=== PATIENT | female | born 1965 | race Two or more races ===

== ENCOUNTER → 2017-02-11 | Outpatient (CLI) | payer MEDICAID, MEDICARE ==
[2017-02-11 12:39] LABS: ABSOLUTE EOSINOPHILS # (AUTO) 0.2 10^3/uL (0.0-0.6); ABSOLUTE LYMPHOCYTES (AUTO) 1.5 10^3/uL (0.5-4.7); ABSOLUTE MONOCYTES (AUTO) 0.6 10^3/uL (0.1-1.4); ABSOLUTE NEUT (AUTO) 2.8 10^3/uL (1.7-8.2); BASOPHILS % (AUTO) 0.4 % (0-2); EOSINOPHILS % (AUTO) 3.7 % (0-6); HEMATOCRIT 47.1 % (36.0-47.0); HEMOGLOBIN 16.4 g/dL (12.0-15.5); HGB HCT DIFFERENCE 2.1; LYMPHOCYTES % (AUTO) 30.2 % (13-45); MEAN CORPUSCULAR HEMOGLOBIN 32.3 pg (27.0-33.4); MEAN CORPUSCULAR HGB CONC 34.8 g/dL (32.0-36.0); MEAN CORPUSCULAR VOLUME 93 fl (80-97); RED BLOOD COUNT 5.06 10^6/uL (3.72-5.28); RED CELL DISTRIBUTION WIDTH 12.5 % (11.5-14.0); SEGMENTED NEUTROPHILS % (AUTO) 54.7 % (42-78); WHITE BLOOD COUNT 5.1 10^3/uL (4.0-10.5)
[2017-02-11 13:07] LABS: ALANINE AMINOTRANSFERASE 50 U/L (9-52); ALBUMIN 4.5 g/dL (3.5-5.0); ALKALINE PHOSPHATASE 85 U/L (38-126); ANION GAP 16 (5-19); ASPARTATE AMINO TRANSFERASE 24 U/L (14-36); BILIRUBIN,DIRECT 0.5 mg/dL (0.0-0.4); BILIRUBIN,TOTAL 0.6 mg/dL (0.2-1.3); BLOOD UREA NITROGEN 10 mg/dL (7-20); CALCIUM 9.3 mg/dL (8.4-10.2); CARBON DIOXIDE 24 mmol/L (22-30); CHLORIDE 103 mmol/L (98-107); CREATININE RESULT 0.66 mg/dL (0.52-1.25); GLUCOSE 154 mg/dL (75-110); POTASSIUM 4.4 mmol/L (3.6-5.0); SODIUM 142.9 mmol/L (137-145); TOTAL PROTEIN 7.3 g/dL (6.3-8.2)
== END ==
LOC: OD 11:26
PROVIDERS: ATTEND Nurse Practitioner Family
DX: R22.1 Localized swelling, mass and lump, neck (principal)
CPT/HCPCS: 36415; 80053; 85025

== ENCOUNTER 2017-06-17 13:38 | Emergency (ER) | payer MEDICARE, MEDICAID ==
--- NOTE | 2017-06-17 14:34 | ER Document Report ---
ED Medical Screen (RME) - General Chief Complaint: Abdominal Pain Stated Complaint: STOMACH PAIN Time Seen by Provider: 06/17/17 14:27 Notes: RME DISCLOSURE I have seen this patient as part of a Rapid Medical Evaluation and, if applicable, placed any initially appropriate orders. The patient will be seen and fully evaluated, including a full history and physical exam, by a provider ( in Main ED or Fast Track) when a room becomes available. 52-year-old female sent here by her doctor's office for evaluation of her abdominal pain. The abdominal pain has been ongoing for 1 month but progressively worsening especially so in the past 1 week. She has not had any nausea vomiting diarrhea fevers chills. No prior history of colitis diverticulitis. The PCP faxed over some medical information regarding this patient. EXAM Tachycardic NOTE Patient declines pain medicine at this time TRAVEL OUTSIDE OF THE [place] IN LAST 30 DAYS: No - Related Data Allergies/Adverse Reactions: No Known Allergies Allergy (Verified 06/17/17 13:42) Past Medical History - Past Medical History Cardiac Medical History: Reports: Hx Hypercholesterolemia, Hx Hypertension Neurological Medical History: Reports: Hx Migraine Endocrine Medical History: Reports: Hx Diabetes Mellitus Type 2 Musculoskeltal Medical History: Reports Hx Arthritis Past Surgical History: Reports: Hx Cholecystectomy, Hx Orthopedic Surgery - Back Surgery, Hx Tubal Ligation - Immunizations Hx Diphtheria, Pertussis, Tetanus Vaccination: Yes Physical Exam - Vital signs Vitals: Temp Pulse Resp BP Pulse Ox 97.4 F 114 H 24 H 140/106 H 97 06/17/17 13:45 06/17/17 13:45 06/17/17 13:45 06/17/17 13:45 06/17/17 13:45 Course - Vital Signs Vital signs: Temp Pulse Resp BP Pulse Ox 97.4 F 114 H 24 H 140/106 H 97 06/17/17 13:45 06/17/17 13:45 06/17/17 13:45 06/17/17 13:45 06/17/17 13:45
[2017-06-17 15:48] LABS: ABSOLUTE BASOPHILS # (AUTO) 0.1 10^3/uL (0.0-0.2); ABSOLUTE EOSINOPHILS # (AUTO) 0.2 10^3/uL (0.0-0.6); ABSOLUTE MONOCYTES (AUTO) 0.8 10^3/uL (0.1-1.4); ABSOLUTE NEUT (AUTO) 7.8 10^3/uL (1.7-8.2); BASOPHILS % (AUTO) 0.7 % (0-2); EOSINOPHILS % (AUTO) 1.5 % (0-6); HEMOGLOBIN 18.2 g/dL (12.0-15.5); LYMPHOCYTES % (AUTO) 18.8 % (13-45); MEAN CORPUSCULAR HEMOGLOBIN 31.4 pg (27.0-33.4); MEAN CORPUSCULAR HGB CONC 34.4 g/dL (32.0-36.0); MEAN CORPUSCULAR VOLUME 91 fl (80-97); MONOCYTES % (AUTO) 6.9 % (3-13); PLATELET COUNT 396 10^3/uL (150-450); RED CELL DISTRIBUTION WIDTH 12.9 % (11.5-14.0); SEGMENTED NEUTROPHILS % (AUTO) 72.1 % (42-78); TOTAL CELLS COUNTED % (AUTO) 100 %; WHITE BLOOD COUNT 10.8 10^3/uL (4.0-10.5)
[2017-06-17 15:59] LABS: APPEARANCE,URINE SLIGHTLY-CLOUDY; BILIRUBIN,URINE NEGATIVE (NEGATIVE); COLOR,URINE YELLOW; GLUCOSE, URINE NEGATIVE (NEGATIVE); KETONES,URINE NEGATIVE (NEGATIVE); LEUKOCYTE ESTERASE,URINE NEGATIVE (NEGATIVE); NITRITE,URINE NEGATIVE (NEGATIVE); PROTEIN,URINE 100 mg/dL (NEGATIVE); UROBILINOGEN,URINE NEGATIVE mg/dL (<2.0)
[2017-06-17 16:06] LABS: ALANINE AMINOTRANSFERASE 40 U/L (9-52); ALBUMIN 5.1 g/dL (3.5-5.0); ALKALINE PHOSPHATASE 110 U/L (38-126); ANION GAP 10 (5-19); ASPARTATE AMINO TRANSFERASE 24 U/L (14-36); BILIRUBIN,DIRECT 0.2 mg/dL (0.0-0.4); BILIRUBIN,TOTAL 0.7 mg/dL (0.2-1.3); BLOOD UREA NITROGEN 13 mg/dL (7-20); CALCIUM 10.5 mg/dL (8.4-10.2); CARBON DIOXIDE 24 mmol/L (22-30); CHLORIDE 105 mmol/L (98-107); GLUCOSE 139 mg/dL (75-110); LIPASE 40.4 U/L (23-300); POTASSIUM 4.4 mmol/L (3.6-5.0); SODIUM 139.4 mmol/L (137-145)
[2017-06-17] MEDS ORDERED: HYDROMORPHONE HCL INJ/PF 2 MG/ML AMPULE IV ONE (16:16)
[2017-06-17] MEDS ORDERED: RINGERS SOLUTION,LACTATED 1,000 ML IV ONE (16:16)
[2017-06-17] MEDS ORDERED: MORPHINE SULFATE 10 MG/ML INJ IV ONE (16:21)
--- NOTE | 2017-06-17 16:23 | ER Document Report ---
ED General - General Mode of Arrival: Ambulatory Information source: Patient TRAVEL OUTSIDE OF THE [place] IN LAST 30 DAYS: No <SHARI FLYNN - Last Filed: 06/18/17 00:21> <DUARTE MCCALL - Last Filed: 06/18/17 00:25> - General Chief Complaint: Abdominal Pain Stated Complaint: STOMACH PAIN Time Seen by Provider: 06/17/17 14:27 Notes: Patient is a 52 year old female with a history of diabetes, Bipolar Disorder, menopause and cholecystectomy presents to the emergency department sent from PCP with a concern of acute abdomen complaining of multiple symptoms including right sided and lower abdominal pain, vaginal pain and bleeding onset 1 month ago worsening 1 week ago. Patient describes her abdominal pain as achy and stabbing and states it is now constant. Patient describes her vaginal bleeding as intermittent and states she notices it on toilet paper when she is wiping. Patient denies nausea, vomiting, hematuria, bloody stool, or hallucinations. Patient states she started menopause approximately 5-6 years ago. Patient states she has stopped all of her medications 1 week ago stating "I just don't want to take them anymore". Some of her medications that she discontinued include Oxycodone, Lyrica, Gabapentin and once daily Valium (done without consent of her PCP). (SHARI FLYNN) - Related Data Allergies/Adverse Reactions: No Known Allergies Allergy (Verified 06/17/17 13:42) Past Medical History - General Information source: Patient - Social History Smoking Status: Current Every Day Smoker Chew tobacco use (# tins/day): No Frequency of alcohol use: None Drug Abuse: None Family History: Reviewed & Not Pertinent, CAD Patient has suicidal ideation: No Patient has homicidal ideation: No - Past Medical History Cardiac Medical History: Reports: Hx Hypercholesterolemia, Hx Hypertension Neurological Medical History: Reports: Hx Migraine Endocrine Medical History: Reports: Hx Diabetes Mellitus Type 2 Musculoskeltal Medical History: Reports Hx Arthritis Past Surgical History: Reports: Hx Cholecystectomy, Hx Orthopedic Surgery - Back Surgery, Hx Tubal Ligation - Immunizations Hx Diphtheria, Pertussis, Tetanus Vaccination: Yes <SHARI FLYNN - Last Filed: 06/18/17 00:21> Review of Systems - Review of Systems Constitutional: No symptoms reported EENT: No symptoms reported Cardiovascular: No symptoms reported Respiratory: No symptoms reported Gastrointestinal: See HPI, Abdominal pain Genitourinary: No symptoms reported Female Genitourinary: See HPI, Post menopausal, Vaginal bleeding Musculoskeletal: No symptoms reported Skin: No symptoms reported Hematologic/Lymphatic: No symptoms reported Neurological/Psychological: No symptoms reported -: Yes All other systems reviewed and negative <GEESHARI - Last Filed: 06/18/17 00:21> Physical Exam <SHARI FLYNN - Last Filed: 06/18/17 00:21> <DUARTE MCCALL - Last Filed: 06/18/17 00:25> - Vital signs Vitals: Temp Pulse Resp BP Pulse Ox 97.4 F 114 H 24 H 140/106 H 97 06/17/17 13:45 06/17/17 13:45 06/17/17 13:45 06/17/17 13:45 06/17/17 13:45 - Notes Notes: GENERAL: Alert, interacts well. Tearful, appears uncomfortable. Hypertensive. HEAD: Normocephalic, atraumatic. EYES: Pupils equal, round, and reactive to light. Extraocular movements intact. ENT: Oral mucosa moist, tongue midline. NECK: Full range of motion. Supple. Trachea midline. LUNGS: Clear to auscultation bilaterally, no wheezes, rales, or rhonchi. No respiratory distress. HEART: Tachycardic. Regular rate and rhythm. No murmurs, gallops, or rubs. ABDOMEN: Soft, bilateral lower quadrant and LUQ tenderness to palpation. No guarding, rigidity or rebound. Non-distended. Bowel sounds slightly decreased. EXTREMITIES: Moves all 4 extremities spontaneously. NEUROLOGICAL: Alert and oriented x3. Normal speech. PSYCH: Tearful. Appears uncomfortable. SKIN: Warm, dry, normal turgor. No rashes or lesions noted. BACK: CVA tenderness to percussion. PELVIC: No rashes or obvious signs of infection on labia. Thick clumpy discharge in vaginal canal, no pus or blood, bilateral adnexal tenderness to palpation. Cervical motion tenderness to palpation. Adnexal tenderness bilaterally is greater than cervical motion tenderness. (SHARI FLYNN) Course - Laboratory Result Diagrams: 06/17/17 15:15 06/17/17 15:15 <SHARI FLYNN - Last Filed: 06/18/17 00:21> - Laboratory Result Diagrams: 06/17/17 15:15 06/17/17 15:15 <DUARTE MCCALL - Last Filed: 06/18/17 00:25> - Re-evaluation Re-evalutation: 06/17/17 20:23 CBC shows slight leukocytosis 10.8, hemoglobin slightly elevated at 18.2, chemistries unremarkable, LFTs normal, lipase normal, urinalysis shows 100 of protein and some dehydration with specific gravity of 1.030, no evidence of urinary tract infection, no significant blood only 5 RBCs dipstick negative, wet prep shows bacteria but no trichomonas, no yeast. Suspect bacterial vaginosis and will treat with Flagyl. Chlamydia and gonorrhea not detected. CT scan of the abdomen and pelvis was performed given her tenderness to palpation and her tachycardia. CT scan of the abdomen and pelvis does not show any acute process. Discussed with patient that on her pelvic exam I do not see any evidence of vaginal bleeding however as she is postmenopausal and states she has had vaginal bleeding is very important her to follow-up with a parish worker as an outpatient for uterine cancer workup. Discussed with patient that her clinical picture is not completely clear at this point as she does have persistent mild tachycardia and hypertension, this can definitely be confused by the fact that she suddenly stopped taking chronic benzodiazepines, narcotics and Lyrica 1 week ago, all of her symptoms could certainly be withdrawal symptoms at the very tail end. There is no evidence of serious bacterial infection at this time , no evidence of intra-abdominal catastrophe. No suspicion for ovarian torsion at this time. Patient will need to follow-up further with gynecology to investigate the vaginal bleeding. Patient is encouraged to follow-up with her primary care physician to discuss which of her chronic medication she needs to restart and which ones it is okay for her to have stopped on her own. Patient is aware that she will need to return for fevers, worsening vomiting or diarrhea of which she has had none while in the emergency department, worsening abdominal pain or any new or concerning symptoms. 06/17/17 20:25 I was concerned by the patient's statement that she just wants this to all be done and so we had an extensive conversation regarding her history of depression and whether or not she is suicidal, patient is adamant that she is not suicidal, states that she attempted suicide once when she was 11 years old and has not been suicidal ever again since then. She is currently 52. 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 Patient already has access to a psychiatrist and a primary care physician. Patient is not considered to be a suicide risk at this time. Discharged home. 06/18/17 00:24 Doubt PID given that her adnexal tenderness is greater than her cervical motion tenderness and there is no purulent discharge from the cervical office. (DUARTE MCCALL) - Vital Signs Vital signs: Temp Pulse Resp BP Pulse Ox 98.8 F 114 H 14 120/80 96 06/17/17 18:46 06/17/17 13:45 06/17/17 20:34 06/17/17 20:35 06/17/17 20:34 - Laboratory Laboratory results interpreted by me: 06/17/17 06/17/17 06/17/17 15:15 15:15 15:15 WBC 10.8 H RBC 5.80 H Hgb 18.2 H Hct 53.0 H Glucose 139 H Calcium 10.5 H Albumin 5.1 H Urine Protein 100 H Discharge <SHARI FLYNN - Last Filed: 06/18/17 00:21> <DUARTE MCCALL - Last Filed: 06/18/17 00:25> - Discharge Clinical Impression: Nausea vomiting and diarrhea, Postmenopausal vaginal bleeding, Bacterial vaginosis, Medication non-compliance due to excessive pill burden, Narcotic withdrawal Abdominal pain Qualifiers: Abdominal location: lower abdomen, unspecified Qualified Code(s): R10.30 - Lower abdominal pain, unspecified Hypertension Qualifiers: Hypertension type: essential hypertension Qualified Code(s): I10 - Essential ( primary) hypertension Condition: Stable Disposition: HOME, SELF-CARE Additional Instructions: I do not know exactly what is causing your abdominal pain. Today your CAT scan did not show any sign of infection or surgical pathology. There was no evidence of appendicitis or gallbladder problem. Urinalysis did not show any signs of urinary tract infection or kidney stone. Your blood work also did not show signs of severe dehydration, kidney failure or liver failure. It is very important that she discuss with your primary care physician all of the medications that you have stopped. Withdrawal from pain medications can cause many of the symptoms that she were having. You have several chronic illnesses including high blood pressure and depression that will need to be followed very closely by your primary care physician and her psychiatrist if you are going to stop taking all of your medications. Please return for fevers, worsening pain, uncontrollable vomiting or diarrhea or any new or concerning symptoms. Please take Imodium for diarrhea as directed [id number]. For the vaginal bleeding that you have been having it is very important that you follow-up with a parish worker. It is not normal to have vaginal bleeding after you have had menopause. This is a sign that is concerning for possible cancer. She will need to see a parish worker to rule out cancer. Vaginosis, Bacterial Your exam shows you have bacterial vaginosis. This condition is due to an overgrowth of bacteria in the vagina. Symptoms may include vaginal itching or pain, a smelly discharge, and sometimes burning with urination. Normally this is not transmitted by sexual contact. Vaginosis can be treated with oral or topical antibiotics. Metronidazole ( Flagyl) pills are usually effective. Topical vaginal creams include Cleocin and Metro-Gel. You should avoid sexual contact until your symptoms are all better. Call the doctor if you develop pelvic pain, fever, or problems with urination, or if you don't improve as expected. Referrals: NANETTE COFFMAN, [facility] [facility] [Primary Care Provider] - Follow up as needed PANFILO HASSAN MD [NO LOCAL MD] - Follow up in 3-5 days Scribe Attestation: 06/18/17 00:25 I personally performed the services described in the documentation, reviewed and edited the documentation which was dictated to the scribe in my presence, and it accurately records my words and actions. (DUARTE MCCALL) Scribe Documentation - Scribe Written by Tu:: Tu Mccoy, 06/17/2017 17:34 acting as scribe for :: Skip <SHARI FLYNN - Last Filed: 06/18/17 00:21>
[2017-06-17 17:19] LABS: BACTERIA (WET MOUNT) 3+ BACTERIA SEEN; EPITHELIALS (WET MOUNT) 3+ EPITHELIALS SEEN; RBCS (WET MOUNT) RARE RBCS SEEN; T.VAGINALIS (WET MOUNT) NO TRICHOMONAS SEEN; WBCS (WET MOUNT) FEW WBCS SEEN; YEAST (WET MOUNT) NO YEAST SEEN
--- NOTE | 2017-06-17 17:24 | RADIOLOGY REPORT (SQ) ---
EXAM DESCRIPTION: CT ABD/PELVIS WITH IV ONLY COMPLETED DATE/TIME: 06/17/2017 4:57 pm REASON FOR STUDY: diffuse abd pain; eval perf/ appy/ sbo/ colitis/ etc Attention left abdomen. COMPARISON: None. TECHNIQUE: CT scan of the abdomen and pelvis performed using helical scanning technique with dynamic intravenous contrast injection. No oral contrast. Images reviewed with lung, soft tissue, and bone windows. Reconstructed coronal and sagittal MPR images reviewed. Delayed images for evaluation of the urinary system also acquired. All images stored on PACS. All CT scanners at this facility use dose modulation, iterative reconstruction, and/or weight based d osing when appropriate to reduce radiation dose to as low as reasonably achievable (ALARA). [facility]: Dose Right [facility]: CareDose [facility]: Dose Right [facility]: Teradose 4D [facility]: Amlogic CONTRAST TYPE AND DOSE: contrast/concentration: Isovue 370.00 mg/ml; Total Contrast Delivered: 76.0 ml; Total Saline Delivered: 47.0 ml 76 cc Isovue 370 intravenously RENAL FUNCTION: Creatinine 0.56 RADIATION DOSE: CT Rad equipment meets quality standard of care and radiation dose reduction techniq ues were employed. CTDIvol: 7.1 - 10.1 mGy. DLP: 881 mGy-cm.. LIMITATIONS: None. FINDINGS: LOWER CHEST: No significant findings. No nodules or infiltrates. LIVER: Normal size. No masses. No dilated ducts. SPLEEN: Normal size. No focal lesions. PANCREAS: No masses. No significant calcifications. No adjacent inflammation or peripancreatic fluid collections. Pancreatic duct not dilated. GALLBLADDER: The gallbladder is surgically absent. ADRENAL GLANDS: No significant masses or asymmetry. RIGHT KIDNEY AND URETER: No solid masses. No significant calcifications. No hydronephrosis or hyd roureter. LEFT KIDNEY AND URETER: No solid masses. No significant calcifications. No hydronephrosis or hydr oureter. AORTA AND VESSELS: Aortic calcification seen without aneurysm. RETROPERITONEUM: No retroperitoneal adenopathy, hemorrhage or masses. BOWEL AND PERITONEAL CAVITY: No masses or inflammatory changes. No free fluid or peritoneal masses. APPENDIX: Normal. PELVIS: No mass. No free fluid. Normal bladder. ABDOMINAL WALL: No masses. No hernias. BONES: No compression fractures of the lumbar spine. Operative change noted L4-L5. OTHER: No other significant finding. IMPRESSION: Nothing acute. TECHNICAL DOCUMENTATION: JOB ID: [id number] Quality ID # [id number]: Final reports with documentation of one or more dose reduction techniques (e.g., Au tomated exposure control, adjustment of the mA and/or kV according to patient size, use of iterative reconstruction technique) 2010 [employer]- All Rights Reserved Reading location - IP/workstation name: [email or web address]
[2017-06-17 18:43] LABS: CHLAM PCR NOT DETECTED (NOT DETECT); GON PCR NOT DETECTED (NOT DETECT)
[2017-06-17] MEDS ORDERED: HYDROCODONE/ACETAMINOPHEN 5-325 MG TABLET PO ONE (20:01)
[2017-06-17] MEDS ORDERED: METRONIDAZOLE 500 MG TABLET PO ONE (20:01)
[2017-06-17 20:38] VITALS: BP 120/80
== END 2017-06-17 20:38 | disposition home or self-care (01) ==
LOC: ER 13:38
DX: N95.0 Postmenopausal bleeding (principal); N76.0 Acute vaginitis; B96.89 Other specified bacterial agents as the cause of diseases classified elsewhere; R10.31 Right lower quadrant pain; R10.814 Left lower quadrant abdominal tenderness; R10.812 Left upper quadrant abdominal tenderness; R11.2 Nausea with vomiting, unspecified; R19.7 Diarrhea, unspecified; R10.2 Pelvic and perineal pain; F11.23 Opioid dependence with withdrawal; T40.2X6A Underdosing of other opioids, initial encounter; T42.6X6A Underdosing of other antiepileptic and sedative-hypnotic drugs, initial encounter; T42.4X6A Underdosing of benzodiazepines, initial encounter; Z91.128 Patient's intentional underdosing of medication regimen for other reason; Z90.49 Acquired absence of other specified parts of digestive tract; I10 Essential (primary) hypertension; E11.9 Type 2 diabetes mellitus without complications; E86.0 Dehydration; R00.0 Tachycardia, unspecified
CPT/HCPCS: 99284; 96361; 96374; 36415; 87210; 83690; 85025; 80053; 81001; 87491; 87591; 74177; J2270; A9270 ×2; J7120

== ENCOUNTER 2018-01-16 11:24 | Inpatient (IN) | payer MEDICARE, MEDICAID ==
[2018-01-16] MEDS ORDERED: NORMAL SALINE 1000 ML 1,000 ML IV ONE ×2 (12:06→14:56)
--- NOTE | 2018-01-16 12:11 | ER Document Report ---
ED General - General Chief Complaint: High Blood Sugar Stated Complaint: DIFFICULTY BREATHING Time Seen by Provider: 01/16/18 11:46 Information source: Patient Notes: Patient is a 53-year-old female with a very long history of present illness. Patient states that for around 1 month she has been vomiting daily. She states she is lost 30 pounds. She states she is also recently had runny nose, congestion, cough, anterior chest discomfort that is nonradiating. Pain is worse with the coughing. She denies any calf pain or leg swelling. She denies any recent trips or travel. She denies any dysuria or diarrhea. Patient also states for this 1 month she has had some intermittent discomfort to the epigastric region when eating. She denies any lower abdominal discomfort. Patient states she saw her primary dentist yesterday about dental caps and she was told that she should have "my thyroid checked". The dentist stated he palpated an irregularity of the thyroid. Patient states that she does not want to take insulin secondary to her dislike of needles. She states she was on metformin previously but did not tolerate appropriately. She states she has been taking Januvia. TRAVEL OUTSIDE OF THE [place] IN LAST 30 DAYS: No - HPI Onset: Other - See above Onset/Duration: Gradual Quality of pain: Achy Severity: Mild Pain Level: Denies Associated symptoms: Other - See above Exacerbated by: Denies Relieved by: Denies Similar symptoms previously: Yes Recently seen / treated by doctor: No - Related Data Allergies/Adverse Reactions: No Known Allergies Allergy (Verified 06/17/17 13:42) Past Medical History - Social History Smoking Status: Current Every Day Smoker Family History: Reviewed & Not Pertinent, CAD Patient has suicidal ideation: No Patient has homicidal ideation: No - Past Medical History Cardiac Medical History: Reports: Hx Hypercholesterolemia, Hx Hypertension Neurological Medical History: Reports: Hx Migraine Endocrine Medical History: Reports: Hx Diabetes Mellitus Type 2 Renal/ Medical History: Denies: Hx Peritoneal Dialysis Musculoskeletal Medical History: Reports Hx Arthritis Past Surgical History: Reports: Hx Cholecystectomy, Hx Orthopedic Surgery - Back Surgery, Hx Tubal Ligation - Immunizations Hx Diphtheria, Pertussis, Tetanus Vaccination: Yes Review of Systems - Review of Systems Constitutional: denies: Fever EENT: Nose congestion. denies: Eye discharge Cardiovascular: denies: Chest pain, Palpitations Respiratory: denies: Short of breath Gastrointestinal: denies: Vomiting Genitourinary: denies: Dysuria Musculoskeletal: denies: Leg swelling Skin: Other - no hives. denies: Rash Neurological/Psychological: Other - no slurred speech -: Yes All other systems reviewed and negative Physical Exam - Vital signs Vitals: Pulse Ox 99 01/16/18 11:34 Notes: Reviewed vital signs and nursing note as charted by RN. CONSTITUTIONAL: Alert and oriented and responds appropriately to questions. Well -appearing; well-nourished HEAD: Normocephalic; atraumatic EYES: PERRL; full extraocular range of motion ENT: Normal nose; no rhinorrhea; very dry mucous membranes; pharynx without lesions noted NECK: Supple without meningismus; non-tender; no cervical lymphadenopathy, no palpable thyroid masses CARD: Tachycardic and regular; no murmurs; symmetric distal pulses RESP: Normal chest excursion without splinting or tachypnea; breath sounds clear and equal bilaterally; scattered rhonchi without wheezing or rales ABD/GI: Normal bowel sounds; non-distended; soft, non-tender currently to deep palpation of all 4 quadrants of the abdomen BACK: The back appears normal and is non-tender to palpation EXT: Normal ROM in all joints; non-tender to palpation; no edema SKIN: No acute lesions noted NEURO: CN 2-12 intact; 5/5 bilateral upper and lower extremity strength with sensation intact to light touch PSYCH: The patient's mood and manner are appropriate. Grooming and personal hygiene are appropriate. Course - Re-evaluation Re-evalutation: 01/16/18 12:10 Given the above history and physical examination with the patient's Accu-Chek read as "high", we will obtain basic labs, venous blood gas, provide fluids, obtain an EKG, a d-dimer, place the patient on the monitor, and reassess. EKG shows a heart rate of 101, sinus tachycardia, normal axis, no obvious ST elevation or depression. I currently do have a low pretest probability for pulmonary embolism. A d- dimer has been added. I believe dissection to be extremely unlikely. 01/16/18 14:58 D-dimer is recorded. Abdomen is soft and nontender. Second liter fluid has been given with an IV bolus of 5 units of regular insulin. CT scan of the abdomen and pelvis has been ordered. X-ray of the chest shows no obvious infiltrate or pneumothoraces. 01/16/18 16:37 I have added another liter of fluid as well as 5 units of IV insulin. CT scan of the abdomen and pelvis shows no acute abnormalities. I will admit the patient for the persistent vomiting, hypoglycemia, with gentle fluid rehydration and possibly better diabetes management. - Vital Signs Vital signs: Temp Pulse Resp BP Pulse Ox 99.4 F 100 15 166/88 H 96 01/16/18 11:55 01/16/18 11:55 01/16/18 12:00 01/16/18 11:55 01/16/18 13:00 - Laboratory Result Diagrams: 01/16/18 11:50 01/16/18 11:50 Laboratory results interpreted by me: 01/16/18 01/16/18 01/16/18 11:45 11:50 11:50 RBC 5.33 H Hgb 17.4 H Hct 49.6 H Sodium 134.2 L Chloride 97 L BUN 4 L Creatinine 0.46 L Glucose 497 H* POC Glucose 531 H* Alkaline Phosphatase 139 H Discharge - Discharge Clinical Impression: Hyperglycemia Vomiting Qualifiers: Vomiting type: unspecified Vomiting Intractability: intractable Nausea presence : with nausea Qualified Code(s): R11.2 - Nausea with vomiting, unspecified Condition: Fair Disposition: ADMITTED INPATIENT Admitting Provider: Hospitalist Unit Admitted: Medical Floor Referrals: NANETTE COFFMAN [facility] [COMMUNITY BASED STAFF] - Follow up as needed
--- NOTE | 2018-01-16 12:36 | RADIOLOGY REPORT (SQ) ---
EXAM DESCRIPTION: CHEST SINGLE VIEW COMPLETED DATE/TIME: 01/16/2018 12:19 pm REASON FOR STUDY: 12; SOB/Pain COMPARISON: November 2012 EXAM PARAMETERS: NUMBER OF VIEWS: One view. TECHNIQUE: Single frontal radiographic view of the chest acquired. RADIATION DOSE: NA LIMITATIONS: None. FINDINGS: LUNGS AND PLEURA: No opacities, masses or pneumothorax. No pleural effusion. MEDIASTINUM AND HILAR STRUCTURES: No masses. Contour normal. HEART AND VASCULAR STRUCTURES: Heart normal in size. Normal vasculature. BONES: No acute findings. HARDWARE: None in the chest. OTHER: No other significant finding. IMPRESSION: NO ACUTE RADIOGRAPHIC FINDING IN THE CHEST. TECHNICAL DOCUMENTATION: JOB ID: [id number] [employer]- All Rights Reserved Reading location - IP/workstation name: [email or web address]
[2018-01-16 13:29] LABS: ABSOLUTE EOSINOPHILS # (AUTO) 0.2 10^3/uL (0.0-0.6); ABSOLUTE LYMPHOCYTES (AUTO) 1.5 10^3/uL (0.5-4.7); ABSOLUTE MONOCYTES (AUTO) 0.4 10^3/uL (0.1-1.4); ABSOLUTE NEUT (AUTO) 6.4 10^3/uL (1.7-8.2); BASOPHILS % (AUTO) 0.3 % (0-2); EOSINOPHILS % (AUTO) 2.4 % (0-6); HEMATOCRIT 49.6 % (36.0-47.0); HEMOGLOBIN 17.4 g/dL (12.0-15.5); MEAN CORPUSCULAR HEMOGLOBIN 32.6 pg (27.0-33.4); MEAN CORPUSCULAR VOLUME 93 fl (80-97); MONOCYTES % (AUTO) 4.9 % (3-13); PLATELET COUNT 273 10^3/uL (150-450); RED BLOOD COUNT 5.33 10^6/uL (3.72-5.28); RED CELL DISTRIBUTION WIDTH 13.2 % (11.5-14.0); SEGMENTED NEUTROPHILS % (AUTO) 74.4 % (42-78); TOTAL CELLS COUNTED % (AUTO) 100 %; WHITE BLOOD COUNT 8.6 10^3/uL (4.0-10.5)
[2018-01-16 13:46] LABS: ALANINE AMINOTRANSFERASE 29 U/L (9-52); ALBUMIN 3.9 g/dL (3.5-5.0); ALKALINE PHOSPHATASE 139 U/L (38-126); ANION GAP 13 (5-19); ASPARTATE AMINO TRANSFERASE 20 U/L (14-36); BILIRUBIN,DIRECT 0.3 mg/dL (0.0-0.4); BILIRUBIN,TOTAL 0.7 mg/dL (0.2-1.3); BLOOD UREA NITROGEN 4 mg/dL (7-20); CALCIUM 8.8 mg/dL (8.4-10.2); CARBON DIOXIDE 24 mmol/L (22-30); CHLORIDE 97 mmol/L (98-107); LIPASE 125.2 U/L (23-300); SODIUM 134.2 mmol/L (137-145); TOTAL PROTEIN 6.5 g/dL (6.3-8.2)
[2018-01-16 13:59] LABS: NT PRO BNP 16 pg/mL (5-900); TROPONIN I < 0.012 ng/mL
[2018-01-16 14:01] LABS: GLUCOSE 497 mg/dL (75-110)
[2018-01-16] MEDS ORDERED: INSULIN REG, HUMAN 100 UNIT/ML 3 ML VIAL (PYX) IV ONE (14:56)
--- NOTE | 2018-01-16 16:26 | RADIOLOGY REPORT (SQ) ---
EXAM DESCRIPTION: CT ABD/PELVIS WITH IV ONLY COMPLETED DATE/TIME: 01/16/2018 4:06 pm REASON FOR STUDY: 12; abdominal pain COMPARISON: 06/17/2017. TECHNIQUE: CT scan of the abdomen and pelvis performed using helical scanning technique with dynamic intravenous contrast injection. No oral contrast. Images reviewed with lung, soft tissue, and bone windows. Reconstructed coronal and sagittal MPR images reviewed. Delayed images for evaluation of the urinary system also acquired. All images stored on PACS. All CT scanners at this facility use dose modulation, iterative reconstruction, and/or weight based d osing when appropriate to reduce radiation dose to as low as reasonably achievable (ALARA). [facility]: Dose Right [facility]: CareDose [facility]: Dose Right [facility]: Teradose 4D [facility]: [employer] CONTRAST TYPE AND DOSE: contrast/concentration: Isovue 350.00 mg/ml; Total Contrast Delivered: 69.0 ml; Total Saline Delivered: 20.0 ml RENAL FUNCTION: BUN 4 creatinine 0.46. RADIATION DOSE: CT Rad equipment meets quality standard of care and radiation dose reduction techniq ues were employed. CTDIvol: 5.8 - 7.8 mGy. DLP: 730 mGy-cm.. LIMITATIONS: None. FINDINGS: LOWER CHEST: No significant findings. No nodules or infiltrates. LIVER: Normal size. Diffuse fatty infiltration. No masses. No dilated ducts. SPLEEN: Normal size. No focal lesions. PANCREAS: No masses. No significant calcifications. No adjacent inflammation or peripancreatic fluid collections. Pancreatic duct not dilated. GALLBLADDER: Surgically absent. ADRENAL GLANDS: No significant masses or asymmetry. RIGHT KIDNEY AND URETER: No solid masses. No significant calcifications. No hydronephrosis or hyd roureter. LEFT KIDNEY AND URETER: No solid masses. No significant calcifications. No hydronephrosis or hydr oureter. AORTA AND VESSELS: No aneurysm. No dissection. Renal arteries, SMA, celiac without stenosis. RETROPERITONEUM: No retroperitoneal adenopathy, hemorrhage or masses. BOWEL AND PERITONEAL CAVITY: No masses or inflammatory changes. No free fluid or peritoneal masses. APPENDIX: Normal. PELVIS: No mass. No free fluid. Normal bladder. ABDOMINAL WALL: No masses. No hernias. BONES: No significant or acute findings. Surgical changes in the lower lumbar spine with hardware. OTHER: No other significant finding. IMPRESSION: NO SIGNIFICANT OR ACUTE FINDING IN THE ABDOMEN OR PELVIS ON CT SCAN WITH IV CONTRAST. TECHNICAL DOCUMENTATION: JOB ID: [id number] Quality ID # [id number]: Final reports with documentation of one or more dose reduction techniques (e.g., Au tomated exposure control, adjustment of the mA and/or kV according to patient size, use of iterative reconstruction technique) 2010 [employer]- All Rights Reserved Reading location - IP/workstation name: [email or web address] [id number]
[2018-01-16] MEDS ORDERED: ACETAMINOPHEN 325 MG TABLET PO ONE (16:27)
[2018-01-16 17:55] LABS: VENOUS BLOOD BASE EXCESS -2.6 mmol/L; VENOUS BLOOD HCO3 22.1 mmol/L (20-32); VENOUS BLOOD PCO2 38.3 mmHg (35-63); VENOUS BLOOD PH 7.38 (7.30-7.42)
[2018-01-16] MEDS ORDERED: MAG HYDROX/AL HYDROX/SIMETH SUSP 30 ML UDCUP PO PRN (19:14)
[2018-01-16] MEDS ORDERED: IPRATROPIUM/ALBUTEROL 0.5-2.5 MG/3 ML AMPUL NEB PRN (19:14)
[2018-01-16] MEDS ORDERED: ACETAMINOPHEN 325 MG TABLET PO PRN (19:14)
[2018-01-16] MEDS ORDERED: DEXTROSE 50%-WATER 25 GM/50 ML DISP.SYRIN IV PRN ×2 (19:33)
[2018-01-16] MEDS ORDERED: DEXTROSE 40% GEL 15 GM TUBE PO PRN ×2 (19:33)
[2018-01-16] MEDS ORDERED: GLUCAGON,HUMAN RECOMB 1 MG INJ IM PRN (19:33)
[2018-01-16] MEDS: OXYCODONE HCL IR 5 MG TABLET PO PRN (19:53)
[2018-01-16] MEDS ORDERED: NICOTINE 14 MG/24 HR PATCH.TD24 TD PRN (20:32)
--- NOTE | 2018-01-16 20:36 | PDOC H&P ---
History of Present Illness Admission Date/PCP: 01/16/18 16:41 History of Present Illness: LLOYD DOMINGO is a 53 year old female with a history of asthma and diabetes. Unfortunately she continues to smoke and does not follow a diabetic diet. Approximately 1 month ago she began noticing increasing shortness of breath. This has worsened over the last 4 weeks. In addition she has been having significant frequency and weight loss. She also reports discomfort on to the sternum with deep breathing. She denies any fever, chills or productive cough. She does have a dry cough. She has had multiple neck and back surgeries and is a chronic pain patient. The cough and difficulty breathing worsen her back pain. She has also undergone multiple surgeries for endometriosis and has fairly consistent abdominal pain. Over the last 7-10 days her appetite has decreased and nausea has increased with fairly regular vomiting after meals. She presents feeling markedly unwell, with difficulty breathing, exacerbation of her spine and abdominal pain Past Medical History Cardiac Medical History: Reports: Hyperlipidema, Hypertension Pulmonary Medical History: Reports: Asthma EENT Medical History: Reports: None Neurological Medical History: Reports: Migraine Denies: Hemorrhagic CVA, Ischemic CVA Endocrine Medical History: Reports: Diabetes Mellitus Type 2, Other - Gestational diabetes Renal/ Medical History: Reports: Other - Endometriosis Denies: Chronic Kidney Disease, End Stage Renal Disease, Nephrolithiasis Malignancy Medical History: Reports: None GI Medical History: Reports: Other - Steatohepatosis Denies: Cirrhosis Musculoskeltal Medical History: Reports: Arthritis, Other - Chronic pain Skin Medical History: Denies: Eczema, Psoriasis Psychiatric Medical History: Reports: Depression, Tobacco Dependency Traumatic Medical History: Reports: None Hematology: Denies: Anemia, Hemophilia, Bleeding Tendencies, Neutropenia Infectious Medical History: Reports: None Past Surgical History Past Surgical History: Reports: Cholecystectomy, Orthopedic Surgery - The patient has had multiple cervical and thoracolumbar fusions., Tubal Ligation, Other - The patient has had several exploratory surgeries for endometriosis. Social History Information Source: Patient Lives with: Family Smoking Status: Current Every Day Smoker Cigarettes Packs Per Day: 2 Number of Years Smokin Frequency of Alcohol Use: None Hx Recreational Drug Use: No Drugs: None Hx Prescription Drug Abuse: No - Patient is on chronic narcotic analgesia. She denies any history of addict - Advance Directive Resuscitation Status: Full Code Family History Family History: CAD, CVA, DM, Hyperlipidemia, Hypertension Parental Family History Reviewed: Yes - Parents are still living. Both have hypertension and diabetes. Children Family History Reviewed: Yes - Son with hydronephrosis. Sibling(s) Family History Reviewed.: Yes - Multiple siblings with coronary artery disease. Medication/Allergy Home Medications: Albuterol Sulfate [Proair HFA Inhalation Aerosol 8.5 gm MDI] 2 puff IH Q4H PRN # 1 mdi 07/02/14 Diazepam [Valium] 10 mg PO QHS 01/16/18 Lisinopril [Prinivil 5 mg Tablet] 5 mg PO DAILY 01/16/18 Oxycodone HCl [Oxycodone HCl 10 MG Tablet] 10 mg PO Q6H 01/16/18 Rosuvastatin Calcium [Crestor 10 mg Tablet] 10 mg PO DAILY 01/16/18 Sitagliptin Phosphate [Januvia] 100 mg PO DAILY 01/16/18 Allergies/Adverse Reactions: No Known Allergies Allergy (Verified 06/17/17 13:42) Review of Systems Constitutional: PRESENT: fatigue, weakness, other - Pain especially neck and back Eyes: PRESENT: visual disturbances - Reports blurry vision of late. Intermittent. Ears: ABSENT: hearing changes Nose, Mouth, and Throat: PRESENT: headache(s), sore throat - From coughing, other - Hoarse voice Breasts: ABSENT: as per HPI, other Cardiovascular: PRESENT: chest pain - Substernal discomfort with deep breathing and coughing.. ABSENT: edema, palpitations Respiratory: PRESENT: cough, dyspnea. ABSENT: hemoptysis, sputum Gastrointestinal: PRESENT: abdominal pain, nausea, vomiting. ABSENT: constipation, diarrhea Genitourinary: PRESENT: other - Polyuria. ABSENT: difficulty urinating, dysuria Integumentary: ABSENT: diaphoresis, lesions, rash Neurological: ABSENT: abnormal gait, dizziness, numbness, paresthesias Psychiatric: PRESENT: anxiety, depression Endocrine: PRESENT: polyuria Hematologic/Lymphatic: ABSENT: easy bleeding, easy bruising Allergic/Immunologic: ABSENT: seasonal rhinorrhea Physical Exam Vital Signs: Temp Pulse Resp BP Pulse Ox 98.3 F 91 17 119/82 100 01/16/18 18:39 01/16/18 18:39 01/16/18 18:39 01/16/18 18:39 01/16/18 18:39 Intake & Output 01/15/18 01/16/18 01/17/18 06:59 06:59 06:59 Intake Total 1999 Balance 2000 Weight 65.9 kg General appearance: PRESENT: cooperative, mild distress, well-developed, well- nourished, other Head exam: PRESENT: atraumatic, normocephalic Eye exam: PRESENT: conjunctiva pink, EOMI, nystagmus. ABSENT: scleral icterus Ear exam: PRESENT: normal external ear exam Mouth exam: PRESENT: dry mucosa Teeth exam: ABSENT: dental caries, dental tenderness Throat exam: ABSENT: tonsillar erythema, tonsillar exudate Neck exam: PRESENT: tenderness - Posterior cervical spine and limited range of motion from previous neck fusions. ABSENT: carotid bruit, full ROM Respiratory exam: PRESENT: clear to auscultation mar, symmetrical, tachypnea. ABSENT: chest wall tenderness, rhonchi, stridor, wheezes Cardiovascular exam: PRESENT: RRR, +S1, +S2, systolic murmur - 2/6 GI/Abdominal exam: PRESENT: normal bowel sounds, soft, tenderness - Mild diffuse. ABSENT: distended, guarding Rectal exam: PRESENT: deferred Gentrourinary exam: PRESENT: other - Deferred Extremities exam: PRESENT: other - Decreased range of motion secondary to back pain.. ABSENT: calf tenderness, clubbing, pedal edema Neurological exam: PRESENT: alert, awake, oriented to person, oriented to place , oriented to time, oriented to situation, CN II-XII grossly intact Psychiatric exam: PRESENT: other - Her affect reflects her clinical condition. Skin exam: PRESENT: dry, intact, warm. ABSENT: cyanosis, rash Results Laboratory Results: 01/16/18 17:29 VBG pH 7.38 VBG pCO2 38.3 VBG HCO3 22.1 VBG Base Excess -2.6 Impressions: Chest X-Ray 01/16/18 12:06 IMPRESSION: NO ACUTE RADIOGRAPHIC FINDING IN THE CHEST. Abdomen/Pelvis CT 01/16/18 14:56 IMPRESSION: NO SIGNIFICANT OR ACUTE FINDING IN THE ABDOMEN OR PELVIS ON CT SCAN WITH IV CONTRAST. Assessment & Plan - Diagnosis (1) Diabetes mellitus type 2 in nonobese Is this a current diagnosis for this admission?: Yes Plan: Patient was given 5 units of insulin in the emergency department. She admits poor compliance to her medication regimen and diet. The marked hyperglycemia was reflected with her polyuria. It is likely that it is contributing to all of her symptoms. I will give her another liter of IV fluid. I have placed her on a Humalog sliding scale. I am holding her Januvia at this time. In addition the patient will be on a diabetic diet. It is likely that she will also see improved glucose control with dietary compliance. (2) Asthma Qualifiers: Asthma severity: mild Asthma persistence: persistent Asthma complication type: with acute exacerbation Qualified Code(s): J45.31 - Mild persistent asthma with (acute) exacerbation Is this a current diagnosis for this admission?: Yes Plan: The patient is on Advair at home. I have ordered the Advair 250/50 Diskus as well as as needed albuterol nebulizers. Her symptoms are not markedly pronounced and so I have not initiated high-dose steroid therapy. Oxygen will be available and will try to maintain her saturation greater than 90%. Because of her heavy smoking history there is a possibility of chronic obstructive pulmonary disease. I do not believe she has had formal pulmonary function testing. (3) Vomiting Qualifiers: Vomiting type: unspecified Vomiting Intractability: intractable Nausea presence: with nausea Qualified Code(s): R11.2 - Nausea with vomiting, unspecified Is this a current diagnosis for this admission?: Yes Plan: The patient has history of uncontrolled diabetes. There is a strong possibility that this could be gastroparesis. She has also had multiple abdominal surgeries making adhesions or consideration. Other than a fatty liver there were no significant abnormalities on the CT scan of her abdomen. Her lipase and liver function studies were normal. We will hydrate and have as needed antiemetics available. (4) Chronic pain disorder Is this a current diagnosis for this admission?: Yes Plan: With the multiple spinal surgeries the patient utilizes oxycodone 10 mg every 6 hours as needed and she takes Valium 10 mg at night to help with spasm. We will continue her current regimen as is. (5) Tobacco abuse Is this a current diagnosis for this admission?: Yes Plan: Despite her asthma and diabetes the patient continues to smoke. Prior to the proceeding month she reports 2 packs/day since she was 11 years old. I told her she will not be allowed to smoke in the hospital. I have made a nicotine patch available. I pointed out that the combination of smoking and diabetes, especially considering her family is history of coronary artery disease and stroke, is severely hazardous to her health. - Time Time Spent: 50 to 70 Minutes Smoking Cessation Education: 3 to 10 minutes Medications reviewed and adjusted accordingly: Yes Anticipated discharge: Home Within: within 48 hours - Inpatient Certification Based on my medical assessment, after consideration of the patient's comorbidities, presenting symptoms, or acuity I expect that the services needed warrant INPATIENT care.: Yes I certify that my determination is in accordance with my understanding of Medicare's requirements for reasonable and necessary INPATIENT services [42 CFR 412.3e].: Yes Medical Necessity: Failure to Improve With Outpatient Therapy, Need Close Monitoring Due to Risk of Patient Decompensation, Need For IV Fluids, Need for Nebulizer Therapy and Monitoring of Response, Need for Pain Control, Risk of Complication if Not Cared For in Hospital
[2018-01-16] MEDS: ALBUTEROL SULFATE 0.083% NEB 2.5 MG/3 ML AMPUL NEB SCH (20:50)
[2018-01-16] MEDS: FLUTICASONE/SALMETEROL DISKUS 250-50 MCG/DOSE IH SCH (22:28)
[2018-01-16] MEDS: ATORVASTATIN CALCIUM 20 MG TABLET PO SCH (22:33)
[2018-01-16] MEDS: DIAZEPAM 5 MG TABLET PO SCH (22:33)
[2018-01-16] MEDS: ENOXAPARIN SODIUM INJ 40 MG/0.4 ML DISP.SYRIN SUBCUT SCH (22:33)
[2018-01-16] MEDS: FAMOTIDINE 20 MG TABLET PO SCH (22:33)
[2018-01-16] MEDS: NORMAL SALINE 1000 ML 1,000 ML IV PRN (22:33)
[2018-01-16] MEDS: ONDANSETRON HCL INJ/PF 4 MG/2 ML SDV IV PRN (22:34)
[2018-01-16] MEDS: INSULIN LISPRO 100 UNIT/ML 3 ML VIAL SUBCUT PRN (22:52)
[2018-01-16] MEDS ORDERED: INSULIN REG, HUMAN 100 UNIT/ML 3 ML VIAL (PYX) SUBCUT ONE (23:15)
[2018-01-16] MEDS: METOCLOPRAMIDE HCL INJ/PF 10 MG/2 ML SDV IV SCH (23:45)
[2018-01-16 23:55] LABS: CREATINE KINASE MB < 0.22 ng/mL (<4.55); TROPONIN I < 0.012 ng/mL
[2018-01-17] MEDS: ALBUTEROL SULFATE 0.083% NEB 2.5 MG/3 ML AMPUL NEB SCH ×4 (02:24→20:15)
[2018-01-17] MEDS: OXYCODONE HCL IR 5 MG TABLET PO PRN ×4 (02:33→20:59)
[2018-01-17] MEDS: ONDANSETRON HCL INJ/PF 4 MG/2 ML SDV IV PRN ×3 (02:33→19:31)
[2018-01-17 05:42] LABS: ABSOLUTE MONOCYTES (AUTO) 0.5 10^3/uL (0.1-1.4); MEAN CORPUSCULAR HEMOGLOBIN 32.5 pg (27.0-33.4); MEAN CORPUSCULAR VOLUME 93 fl (80-97); TOTAL CELLS COUNTED % (AUTO) 100 %
[2018-01-17 05:45] LABS: HEMATOCRIT 39.5 % (36.0-47.0); LYMPHOCYTES % (AUTO) 38.2 % (13-45); PLATELET COUNT 213 10^3/uL (150-450); RED BLOOD COUNT 4.26 10^6/uL (3.72-5.28); RED CELL DISTRIBUTION WIDTH 12.8 % (11.5-14.0); SEGMENTED NEUTROPHILS % (AUTO) 50.4 % (42-78); WHITE BLOOD COUNT 7.8 10^3/uL (4.0-10.5)
[2018-01-17 05:46] LABS: ABSOLUTE EOSINOPHILS # (AUTO) 0.4 10^3/uL (0.0-0.6); ABSOLUTE NEUT (AUTO) 3.9 10^3/uL (1.7-8.2); BASOPHILS % (AUTO) 0.4 % (0-2); EOSINOPHILS % (AUTO) 4.5 % (0-6); MONOCYTES % (AUTO) 6.5 % (3-13)
[2018-01-17 05:50] LABS: HEMOGLOBIN 13.8 g/dL (12.0-15.5)
[2018-01-17 06:04] LABS: ANION GAP 8 (5-19); BLOOD UREA NITROGEN 5 mg/dL (7-20); CALCIUM 8.1 mg/dL (8.4-10.2); CARBON DIOXIDE 22 mmol/L (22-30); CHLORIDE 106 mmol/L (98-107); GLUCOSE 265 mg/dL (75-110); POTASSIUM 3.4 mmol/L (3.6-5.0); SODIUM 136.3 mmol/L (137-145)
[2018-01-17 06:11] LABS: CREATINE KINASE < 20 U/L (30-135)
[2018-01-17 06:15] LABS: CREATINE KINASE MB < 0.22 ng/mL (<4.55); TROPONIN I < 0.012 ng/mL
[2018-01-17] MEDS: METOCLOPRAMIDE HCL INJ/PF 10 MG/2 ML SDV IV SCH ×3 (06:57→17:00)
[2018-01-17] MEDS: INSULIN LISPRO 100 UNIT/ML 3 ML VIAL SUBCUT PRN ×4 (08:22→21:06)
[2018-01-17] MEDS: NORMAL SALINE 1000 ML 1,000 ML IV PRN (08:47)
[2018-01-17] MEDS: ENOXAPARIN SODIUM INJ 40 MG/0.4 ML DISP.SYRIN SUBCUT SCH (09:38)
[2018-01-17] MEDS: LISINOPRIL 5 MG TABLET PO SCH (09:38)
[2018-01-17] MEDS: FAMOTIDINE 20 MG TABLET PO SCH ×2 (09:38→20:59)
[2018-01-17 12:47] LABS: CREATINE KINASE MB 0.25 ng/mL (<4.55)
[2018-01-17 12:51] LABS: TROPONIN I < 0.012 ng/mL
[2018-01-17] MEDS: FLUTICASONE/SALMETEROL DISKUS 250-50 MCG/DOSE IH SCH ×2 (13:08→21:07)
--- NOTE | 2018-01-17 14:30 | EKG REPORT ---
SEVERITY:- OTHERWISE NORMAL ECG - SINUS TACHYCARDIA : Confirmed by: Ioana Hale 17-Jan-2018 14:28:48
--- NOTE | 2018-01-17 18:58 | PDOC PROGRESS REPORT ---
Subjective Progress Note for:: 01/17/18 Subjective:: Doing better, breathing better. Complains of neck pain, which is chronic. No fever or chills. Still with cough but dry and improved. No chest pain no palpitations. Nausea improved, no more vomiting. Reason For Visit: ACUTE EXACERBATION ASTHMA Physical Exam Vital Signs: Temp Pulse Resp BP Pulse Ox 97.6 F 98 17 114/67 99 01/17/18 16:11 01/17/18 16:11 01/17/18 16:11 01/17/18 16:11 01/17/18 16:11 Intake & Output 01/16/18 01/17/18 01/18/18 06:59 06:59 06:59 Intake Total 2674 1577 Balance 2674 1577 Weight 66.6 kg GENERAL: Well-developed, no acute distress HEENT: Normocephalic/atraumatic NECK supple, no JVD CARDIOVASCULAR: RRR, normal S1-S2 LUNGS: Few bilateral expiratory wheezing but good air movement ABDOMEN: Soft, NT, NL bowel sounds EXTREMITIES: No edema, clubbing, cyanosis NEUROLOGICAL: Alert, oriented x 3, nonfocal Results Laboratory Results: 01/17/18 05:10 01/17/18 05:10 01/17/18 01/17/18 05:10 05:10 WBC 7.8 RBC 4.26 Hgb 13.8 D Hct 39.5 MCV 93 MCH 32.5 MCHC 35.0 RDW 12.8 Plt Count 213 Seg Neutrophils % 50.4 Lymphocytes % 38.2 Monocytes % 6.5 Eosinophils % 4.5 Basophils % 0.4 Absolute Neutrophils 3.9 Absolute Lymphocytes 3.0 Absolute Monocytes 0.5 Absolute Eosinophils 0.4 Absolute Basophils 0.0 Sodium 136.3 L Potassium 3.4 L Chloride 106 Carbon Dioxide 22 Anion Gap 8 BUN 5 L Creatinine 0.44 L Est GFR ( Amer) > 60 Est GFR (Non-Af Amer) > 60 Glucose 265 H Calcium 8.1 L Magnesium 1.8 01/16/18 01/16/18 01/17/18 23:10 23:10 05:10 Creatine Kinase 21 L < 20 L CK-MB (CK-2) < 0.22 Troponin I < 0.012 01/17/18 01/17/18 01/17/18 05:10 11:50 11:50 Creatine Kinase < 20 L CK-MB (CK-2) < 0.22 0.25 Troponin I < 0.012 < 0.012 Impressions: Chest X-Ray 01/16/18 12:06 IMPRESSION: NO ACUTE RADIOGRAPHIC FINDING IN THE CHEST. Abdomen/Pelvis CT 01/16/18 14:56 IMPRESSION: NO SIGNIFICANT OR ACUTE FINDING IN THE ABDOMEN OR PELVIS ON CT SCAN WITH IV CONTRAST. Assessment & Plan - Diagnosis (1) Asthma Qualifiers: Asthma severity: mild Asthma persistence: persistent Asthma complication type: with acute exacerbation Qualified Code(s): J45.31 - Mild persistent asthma with (acute) exacerbation Is this a current diagnosis for this admission?: Yes (2) Chronic pain disorder Is this a current diagnosis for this admission?: Yes (3) Diabetes mellitus type 2 in nonobese Is this a current diagnosis for this admission?: Yes (4) Tobacco abuse Is this a current diagnosis for this admission?: Yes (5) Vomiting Qualifiers: Vomiting type: unspecified Vomiting Intractability: intractable Nausea presence: with nausea Qualified Code(s): R11.2 - Nausea with vomiting, unspecified Is this a current diagnosis for this admission?: Yes - Plan Summary Plan Summary: We will treat with prednisone 20 mg p.o. twice daily continue nebulizers. Smoking cessation counseling. Continue pain management.
[2018-01-17] MEDS ORDERED: POTASSIUM CHLORIDE 10 MEQ CAPSULE.ER PO ONE (19:04)
[2018-01-17] MEDS: ATORVASTATIN CALCIUM 20 MG TABLET PO SCH (20:59)
[2018-01-17] MEDS: DIAZEPAM 5 MG TABLET PO SCH (20:59)
[2018-01-17] MEDS: NICOTINE 21 MG/24 HR PATCH.TD24 TD PRN (20:59)
[2018-01-18] MEDS: METOCLOPRAMIDE HCL INJ/PF 10 MG/2 ML SDV IV SCH ×5 (00:12→23:20)
[2018-01-18] MEDS: ALBUTEROL SULFATE 0.083% NEB 2.5 MG/3 ML AMPUL NEB SCH ×4 (02:34→20:27)
[2018-01-18] MEDS: OXYCODONE HCL IR 5 MG TABLET PO PRN ×4 (03:02→21:59)
[2018-01-18 04:59] LABS: ABSOLUTE EOSINOPHILS # (AUTO) 0.2 10^3/uL (0.0-0.6); ABSOLUTE LYMPHOCYTES (AUTO) 2.2 10^3/uL (0.5-4.7); ABSOLUTE MONOCYTES (AUTO) 0.4 10^3/uL (0.1-1.4); ABSOLUTE NEUT (AUTO) 3.3 10^3/uL (1.7-8.2); BASOPHILS % (AUTO) 0.5 % (0-2); EOSINOPHILS % (AUTO) 3.5 % (0-6); HEMATOCRIT 37.8 % (36.0-47.0); HEMOGLOBIN 13.3 g/dL (12.0-15.5); MEAN CORPUSCULAR HEMOGLOBIN 32.6 pg (27.0-33.4); MEAN CORPUSCULAR HGB CONC 35.3 g/dL (32.0-36.0); MEAN CORPUSCULAR VOLUME 93 fl (80-97); MONOCYTES % (AUTO) 7.2 % (3-13); PLATELET COUNT 191 10^3/uL (150-450); RED BLOOD COUNT 4.08 10^6/uL (3.72-5.28); RED CELL DISTRIBUTION WIDTH 12.9 % (11.5-14.0); SEGMENTED NEUTROPHILS % (AUTO) 52.8 % (42-78); TOTAL CELLS COUNTED % (AUTO) 100 %; WHITE BLOOD COUNT 6.2 10^3/uL (4.0-10.5)
[2018-01-18 05:48] LABS: ANION GAP 10 (5-19); BLOOD UREA NITROGEN 5 mg/dL (7-20); CALCIUM 8.6 mg/dL (8.4-10.2); CARBON DIOXIDE 22 mmol/L (22-30); CHLORIDE 106 mmol/L (98-107); GLUCOSE 277 mg/dL (75-110); POTASSIUM 4.1 mmol/L (3.6-5.0); SODIUM 137.8 mmol/L (137-145)
[2018-01-18] MEDS: INSULIN LISPRO 100 UNIT/ML 3 ML VIAL SUBCUT PRN ×4 (07:50→21:59)
[2018-01-18] MEDS: PREDNISONE 20 MG TABLET PO SCH (09:47)
[2018-01-18] MEDS: LISINOPRIL 5 MG TABLET PO SCH (09:47)
[2018-01-18] MEDS: FLUTICASONE/SALMETEROL DISKUS 250-50 MCG/DOSE IH SCH ×2 (09:47→21:59)
[2018-01-18] MEDS: ENOXAPARIN SODIUM INJ 40 MG/0.4 ML DISP.SYRIN SUBCUT SCH (09:47)
[2018-01-18] MEDS: FAMOTIDINE 20 MG TABLET PO SCH ×2 (09:47→22:01)
[2018-01-18] MEDS: ONDANSETRON HCL INJ/PF 4 MG/2 ML SDV IV PRN ×2 (11:47→17:28)
--- NOTE | 2018-01-18 13:49 | PDOC PROGRESS REPORT ---
Subjective Progress Note for:: 01/18/18 Subjective:: Doing better, breathing better but still not baseline. Still with neck pain, which is chronic, but current medication regimen has been. No fever or chills. Still with dry cough, mouth was. No chest pain no palpitations. Nausea improved, no more vomiting. Reason For Visit: ACUTE EXACERBATION ASTHMA Physical Exam Vital Signs: Temp Pulse Resp BP Pulse Ox 98.2 F 106 H 12 116/67 100 01/18/18 08:28 01/18/18 08:28 01/18/18 08:28 01/18/18 08:28 01/18/18 08:28 Intake & Output 01/17/18 01/18/18 01/19/18 06:59 06:59 06:59 Intake Total 2674 3209 Balance 2674 3209 Weight 66.6 kg 69.5 kg GENERAL: Well-developed, well-nourished, no acute distress HEENT: Normocephalic/atraumatic NECK supple, no JVD CARDIOVASCULAR: RRR, normal S1-S2 LUNGS: Few bilateral expiratory wheezing but good air movement ABDOMEN: Soft, NT, NL bowel sounds EXTREMITIES: No edema, clubbing, cyanosis NEUROLOGICAL: Alert, oriented x 3, nonfocal Results Laboratory Results: 01/18/18 04:27 01/18/18 04:27 01/18/18 01/18/18 04:27 04:27 WBC 6.2 RBC 4.08 Hgb 13.3 Hct 37.8 MCV 93 MCH 32.6 MCHC 35.3 RDW 12.9 Plt Count 191 Seg Neutrophils % 52.8 Lymphocytes % 36.0 Monocytes % 7.2 Eosinophils % 3.5 Basophils % 0.5 Absolute Neutrophils 3.3 Absolute Lymphocytes 2.2 Absolute Monocytes 0.4 Absolute Eosinophils 0.2 Absolute Basophils 0.0 Sodium 137.8 Potassium 4.1 Chloride 106 Carbon Dioxide 22 Anion Gap 10 BUN 5 L Creatinine 0.45 L Est GFR ( Amer) > 60 Est GFR (Non-Af Amer) > 60 Glucose 277 H Calcium 8.6 01/16/18 01/16/18 01/17/18 23:10 23:10 05:10 Creatine Kinase 21 L < 20 L CK-MB (CK-2) < 0.22 Troponin I < 0.012 01/17/18 01/17/18 01/17/18 05:10 11:50 11:50 Creatine Kinase < 20 L CK-MB (CK-2) < 0.22 0.25 Troponin I < 0.012 < 0.012 Impressions: Chest X-Ray 01/16/18 12:06 IMPRESSION: NO ACUTE RADIOGRAPHIC FINDING IN THE CHEST. Abdomen/Pelvis CT 01/16/18 14:56 IMPRESSION: NO SIGNIFICANT OR ACUTE FINDING IN THE ABDOMEN OR PELVIS ON CT SCAN WITH IV CONTRAST. Assessment & Plan - Diagnosis (1) Asthma Qualifiers: Asthma severity: mild Asthma persistence: persistent Asthma complication type: with acute exacerbation Qualified Code(s): J45.31 - Mild persistent asthma with (acute) exacerbation Is this a current diagnosis for this admission?: Yes (2) Chronic pain disorder Is this a current diagnosis for this admission?: Yes (3) Diabetes mellitus type 2 in nonobese Is this a current diagnosis for this admission?: Yes (4) Tobacco abuse Is this a current diagnosis for this admission?: Yes (5) Vomiting Qualifiers: Vomiting type: unspecified Vomiting Intractability: intractable Nausea presence: with nausea Qualified Code(s): R11.2 - Nausea with vomiting, unspecified Is this a current diagnosis for this admission?: Yes - Plan Summary Plan Summary: Prednisone 40 mg p.o. daily, continue nebulizers. Continued smoking cessation counseling. Continue pain management. Diabetic with poorly controlled, hemoglobin A1c is 13.9. Start metformin 500 mg twice daily, glipizide ER 5 mg daily, restart home Januvia, continue sliding scale insulin coverage. Dietary counseling.
[2018-01-18] MEDS: GLIPIZIDE XL 5 MG TAB.ER.24 PO SCH (15:20)
[2018-01-18] MEDS: SITAGLIPTIN PHOSPHATE 50 MG TABLET PO SCH (15:21)
[2018-01-18] MEDS: METFORMIN HCL 500 MG TABLET PO SCH (15:21)
[2018-01-18] MEDS: DIAZEPAM 5 MG TABLET PO SCH (22:00)
[2018-01-18] MEDS: ATORVASTATIN CALCIUM 20 MG TABLET PO SCH (22:01)
[2018-01-19] MEDS: ALBUTEROL SULFATE 0.083% NEB 2.5 MG/3 ML AMPUL NEB SCH ×3 (02:32→13:10)
[2018-01-19] MEDS: OXYCODONE HCL IR 5 MG TABLET PO PRN ×3 (04:26→16:22)
[2018-01-19] MEDS: METOCLOPRAMIDE HCL INJ/PF 10 MG/2 ML SDV IV SCH ×2 (05:23→16:24)
[2018-01-19] MEDS: LISINOPRIL 5 MG TABLET PO SCH (10:05)
[2018-01-19] MEDS: FAMOTIDINE 20 MG TABLET PO SCH (10:05)
[2018-01-19] MEDS: PREDNISONE 20 MG TABLET PO SCH (10:05)
[2018-01-19] MEDS: FLUTICASONE/SALMETEROL DISKUS 250-50 MCG/DOSE IH SCH (10:06)
[2018-01-19] MEDS: METFORMIN HCL 500 MG TABLET PO SCH (10:06)
[2018-01-19] MEDS: INSULIN LISPRO 100 UNIT/ML 3 ML VIAL SUBCUT PRN (10:07)
[2018-01-19] MEDS: SITAGLIPTIN PHOSPHATE 50 MG TABLET PO SCH (10:08)
[2018-01-19] MEDS: GLIPIZIDE XL 5 MG TAB.ER.24 PO SCH (10:08)
[2018-01-19] MEDS: ONDANSETRON HCL INJ/PF 4 MG/2 ML SDV IV PRN (10:11)
[2018-01-19] MEDS: ENOXAPARIN SODIUM INJ 40 MG/0.4 ML DISP.SYRIN SUBCUT SCH (10:21)
[2018-01-19] MEDS: NICOTINE 21 MG/24 HR PATCH.TD24 TD PRN (10:30)
[2018-01-19 13:48] VITALS: BP 98/58
--- NOTE | 2018-01-26 13:24 | PDOC DISCHARGE SUMMARY ---
General - Admit/Disc Date/PCP Admission Date/Primary Care Provider: 01/16/18 16:41 Discharge Date: 01/19/18 - Discharge Diagnosis (1) Asthma Is this a current diagnosis for this admission?: Yes (2) Chronic pain disorder Is this a current diagnosis for this admission?: Yes (3) Diabetes mellitus type 2 in nonobese Is this a current diagnosis for this admission?: Yes (4) Tobacco abuse Is this a current diagnosis for this admission?: Yes (5) Vomiting Is this a current diagnosis for this admission?: Yes - Additional Information Resuscitation Status: Full Code Discharge Diet: Diabetic Discharge Activity: Activity As Tolerated Prescriptions: Glipizide [Glucotrol Xl 5 mg Tab.er] 5 mg PO QAM 30 Days #30 tab.er.24 Metformin HCl [Glucophage 500 mg Tablet] 500 mg PO BIDACBS 30 Days #60 tablet Prednisone [Deltasone 20 mg Tablet] 40 mg PO DAILY 5 Days #5 tablet Home Medications: Albuterol Sulfate [Proair HFA Inhalation Aerosol 8.5 gm MDI] 2 puff IH Q4H PRN # 1 mdi 07/02/14 Diazepam [Valium] 10 mg PO QHS 01/16/18 Lisinopril [Prinivil 5 mg Tablet] 5 mg PO DAILY 01/16/18 Oxycodone HCl [Oxycodone HCl 10 MG Tablet] 10 mg PO Q6HP PRN 01/16/18 Rosuvastatin Calcium [Crestor 10 mg Tablet] 10 mg PO DAILY 01/16/18 Sitagliptin Phosphate [Januvia] 100 mg PO DAILY 01/16/18 Acetaminophen [Tylenol 325 mg Tablet] 650 mg PO Q4HP PRN tablet 01/19/18 Glipizide [Glucotrol Xl 5 mg Tab.er] 5 mg PO QAM 30 Days #30 tab.er.24 01/19/18 Metformin HCl [Glucophage 500 mg Tablet] 500 mg PO BIDACBS 30 Days #60 tablet Prednisone [Deltasone 20 mg Tablet] 40 mg PO DAILY 5 Days #5 tablet 01/19/18 History of Present Illness History of Present Illness: LLOYD DOMINGO is a 53 year old female Hospital Course Hospital Course: Patient presented to the ED and was admitted admitted to the hospitalist service as in HPI below: "LLOYD DOMINGO is a 53 year old female with a history of asthma and diabetes. Unfortunately she continues to smoke and does not follow a diabetic diet. Approximately 1 month ago she began noticing increasing shortness of breath. This has worsened over the last 4 weeks. In addition she has been having significant frequency and weight loss. She also reports discomfort on to the sternum with deep breathing. She denies any fever, chills or productive cough. She does have a dry cough. She has had multiple neck and back surgeries and is a chronic pain patient. The cough and difficulty breathing worsen her back pain. She has also undergone multiple surgeries for endometriosis and has fairly consistent abdominal pain. Over the last 7-10 days her appetite has decreased and nausea has increased with fairly regular vomiting after meals. She presents feeling markedly unwell, with difficulty breathing, exacerbation of her spine and abdominal pain." Patient was treated with nebulizers, prednisone, and her pain managed. Patient improved with this regimen. She was treated with nicotine patch, but patient kept going outside to smoke. She was counseled about smoking cessation. She stated she'll try to quit. She is doing better, and is being discharged home in improved condition. She is to follow with her primary care physician within 1 week. Physical Exam Vital Signs: Temp Pulse Resp BP Pulse Ox 97.6 F 96 20 98/58 L 97 01/19/18 13:44 01/19/18 13:44 01/19/18 13:44 01/19/18 13:44 01/19/18 13:44 Intake & Output 01/18/18 01/19/18 01/20/18 06:59 06:59 06:59 Intake Total 3209 1994 Balance 3209 1994 Weight 69.5 kg 67.3 kg GENERAL: Well-developed, well-nourished, no acute distress HEENT: Normocephalic/atraumatic NECK supple, no JVD CARDIOVASCULAR: RRR, normal S1-S2 LUNGS: Rare bilateral expiratory wheezing but good air movement ABDOMEN: Soft, NT, NL bowel sounds EXTREMITIES: No edema, clubbing, cyanosis NEUROLOGICAL: Alert, oriented x 3, nonfocal Results Laboratory Results: 01/18/18 04:27 01/18/18 04:27 01/16/18 01/16/18 01/17/18 23:10 23:10 05:10 Creatine Kinase 21 L < 20 L CK-MB (CK-2) < 0.22 Troponin I < 0.012 01/17/18 01/17/18 01/17/18 05:10 11:50 11:50 Creatine Kinase < 20 L CK-MB (CK-2) < 0.22 0.25 Troponin I < 0.012 < 0.012 Impressions: Chest X-Ray 01/16/18 12:06 IMPRESSION: NO ACUTE RADIOGRAPHIC FINDING IN THE CHEST. Abdomen/Pelvis CT 01/16/18 14:56 IMPRESSION: NO SIGNIFICANT OR ACUTE FINDING IN THE ABDOMEN OR PELVIS ON CT SCAN WITH IV CONTRAST. Qualifiers - * PATIENT BEING DISCHARGED WITH ANY OF THE FOLLOWING DIAGNOSIS: No Plan Time Spent: Greater than 30 Minutes
== END 2018-01-19 16:15 | disposition home or self-care (01) | DRG 203 ==
LOC: ER 11:24 → EH 16:41 → 4N 18:52
PROVIDERS: ADMIT Internal Medicine; ATTEND Internal Medicine
DX: J45.31 Mild persistent asthma with (acute) exacerbation (principal); E11.65 Type 2 diabetes mellitus with hyperglycemia; I10 Essential (primary) hypertension; G89.4 Chronic pain syndrome; E78.5 Hyperlipidemia, unspecified; M19.90 Unspecified osteoarthritis, unspecified site; N80.9 Endometriosis, unspecified; M54.2 Cervicalgia; F17.210 Nicotine dependence, cigarettes, uncomplicated; Z90.49 Acquired absence of other specified parts of digestive tract; Z82.49 Family history of ischemic heart disease and other diseases of the circulatory system; Z83.3 Family history of diabetes mellitus; Z82.3 Family history of stroke; Z79.899 Other long term (current) drug therapy; Z79.84 Long term (current) use of oral hypoglycemic drugs; Z91.14 Patient's other noncompliance with medication regimen; Z91.11 Patient's noncompliance with dietary regimen; Z23 Encounter for immunization; Z79.52 Long term (current) use of systemic steroids; K75.81 Nonalcoholic steatohepatitis (NASH)
CPT/HCPCS: 36415; 71045; 74177; 80048; 80053; 82550; 82553; 82803; 82962; 83036; 83690; 83735; 83880; 84443; 84484; 85025; 85379; 90471; 90686; 93005; 93010; 94640; 96360; 96361; 99285; G0008; J1650; J1815; J2405; J2765; J3490; J7030; J7512; J7620

== ENCOUNTER 2018-04-21 15:26 | Emergency (ER) | payer MEDICARE, MEDICAID ==
[2018-04-21] MEDS ORDERED: NORMAL SALINE 1000 ML 1,000 ML IV ONE ×3 (15:53→19:37)
[2018-04-21] MEDS ORDERED: MORPHINE SULFATE 10 MG/ML INJ IV ONE (17:34)
[2018-04-21 17:42] LABS: ABSOLUTE BASOPHILS # (AUTO) 0.1 10^3/uL (0.0-0.2); ABSOLUTE EOSINOPHILS # (AUTO) 0.2 10^3/uL (0.0-0.6); ABSOLUTE LYMPHOCYTES (AUTO) 2.6 10^3/uL (0.5-4.7); ABSOLUTE MONOCYTES (AUTO) 0.7 10^3/uL (0.1-1.4); ABSOLUTE NEUT (AUTO) 7.8 10^3/uL (1.7-8.2); BASOPHILS % (AUTO) 0.9 % (0-2); HEMOGLOBIN 17.8 g/dL (12.0-15.5); LYMPHOCYTES % (AUTO) 22.7 % (13-45); MEAN CORPUSCULAR HEMOGLOBIN 32.5 pg (27.0-33.4); MEAN CORPUSCULAR HGB CONC 35.6 g/dL (32.0-36.0); MEAN CORPUSCULAR VOLUME 91 fl (80-97); MONOCYTES % (AUTO) 5.8 % (3-13); PLATELET COUNT 322 10^3/uL (150-450); RED BLOOD COUNT 5.49 10^6/uL (3.72-5.28); RED CELL DISTRIBUTION WIDTH 12.5 % (11.5-14.0); SEGMENTED NEUTROPHILS % (AUTO) 68.6 % (42-78); TOTAL CELLS COUNTED % (AUTO) 100 %; WHITE BLOOD COUNT 11.3 10^3/uL (4.0-10.5)
[2018-04-21 18:00] LABS: ALANINE AMINOTRANSFERASE 32 U/L (9-52); ALBUMIN 4.9 g/dL (3.5-5.0); ALKALINE PHOSPHATASE 94 U/L (38-126); ANION GAP 15 (5-19); ASPARTATE AMINO TRANSFERASE 32 U/L (14-36); BILIRUBIN,DIRECT 0.4 mg/dL (0.0-0.4); BILIRUBIN,TOTAL 0.9 mg/dL (0.2-1.3); BLOOD UREA NITROGEN 13 mg/dL (7-20); CALCIUM 10.1 mg/dL (8.4-10.2); CARBON DIOXIDE 24 mmol/L (22-30); CHLORIDE 101 mmol/L (98-107); GLUCOSE 343 mg/dL (75-110); LIPASE 84.3 U/L (23-300); POTASSIUM 4.8 mmol/L (3.6-5.0); SODIUM 139.5 mmol/L (137-145); TOTAL PROTEIN 7.6 g/dL (6.3-8.2)
[2018-04-21 18:24] LABS: VENOUS BLOOD BASE EXCESS -0.4 mmol/L; VENOUS BLOOD HCO3 25.6 mmol/L (20-32); VENOUS BLOOD PCO2 46.5 mmHg (35-63); VENOUS BLOOD PH 7.36 (7.30-7.42)
[2018-04-21] MEDS ORDERED: ONDANSETRON HCL INJ/PF 4 MG/2 ML SDV IV ONE (18:52)
--- NOTE | 2018-04-21 18:58 | RADIOLOGY REPORT (SQ) ---
EXAM DESCRIPTION: CT ABD/PELVIS WITH IV ONLY COMPLETED DATE/TIME: 04/21/2018 6:35 pm REASON FOR STUDY: generalized pain COMPARISON: 01/16/2018 TECHNIQUE: CT scan of the abdomen and pelvis performed using helical scanning technique with dynamic intravenous contrast injection. No oral contrast. Images reviewed with lung, soft tissue, and bone windows. Reconstructed coronal and sagittal MPR images reviewed. Delayed images for evaluation of the urinary system also acquired. All images stored on PACS. All CT scanners at this facility use dose modulation, iterative reconstruction, and/or weight based d osing when appropriate to reduce radiation dose to as low as reasonably achievable (ALARA). [facility]: Dose Right [facility]: CareDose [facility]: Dose Right [facility]: Teradose 4D [facility]: Clean Filtration Technology CONTRAST TYPE AND DOSE: contrast/concentration: Isovue 350.00 mg/ml; Total Contrast Delivered: 78.0 ml; Total Saline Delivered: 57.0 ml RENAL FUNCTION: GFR > 60. RADIATION DOSE: CT Rad equipment meets quality standard of care and radiation dose reduction techniq ues were employed. CTDIvol: 7.0 - 9.6 mGy. DLP: 881 mGy-cm.. LIMITATIONS: None. FINDINGS: LOWER CHEST: No significant findings. No nodules or infiltrates. LIVER: Normal size. No masses. No dilated ducts. SPLEEN: Normal size. No focal lesions. PANCREAS: No masses. No significant calcifications. No adjacent inflammation or peripancreatic fluid collections. Pancreatic duct not dilated. GALLBLADDER: No identified stones by CT criteria. No inflammatory changes to suggest cholecystitis. ADRENAL GLANDS: No significant masses or asymmetry. RIGHT KIDNEY AND URETER: No solid masses. No significant calcifications. No hydronephrosis or hyd roureter. LEFT KIDNEY AND URETER: No solid masses. No significant calcifications. No hydronephrosis or hydr oureter. AORTA AND VESSELS: No aneurysm. No dissection. Renal arteries, SMA, celiac without stenosis. RETROPERITONEUM: No retroperitoneal adenopathy, hemorrhage or masses. BOWEL AND PERITONEAL CAVITY: No masses or inflammatory changes. No free fluid or peritoneal masses. APPENDIX: Normal. PELVIS: No mass. No free fluid. Normal bladder. ABDOMINAL WALL: No masses. No hernias. BONES: Surgical changes. OTHER: No other significant finding. IMPRESSION: NO SIGNIFICANT OR ACUTE FINDING IN THE ABDOMEN OR PELVIS ON CT SCAN WITH IV CONTRAST. TECHNICAL DOCUMENTATION: JOB ID: [id number] Quality ID # [id number]: Final reports with documentation of one or more dose reduction techniques (e.g., Au tomated exposure control, adjustment of the mA and/or kV according to patient size, use of iterative reconstruction technique) 2010 [employer]- All Rights Reserved Reading location - IP/workstation name: [email or web address]
--- NOTE | 2018-04-21 19:00 | ER Document Report ---
Addendum entered and electronically signed by JENELLE ANDRADE PA 04/21/18 20:13: Course - Re-evaluation Re-evalutation: 04/21/18 20:10 Patient refusing to get back on the monitor, refusing to perform p.o. trial or additional IV fluids, heart rate at 104. Negative workup to this point. Requesting to leave. Plan had been to give her IV fluids, p.o. trial, and reassess, however since patient is not cooperating with this and she is requesting to leave but her workup has been negative, she is ambulating around, and her tachycardia resolved the patient will be discharged. - Vital Signs Vital signs: Temp Pulse Resp BP Pulse Ox 16 139/98 H 96 04/21/18 19:01 04/21/18 19:00 04/21/18 19:01 - Laboratory Result Diagrams: 04/21/18 17:15 04/21/18 17:15 Laboratory results interpreted by me: 04/21/18 04/21/18 04/21/18 17:15 17:15 19:36 WBC 11.3 H RBC 5.49 H Hgb 17.8 H Hct 50.0 H Glucose 343 H POC Glucose 225 H Original Note: ED General - General Chief Complaint: Abdominal Pain >50 Stated Complaint: ABDOMINAL PAIN Time Seen by Provider: 04/21/18 15:53 Notes: Patient is a 53-year-old female presents to the emergency department for generalized epigastric abdominal pain for the last week. Patient states she has had multiple episodes of vomiting and also diarrhea. Patient is denying blood in either her vomit or diarrhea. Patient is also denying fever. Patient states at times her epigastric pain does radiate up into her chest. Per EMS reports patient blood sugar was 436. They also documented increased urine output and increased thirst over the last week. Patient does admit to increased urine output but states she has been unable to drink due to the nausea and vomiting. Past medical history: Diabetes, hypertension, asthma, hyperlipidemia medications: Metformin, Crestor, Valium, Oxycodone, lisinopril Allergies: None Surgical history: Cholecystectomy TRAVEL OUTSIDE OF THE [place] IN LAST 30 DAYS: No - Related Data Allergies/Adverse Reactions: No Known Allergies Allergy (Verified 04/21/18 15:28) Past Medical History - General Information source: Patient - Social History Smoking Status: Current Every Day Smoker Chew tobacco use (# tins/day): No Frequency of alcohol use: None Drug Abuse: None Family History: CAD, CVA, DM, Hyperlipidemia, Hypertension Patient has suicidal ideation: No Patient has homicidal ideation: No - Past Medical History Cardiac Medical History: Reports: Hx Hypercholesterolemia, Hx Hypertension Pulmonary Medical History: Reports: Hx Asthma Neurological Medical History: Reports: Hx Migraine Endocrine Medical History: Reports: Hx Diabetes Mellitus Type 2 Renal/ Medical History: Denies: Hx End Stage Renal Disease, Hx Peritoneal Dialysis GI Medical History: Denies: Hx Cirrhosis Musculoskeletal Medical History: Reports Hx Arthritis Skin Medical History: Denies Hx Eczema, Denies Hx Psoriasis Psychiatric Medical History: Reports: Hx Depression Past Surgical History: Reports: Hx Cholecystectomy, Hx Orthopedic Surgery - The patient has had multiple cervical and thoracolumbar fusions., Hx Tubal Ligation, Other - The patient has had several exploratory surgeries for endometriosis. - Immunizations Hx Diphtheria, Pertussis, Tetanus Vaccination: Yes Review of Systems - Review of Systems Constitutional: See HPI EENT: No symptoms reported Cardiovascular: See HPI Respiratory: No symptoms reported Gastrointestinal: See HPI Genitourinary: denies: Burning, Dysuria Female Genitourinary: denies: Vaginal discharge, Vaginal odor Musculoskeletal: No symptoms reported Skin: No symptoms reported Hematologic/Lymphatic: No symptoms reported Neurological/Psychological: No symptoms reported Physical Exam - Vital signs Vitals: Resp Pulse Ox 20 92 04/21/18 15:53 04/21/18 15:53 - Notes Notes: GENERAL: Alert, interacts well. Writhing around in pain. HEAD: Normocephalic, atraumatic. EYES: Pupils equal, round, and reactive to light. Extraocular movements intact. ENT: Oral mucosa moist, tongue midline. NECK: Full range of motion. Supple. Trachea midline. LUNGS: Clear to auscultation bilaterally, no wheezes, rales, or rhonchi. No respiratory distress. HEART: Tachycardic rate and rhythm. No murmur ABDOMEN: Soft, Non-distended. Bowel sounds present in all 4 quadrants. Generalized tenderness all 4 quadrants to include epigastric region and patient states radiating up into her chest. EXTREMITIES: Moves all 4 extremities spontaneously. No edema, normal radial and dorsalis pedis pulses bilaterally. No cyanosis. BACK: no cervical, thoracic, lumbar midline tenderness. No saddle anesthesia, normal distal neurovascular exam. NEUROLOGICAL: Alert and oriented x3. Normal speech. cranial nerves II through XII grossly intact. PSYCH: Anxious. SKIN: Warm, dry, normal turgor. No rashes or lesions noted. Course - Re-evaluation Re-evalutation: Patient initially presents to the emergency department via EMS tachycardic at a rate of 120. Patient is writhing around on the bed in pain. Upon my examination she has generalized abdominal tenderness all 4 quadrants and epigast adrian region. Pain does not change when I palpate the center of her chest but she states she has pain there too. Patient was given Zofran 4 mg ODT by EMS. Patient states she no longer feels nauseated at this time. Due to patient's presentation and age CT abdomen was ordered. 04/21/18 19:04 Patient's labs show a leukocytosis of 11.3. No electrolyte abnormalities noted. Negative troponin. Patient's blood sugar was noted to be 343 2 Liters of normal saline solution were provided to the patient. Patient's blood gas was within normal limits. 04/21/18 19:43 Patient's urine shows no signs of infection. No signs of ketones. Patient does have a elevation in her specific gravity 1.028. Patient continues to remain tachycardic with a heart rate of 118. Patient CT results showed no abnormalities. Discussed this with patient at length. Discussed use of Carafate and Pepcid for potential gastritis and another liter of normal saline solution. Patient was initially administered Zofran by EMS with no further vomiting. Nurse brings to my attention that the patient states she feels nauseated again but has not vomited. Repeat dose of Zofran was administered. Patient is now denying nausea and has continued without vomiting in the emergency department. If patient's heart rate comes down with continued fluid hydration, Carafate and Pepcid will discharge home with close follow-up with primary care provider. In reviewing [facility] it is noted that the patient has multiple oxyc odone prescriptions. Last prescription was filled on 04/07/2018 for 100 5 mg oxycodone's. - Vital Signs Vital signs: Temp Pulse Resp BP Pulse Ox 16 139/98 H 96 04/21/18 19:01 04/21/18 19:00 04/21/18 19:01 - Laboratory Result Diagrams: 04/21/18 17:15 04/21/18 17:15 Laboratory results interpreted by me: 04/21/18 04/21/18 17:15 17:15 WBC 11.3 H RBC 5.49 H Hgb 17.8 H Hct 50.0 H Glucose 343 H Discharge - Discharge Clinical Impression: Epigastric pain, Vomiting and diarrhea, Dehydration Condition: Stable Disposition: HOME, SELF-CARE Instructions: Antinausea Medication ([facility]), Diarrhea, Nonspecific ([facility]), Evaluation of Upper Abdominal Pain ([facility]) Additional Instructions: As we discussed you have been seen and treated in the emergency department for your generalized nausea, vomiting, diarrhea, abdominal pain. Your labs are relatively unremarkable. Your CT scan shows no abnormalities. You have been rehydrated with medications in the emergency room. Please make sure that you take prescription medications as prescribed. Please immediately return to the emergency room for any other concerning symptoms. Prescriptions: Ondansetron [Zofran Odt 4 mg Tablet] 1 - 2 tab PO Q4H PRN #15 tab.rapdis PRN Reason: For Nausea/Vomiting
[2018-04-21 19:20] LABS: APPEARANCE,URINE CLEAR; BILIRUBIN,URINE NEGATIVE (NEGATIVE); COLOR,URINE YELLOW; GLUCOSE, URINE NEGATIVE (NEGATIVE); KETONES,URINE NEGATIVE (NEGATIVE); LEUKOCYTE ESTERASE,URINE NEGATIVE (NEGATIVE); NITRITE,URINE NEGATIVE (NEGATIVE); PROTEIN,URINE NEGATIVE (NEGATIVE); URINE SPECIFIC GRAVITY 1.028; UROBILINOGEN,URINE NEGATIVE mg/dL (<2.0)
[2018-04-21] MEDS ORDERED: SUCRALFATE SUSP 1 GM/10 ML UDCUP PO ONE (19:36)
[2018-04-21] MEDS ORDERED: FAMOTIDINE INJ/PF 20 MG/2 ML SDV IV ONE (19:36)
[2018-04-21 20:37] VITALS: BP 146/93
--- NOTE | 2018-04-22 08:06 | EKG REPORT ---
SEVERITY:- BORDERLINE ECG - SINUS TACHYCARDIA BORDERLINE T ABNORMALITIES, INFERIOR LEADS : Confirmed by: Hubert Castaneda MD 22-Apr-2018 08:05:43
== END 2018-04-21 20:37 | disposition home or self-care (01) ==
LOC: ER 15:26
DX: E86.0 Dehydration (principal); R11.10 Vomiting, unspecified; R19.7 Diarrhea, unspecified; R10.13 Epigastric pain; F17.200 Nicotine dependence, unspecified, uncomplicated; E78.00 Pure hypercholesterolemia, unspecified; I10 Essential (primary) hypertension; E11.9 Type 2 diabetes mellitus without complications; Z98.1 Arthrodesis status; Z98.51 Tubal ligation status
CPT/HCPCS: 93005; 96375; 99284; 96361; 96374; 36415; 82962; 83690; 85025; 80053; 81001; 84484; 82803; 74177; 93010; J2270; J2405; J7030

== ENCOUNTER 2018-07-06 15:43 | Emergency (ER) | payer MEDICARE, MEDICAID ==
[2018-07-06] MEDS ORDERED: NORMAL SALINE 1000 ML 1,000 ML IV ONE ×2 (16:13→16:39)
--- NOTE | 2018-07-06 16:14 | ER Document Report ---
ED General - General Stated Complaint: BLOOD SUGAR ISSUES Time Seen by Provider: 07/06/18 16:12 Primary Care Provider: FLORESITA KOTHARI MD [ACTIVE STAFF] - Follow up in 3-5 days (or your primary care. ) Notes: Patient is a 53-year-old female with history of uncontrolled diabetes on second that presents to the emergency department for chief complaint of nausea, vomiting, polyuria and polydipsia. Patient states she is been having a hard time trying to manage her diabetes, her blood sugars have been in the 500s recently she is only on metformin 500 mg twice daily, she was on other medications from her recent admission, but she is run out of those. She is been having symptoms of nausea and vomiting for the past 2 days, polyuria polydipsia, and urinary frequency. She denies having any chest pain, shortness of breath or difficulty breathing. She states is been try to see her physician, but he wants here when she is having high sugars. She has not all that compliant with a diabetic diet although she states that she tries. She was previously on insulin in the past, but has not been on it in some time. Past Medical History: Diabetes mellitus, hypertension, hyperlipidemia, chronic pain Past Surgical History: Cholecystectomy, neck surgery Social History: Admits to smoking cigarettes, denies alcohol or drug use. Family History: Reviewed and noncontributory for presenting illness Allergies: Reviewed, see documented allergy list. REVIEW OF SYSTEMS: Other than noted above, the 12 point review of systems was reviewed with the patient and were negative, all pertinent findings are included in the HPI. PHYSICAL EXAMINATION: Vital signs reviewed, nursing noted reviewed. GENERAL: Patient appears uncomfortable at this time HEAD: Atraumatic, normocephalic. EYES: Eyes appear normal, extraocular movements intact, sclera anicteric, conjunctiva are normal. ENT: nares patent, oropharynx clear without exudates. Moist mucous membranes. NECK: Normal range of motion, supple without lymphadenopathy LUNGS: Breath sounds clear to auscultation bilaterally and equal. No wheezes rales or rhonchi. HEART: Regular rate and rhythm without murmurs ABDOMEN: Soft, nontender, normoactive bowel sounds. No rebound, guarding, or r igidity. No masses appreciated. EXTREMITIES: Nontender, good range of motion, no pitting or edema. NEUROLOGICAL: No focal neurological deficits. Moves all extremities spontaneously Motor and sensory grossly intact on exam. PSYCH: Normal mood, normal affect. SKIN: Warm, Dry, normal turgor, no rashes or lesions noted on exposed skin TRAVEL OUTSIDE OF THE [place] IN LAST 30 DAYS: No - Related Data Allergies/Adverse Reactions: No Known Allergies Allergy (Verified 04/21/18 15:28) Past Medical History - Social History Smoking Status: Current Every Day Smoker Family History: CAD, CVA, DM, Hyperlipidemia, Hypertension - Past Medical History Cardiac Medical History: Reports: Hx Hypercholesterolemia, Hx Hypertension Pulmonary Medical History: Reports: Hx Asthma Neurological Medical History: Reports: Hx Migraine Endocrine Medical History: Reports: Hx Diabetes Mellitus Type 2 Renal/ Medical History: Denies: Hx End Stage Renal Disease, Hx Peritoneal Dialysis GI Medical History: Denies: Hx Cirrhosis Musculoskeletal Medical History: Reports Hx Arthritis Skin Medical History: Denies Hx Eczema, Denies Hx Psoriasis Psychiatric Medical History: Reports: Hx Depression Past Surgical History: Reports: Hx Cholecystectomy, Hx Orthopedic Surgery - The patient has had multiple cervical and thoracolumbar fusions., Hx Tubal Ligation, Other - The patient has had several exploratory surgeries for endometriosis. - Immunizations Hx Diphtheria, Pertussis, Tetanus Vaccination: Yes Physical Exam - Vital signs Vitals: Resp Pulse Ox 20 98 07/06/18 18:24 07/06/18 18:24 Course - Re-evaluation Re-evalutation: Patient seen and examined vital signs reviewed. Laboratory data and/or imaging were ordered as appropriate for the patient's presenting symptoms and complaint, with consideration of any critical or life threatening conditions that may be associated with their obtained history and exam as noted above. Patient was treated with IV fluids Results were reviewed when available and demonstrated hyperglycemia, which did improve with IV fluids, no anion gap, no acidosis. The patient was re-evaluated and was stable and improved, she was given some Toradol for some pain she was having and Zofran for the nausea which did improve this. Evaluation was most consistent with uncontrolled diabetes mellitus, with hyperglycemia, recommended increasing the patient's Metformin 2000 mg twice daily, and adding a low-dose of glipizide at 2.5 mg daily, she is advised to follow-up with her primary care physician. She was warned about the signs of hypoglycemia when taking glipizide. Results were discussed with the patient at this point, after careful consideration I feel that that patient can be discharged from the emergency department, the patient was educated treatments and reasons to return to the emergency department based on their presumed diagnosis as noted above, they were advised to followup with a primary care physician in 2-3 days. Patient was agreeable to plan of care. *Note is created using voice recognition software and may contain spelling, syntax or grammatical errors. Laboratory 07/06/18 07/06/18 07/06/18 16:22 18:07 19:31 WBC RBC Hgb Hct MCV MCH MCHC RDW Plt Count Seg Neutrophils % Lymphocytes % Monocytes % Eosinophils % Basophils % Absolute Neutrophils Absolute Lymphocytes Absolute Monocytes Absolute Eosinophils Absolute Basophils Carbonic Acid Cancelled HCO3/H2CO3 Ratio Cancelled ABG pH Cancelled ABG pCO2 Cancelled ABG pO2 Cancelled ABG HCO3 Cancelled ABG Total CO2 Cancelled ABG O2 Saturation Cancelled ABG Base Excess Cancelled FiO2 Cancelled Sodium Potassium Chloride Carbon Dioxide Anion Gap BUN Creatinine Est GFR ( Amer) Est GFR (Non-Af Amer) Glucose POC Glucose 382 H 371 H Calcium Total Bilirubin Direct Bilirubin Neonat Total Bilirubin Neonat Direct Bilirubin Neonat Indirect Bili AST ALT Alkaline Phosphatase Total Protein Albumin 07/06/18 07/06/18 20:09 20:09 WBC 6.9 RBC 4.53 Hgb 14.7 Hct 41.5 MCV 92 MCH 32.4 MCHC 35.4 RDW 12.5 Plt Count 217 Seg Neutrophils % 52.4 Lymphocytes % 30.8 Monocytes % 6.4 Eosinophils % 9.5 H Basophils % 0.9 Absolute Neutrophils 3.6 Absolute Lymphocytes 2.1 Absolute Monocytes 0.4 Absolute Eosinophils 0.7 H Absolute Basophils 0.1 Carbonic Acid HCO3/H2CO3 Ratio ABG pH ABG pCO2 ABG pO2 ABG HCO3 ABG Total CO2 ABG O2 Saturation ABG Base Excess FiO2 Sodium 134.1 L Potassium 4.2 Chloride 105 Carbon Dioxide 24 Anion Gap 5 BUN 4 L Creatinine 0.44 L Est GFR ( Amer) > 60 Est GFR (Non-Af Amer) > 60 Glucose 288 H POC Glucose Calcium 8.7 Total Bilirubin 0.4 Direct Bilirubin 0.3 Neonat Total Bilirubin Not Reportable Neonat Direct Bilirubin Not Reportable Neonat Indirect Bili Not Reportable AST 14 ALT 25 Alkaline Phosphatase 92 Total Protein 5.5 L Albumin 3.2 L - Vital Signs Vital signs: Temp Pulse Resp BP Pulse Ox 97.6 F 94 18 130/88 H 96 07/06/18 21:23 07/06/18 21:23 07/06/18 21:23 07/06/18 21:23 07/06/18 21:23 - Laboratory Result Diagrams: 07/06/18 20:09 07/06/18 20:09 Laboratory results interpreted by me: 07/06/18 07/06/18 07/06/18 16:22 18:07 20:09 Eosinophils % 9.5 H Absolute Eosinophils 0.7 H Sodium BUN Creatinine Glucose POC Glucose 382 H 371 H Total Protein Albumin 07/06/18 20:09 Eosinophils % Absolute Eosinophils Sodium 134.1 L BUN 4 L Creatinine 0.44 L Glucose 288 H POC Glucose Total Protein 5.5 L Albumin 3.2 L Discharge - Discharge Clinical Impression: Hyperglycemia, Diabetes mellitus type 2 in nonobese Condition: Stable Disposition: HOME, SELF-CARE Instructions: Hyperglycemia ([facility]) Additional Instructions: Please start taking the prescribed metformin 1000 mg twice daily, instead of the 500 mg twice daily, and start taking the glipizide 2.5 mg daily, this can cause low blood sugar so be cautious and eat throughout the day, avoid high carb foods such as starches, potatoes, pastas, and breads Prescriptions: RX: Glipizide [Glipizide Xl] 2.5 mg PO DAILY #15 tab.er.24 RX: Metformin HCl 1,000 mg PO BID #30 tab Referrals: FLORESITA KOTHARI MD [ACTIVE STAFF] - Follow up in 3-5 days (or your primary care. )
[2018-07-06] MEDS ORDERED: ONDANSETRON HCL INJ/PF 4 MG/2 ML SDV IV ONE (16:33)
[2018-07-06] MEDS ORDERED: KETOROLAC TROMETHAMINE INJ/PF 30 MG/1 ML SDV IV ONE (18:56)
[2018-07-06 20:24] LABS: ABSOLUTE BASOPHILS # (AUTO) 0.1 10^3/uL (0.0-0.2); ABSOLUTE EOSINOPHILS # (AUTO) 0.7 10^3/uL (0.0-0.6); ABSOLUTE LYMPHOCYTES (AUTO) 2.1 10^3/uL (0.5-4.7); ABSOLUTE MONOCYTES (AUTO) 0.4 10^3/uL (0.1-1.4); ABSOLUTE NEUT (AUTO) 3.6 10^3/uL (1.7-8.2); BASOPHILS % (AUTO) 0.9 % (0-2); EOSINOPHILS % (AUTO) 9.5 % (0-6); HEMATOCRIT 41.5 % (36.0-47.0); HEMOGLOBIN 14.7 g/dL (12.0-15.5); LYMPHOCYTES % (AUTO) 30.8 % (13-45); MEAN CORPUSCULAR HEMOGLOBIN 32.4 pg (27.0-33.4); MEAN CORPUSCULAR HGB CONC 35.4 g/dL (32.0-36.0); MEAN CORPUSCULAR VOLUME 92 fl (80-97); MONOCYTES % (AUTO) 6.4 % (3-13); PLATELET COUNT 217 10^3/uL (150-450); RED BLOOD COUNT 4.53 10^6/uL (3.72-5.28); RED CELL DISTRIBUTION WIDTH 12.5 % (11.5-14.0); SEGMENTED NEUTROPHILS % (AUTO) 52.4 % (42-78); TOTAL CELLS COUNTED % (AUTO) 100 %; WHITE BLOOD COUNT 6.9 10^3/uL (4.0-10.5)
[2018-07-06 20:41] LABS: ALANINE AMINOTRANSFERASE 25 U/L (9-52); ALBUMIN 3.2 g/dL (3.5-5.0); ALKALINE PHOSPHATASE 92 U/L (38-126); ANION GAP 5 (5-19); ASPARTATE AMINO TRANSFERASE 14 U/L (14-36); BILIRUBIN,DIRECT 0.3 mg/dL (0.0-0.4); BILIRUBIN,TOTAL 0.4 mg/dL (0.2-1.3); BLOOD UREA NITROGEN 4 mg/dL (7-20); CALCIUM 8.7 mg/dL (8.4-10.2); CARBON DIOXIDE 24 mmol/L (22-30); CHLORIDE 105 mmol/L (98-107); GLUCOSE 288 mg/dL (75-110); POTASSIUM 4.2 mmol/L (3.6-5.0); SODIUM 134.1 mmol/L (137-145); TOTAL PROTEIN 5.5 g/dL (6.3-8.2)
[2018-07-06 21:27] VITALS: BP 130/88
== END 2018-07-06 21:35 | disposition home or self-care (01) ==
LOC: ER 15:43
DX: E11.65 Type 2 diabetes mellitus with hyperglycemia (principal); R11.2 Nausea with vomiting, unspecified; R35.8 Other polyuria; R63.1 Polydipsia; F17.210 Nicotine dependence, cigarettes, uncomplicated; J45.909 Unspecified asthma, uncomplicated; I10 Essential (primary) hypertension
CPT/HCPCS: 99283; 96361; 96374; 96375; 36415; 82962; 85025; 80053; J1885; J2405; J7030

== ENCOUNTER 2019-08-03 11:01 | Emergency (ER) | payer MEDICARE, MEDICAID ==
[2019-08-03] MEDS ORDERED: NORMAL SALINE IV PRN (11:35)
--- NOTE | 2019-08-03 11:42 | ER Document Report ---
ED General - General Stated Complaint: FEVER Time Seen by Provider: 08/03/19 11:06 Primary Care Provider: MANOLO HINDS [NO LOCAL MD] - Follow up as needed Notes: 54-year-old woman presents to the emergency department with a history of fever body aches and pains fatigue which began on 08/01/2019. She states that she began having generalized body aches and fatigue with decreased appetite. She also notes cough, shortness of breath and decreased appetite. She has a history of hypertension, asthma, diabetes mellitus, per lipidemia, migraine headaches and positive smoker. TRAVEL OUTSIDE OF THE [place] IN LAST 30 DAYS: No - Related Data Allergies/Adverse Reactions: No Known Allergies Allergy (Verified 04/21/18 15:28) Past Medical History - Social History Smoking Status: Current Every Day Smoker Family History: CAD, CVA, DM, Hyperlipidemia, Hypertension - Past Medical History Cardiac Medical History: Reports: Hx Hypercholesterolemia, Hx Hypertension Pulmonary Medical History: Reports: Hx Asthma Neurological Medical History: Reports: Hx Migraine Endocrine Medical History: Reports: Hx Diabetes Mellitus Type 2 Renal/ Medical History: Denies: Hx End Stage Renal Disease, Hx Peritoneal Dialysis GI Medical History: Denies: Hx Cirrhosis Musculoskeletal Medical History: Reports Hx Arthritis Skin Medical History: Denies Hx Eczema, Denies Hx Psoriasis Psychiatric Medical History: Reports: Hx Depression Past Surgical History: Reports: Hx Cholecystectomy, Hx Orthopedic Surgery - The patient has had multiple cervical and thoracolumbar fusions., Hx Tubal Ligation, Other - The patient has had several exploratory surgeries for endometriosis. - Immunizations Hx Diphtheria, Pertussis, Tetanus Vaccination: Yes Review of Systems - Review of Systems Notes: Constitutional:+ fever. HENT: Negative for sore throat. Eyes: Negative for visual changes. Cardiovascular: + Cough Respiratory: Negative for shortness of breath. Gastrointestinal: Negative for abdominal pain, vomiting or diarrhea. Genitourinary: Negative for dysuria. Musculoskeletal: Negative for back pain. Skin: Negative for rash. Neurological: Negative for headaches, weakness or numbness. 10 point ROS negative except as marked above and in HPI. Physical Exam - Vital signs Vitals: Pulse Ox 98 08/03/19 11:01 - Notes Notes: PHYSICAL EXAMINATION: Physical Exam: General: Well-nourished well-developed 54-year-old female in no acute distress HEENT: NC/AT, pupils equal round and reactive to light, MM moist,nares clear, oropharynx clear, airway patent Neck: supple, no adenopathy, no masses. Good range of motion Lungs: clear, no wheezing, no rales no rhonchi CVS: Regular rate and rhythm no murmur gallop or rub Abdomen: Soft, active, nontender, no masses, no hepatosplenomegaly Ext: No edema, clubbing or cyanosis. Neuro: Alert and responsive, moving all 4 extremities on command, cranial nerves intact, no focal findings Skin: Intact no open lesions, no rash PSYCH: Normal mood, normal affect. Course - Re-evaluation Re-evalutation: 08/03/19 15:23 Patient history of cough and fever, also complaining of body aches and pains, rapid strep and influenza testing are negative, chest x-ray is clear. Patient was tested for coronavirus and is a person of interest. Given the negative x- ray negative urine and a mildly elevated white blood cell count the patient is being discharged home as she is hemodynamically stable and not hypoxic. Patient is in agreement with this plan and understands that she will have to self isolate until she gets the results of the COVID 19 testing. - Vital Signs Vital signs: Temp Pulse Resp BP Pulse Ox 98.4 F 121 H 24 H 152/92 H 98 08/03/19 12:00 08/03/19 11:12 08/03/19 12:00 08/03/19 11:12 08/03/19 12:00 - Laboratory Result Diagrams: 08/03/19 11:39 08/03/19 11:39 Laboratory results interpreted by me: 08/03/19 08/03/19 08/03/19 11:39 11:39 11:39 WBC 11.4 H RBC 5.30 H Hgb 17.1 H Hct 48.9 H Lymph % (Auto) 12.3 L Absolute Neuts (auto) 8.9 H Seg Neutrophils % 78.3 H Sodium 132.9 L Chloride 95 L Glucose 429 H* Lactic Acid 3.3 H Urine Glucose (UA) 08/03/19 13:10 WBC RBC Hgb Hct Lymph % (Auto) Absolute Neuts (auto) Seg Neutrophils % Sodium Chloride Glucose Lactic Acid Urine Glucose (UA) 1000 H Rapid strep, influenza testing were performed today and negative results are noted. - Diagnostic Test Radiology reviewed: Image reviewed, Reports reviewed - Chest x-ray: No acute cardiopulmonary findings. - EKG Interpretation by Me Rate: Tachycardia - Tachycardia rate 115, no acute ST or T wave abnormalities noted. Discharge - Discharge Clinical Impression: Suspected 2019 novel coronavirus infection Acute bronchitis Qualifiers: Bronchitis organism: unspecified organism Qualified Code(s): J20.9 - Acute bronchitis, unspecified Condition: Good Disposition: HOME, SELF-CARE Instructions: Bronchitis ([facility]) Additional Instructions: You were seen with fever and upper respiratory symptoms.Testing for influenza and strep were negative, chest x-ray is clear. Given the pandemic and coronavirus concerns, your were made a person of interest and a swab was collected and will be sent for COVID-19 evaluation. You will need to self quarantine until you get the results. Avoid anti-inflammatory medications, you may use Tylenol for fever, aches and pains. Please return to the hospital if her symptoms are worsening or development of shortness of breath. You are being treated for a bronchitis, please take the antibiotics as prescribe d. Please remember to self isolate until you have received the results of the COVID-19 testing. HOME CARE INSTRUCTIONS & INFORMATION: Thank you for choosing us for your medical needs. We hope you're satisfied with the care you received. After you leave, you must properly care for your problem and, at the same time, observe its progress. Any condition can change. Some illnesses can change rapidly over hours or days. If your condition worsens, return to the Emergency Department or see your physician promptly. ABOUT YOUR X-RAYS AND EKG'S: If you had an EKG or X-rays taken, they have been read by the Emergency Physician. The X-rays and EKG's will also be read by a Radiologist or Comb Winder within 24 hours. If discrepancies are noted, you will be notified by telephone. Please be certain the ED has a correct telephone number & address where you can be reached. Also, realize that some fractures or abnormalities do not show up on initial X-rays. If your symptoms continue, see your physician. ABOUT YOUR LABORATORY TEST: If you had laboratory tests, the results have been reviewed by the Emergency Physician. Some test results (for example cultures) may not be available for several days. You will be contacted if any test result shows you need additional treatment. Please be certain the ED has a correct telephone number and address where you can be reached. ABOUT YOUR MEDICATIONS: You will receive instructions on how to take your medicine on the prescription label you receive. Additional information may be provided by the Pharmacy. If you have questions afterwards, call the ED for clarification or further instructions. Some prescribed medications may cause d rowsiness. Do not perform tasks such as driving a car or operating machinery without consulting your Pharmacist. If you feel you need a refill of pain medication, your condition will need re-evaluation. Please do not call for a refill of any medication. ABOUT YOUR SIGNATURE: Signature of this document acknowledges to followin. Understanding that you received emergency treatment and that you may be released before al medical problems are known or treated. Please be certain the ED has a correct phone number & address where you can be reached. 2. Acknowledgement that you will arrange for follow-up care as recommended. 3. Authorization for the Emergency Physician to provide information to your follow-up Physician in order to maximize your care. AT ANY TIME, IF YOUR SYMPTOMS CHANGE SIGNIFICANTLY OR WORSEN OR YOU DEVELOP NEW SYMPTOMS, RETURN TO THE EMERGENCY DEPARTMENT IMMEDIATELY FOR RE-EVALUATION. OUR GOAL IS TO PROVIDE EXCELLENT MEDICAL CARE! WE HOPE THAT WE HAVE MET YOUR EXPECTATIONS DURING YOUR EMERGENCY DEPARTMENT VISIT AND THAT YOU FEEL YOU HAVE RECEIVED EXCELLENT CARE! Prescriptions: Cefdinir 300 mg PO BID #10 capsule Referrals: LIZET,NO [NO LOCAL MD] - Follow up as needed
[2019-08-03] MEDS ORDERED: PIPERACILLIN/TAZOBACTAM 4.5 GM VIAL IV PRN (11:51)
[2019-08-03 12:00] LABS: ABSOLUTE BASOPHILS # (AUTO) 0.1 10^3/uL (0.0-0.2); ABSOLUTE EOSINOPHILS # (AUTO) 0.1 10^3/uL (0.0-0.6); ABSOLUTE LYMPHOCYTES (AUTO) 1.4 10^3/uL (0.5-4.7); ABSOLUTE MONOCYTES (AUTO) 0.9 10^3/uL (0.1-1.4); ABSOLUTE NEUT (AUTO) 8.9 10^3/uL (1.7-8.2); BASOPHILS % (AUTO) 0.8 % (0-2); EOSINOPHILS % (AUTO) 1.1 % (0-6); HEMATOCRIT 48.9 % (36.0-47.0); HEMOGLOBIN 17.1 g/dL (12.0-15.5); LYMPHOCYTES % (AUTO) 12.3 % (13-45); MEAN CORPUSCULAR HEMOGLOBIN 32.2 pg (27.0-33.4); MEAN CORPUSCULAR VOLUME 92 fl (80-97); MONOCYTES % (AUTO) 7.5 % (3-13); PLATELET COUNT 286 10^3/uL (150-450); RED CELL DISTRIBUTION WIDTH 12.5 % (11.5-14.0); SEGMENTED NEUTROPHILS % (AUTO) 78.3 % (42-78); TOTAL CELLS COUNTED % (AUTO) 100 %; WHITE BLOOD COUNT 11.4 10^3/uL (4.0-10.5)
[2019-08-03] MEDS ORDERED: PIPERACILLIN SODIUM/TAZOBACTAM 4.5 GM in NORMAL SALINE 100 ML IV SCH (12:00)
[2019-08-03 12:16] LABS: ALBUMIN 4.8 g/dL (3.5-5.0); ALKALINE PHOSPHATASE 108 U/L (38-126); ANION GAP 14 (5-19); ASPARTATE AMINO TRANSFERASE 22 U/L (14-36); BILIRUBIN,TOTAL 0.5 mg/dL (0.2-1.3); BLOOD UREA NITROGEN 15 mg/dL (7-20); CALCIUM 10.2 mg/dL (8.4-10.2); CARBON DIOXIDE 24 mmol/L (22-30); CHLORIDE 95 mmol/L (98-107); POTASSIUM 4.2 mmol/L (3.6-5.0); TOTAL PROTEIN 7.5 g/dL (6.3-8.2)
--- NOTE | 2019-08-03 12:20 | RADIOLOGY REPORT (SQ) ---
EXAM DESCRIPTION: CHEST SINGLE VIEW IMAGES COMPLETED DATE/TIME: 08/03/2019 12:10 pm REASON FOR STUDY: SOB COMPARISON: 01/16/2018 EXAM PARAMETERS: NUMBER OF VIEWS: One view. TECHNIQUE: Single frontal radiographic view of the chest acquired. RADIATION DOSE: NA LIMITATIONS: None. FINDINGS: LUNGS AND PLEURA: No opacities, masses or pneumothorax. No pleural effusion. MEDIASTINUM AND HILAR STRUCTURES: No masses. Contour normal. HEART AND VASCULAR STRUCTURES: Heart normal in size. Normal vasculature. BONES: No acute findings. HARDWARE: None in the chest. OTHER: No other significant finding. IMPRESSION: NO ACUTE RADIOGRAPHIC FINDING IN THE CHEST. TECHNICAL DOCUMENTATION: JOB ID: [id number] 2010 [employer]- All Rights Reserved Reading location - IP/workstation name: [email or web address]
[2019-08-03 12:26] LABS: GLUCOSE 429 mg/dL (75-110)
--- NOTE | 2019-08-03 13:08 | RADIOLOGY REPORT (SQ) ---
EXAM DESCRIPTION: FOREARM LEFT COMPLETED DATE/TIME: 08/03/2019 12:55 pm REASON FOR STUDY: Trauma, left forearm injury. The patient fell 2 weeks ago. COMPARISON: None. NUMBER OF VIEWS: Two views. TECHNIQUE: Two radiographic images acquired of the left forearm, including elbow and wrist in at [address] one projection. LIMITATIONS: None. FINDINGS: MINERALIZATION: Normal. BONES: No acute fracture. No worrisome bone lesions. SOFT TISSUES: There is soft tissue swelling dorsally. OTHER: No other significant finding. IMPRESSION: Soft tissue swelling. No underlying bony abnormality. TECHNICAL DOCUMENTATION: JOB ID: [id number] 2010 [employer]- All Rights Reserved Reading location - IP/workstation name: [email or web address]
--- NOTE | 2019-08-03 13:09 | RADIOLOGY REPORT (SQ) ---
EXAM DESCRIPTION: HAND LEFT 3 VIEWS IMAGES COMPLETED DATE/TIME: 08/03/2019 12:56 pm REASON FOR STUDY: Trauma. Left hand pain following a fall 2 weeks ago. COMPARISON: None. EXAM PARAMETERS: NUMBER OF VIEWS: Three views. TECHNIQUE: AP, lateral and oblique radiographic images acquired of the left hand. LIMITATIONS: None. FINDINGS: MINERALIZATION: Normal. BONES: No acute fracture or dislocation. No worrisome bone lesions. JOINTS: No effusions. SOFT TISSUES: No soft tissue swelling. No foreign body. OTHER: No other significant finding. IMPRESSION: NEGATIVE STUDY OF THE LEFT HAND. NO RADIOGRAPHIC EVIDENCE OF ACUTE INJURY. TECHNICAL DOCUMENTATION: JOB ID: [id number] 2010 [email or web address]- All Rights Reserved Reading location - IP/workstation name: [email or web address]
[2019-08-03] MEDS ORDERED: INSULIN REG, HUMAN 100 UNIT/ML 3 ML VIAL (PYX) IV ONE (13:24)
[2019-08-03 13:33] LABS: COLOR,URINE STRAW
[2019-08-03 13:34] LABS: ADD MANUAL MICROSCOPIC YES; APPEARANCE,URINE CLEAR; BILIRUBIN,URINE NEGATIVE (NEGATIVE); GLUCOSE, URINE 1000 mg/dL (NEGATIVE); KETONES,URINE NEGATIVE (NEGATIVE); LEUKOCYTE ESTERASE,URINE NEGATIVE (NEGATIVE); NITRITE,URINE NEGATIVE (NEGATIVE); PROTEIN,URINE NEGATIVE (NEGATIVE); RBC,URINE RARE /HPF; URINE SPECIFIC GRAVITY 1.009; UROBILINOGEN,URINE NEGATIVE mg/dL (<2.0); WBC,URINE RARE /HPF
[2019-08-03 15:48] VITALS: BP 142/86
--- NOTE | 2019-08-04 08:39 | EKG REPORT ---
SEVERITY:- BORDERLINE ECG - SINUS TACHYCARDIA BORDERLINE T ABNORMALITIES, INFERIOR LEADS : Confirmed by: Ioana Hale 04-Aug-2019 08:38:54
== END 2019-08-03 15:48 | disposition home or self-care (01) ==
LOC: ER 11:01
DX: J20.9 Acute bronchitis, unspecified (principal); R50.9 Fever, unspecified; M79.10 Myalgia, unspecified site; R53.83 Other fatigue; R63.0 Anorexia; R05 Cough; R06.02 Shortness of breath; R00.0 Tachycardia, unspecified; I10 Essential (primary) hypertension; J45.909 Unspecified asthma, uncomplicated; E78.5 Hyperlipidemia, unspecified; E11.9 Type 2 diabetes mellitus without complications; F17.200 Nicotine dependence, unspecified, uncomplicated
CPT/HCPCS: 93005; 99284; 96361; 96365; 36415; 87040; 83605; 85025; 80053; 81001; 71045; 73090; 73130; 93010; A9270; J7050; J7030; J2543; J1815

== ENCOUNTER → 2019-08-03 | Outpatient (CLI) | payer MEDICARE, MEDICAID ==
--- NOTE | 2019-08-03 11:01 | ER RDC ASSESSMENT REPORT ---
Intake - In the Last 14 days Have you traveled outside [place]?: No Have you been in close contact with someone CONFIRMED: No Worked in Healthcare?: No - Symptoms Subjective Fever(Lackey feverish): Yes --How many day(s)?: Ever since last July 28 as high as 102 Chills: Yes Muscule Aches: Yes Runny Nose: No Sore Throat: No Cough (New or worsening chronic cough): Yes Shortness of breath: Yes Nausea or Vomiting: Yes Headache: Yes Abdominal Pain: No Diarrhea(3 or more loose stools in last 24 hours): No - Do you have any of the following Chronic lung disease: Asthma or emphysema or COPD: Yes Chronic Lung Disease Comment: Has a history of asthma has taken inhalers and nebulizer x2 this morning Cystic Fibrosis: No Diabetes: Yes High Blood Pressure: Yes Cardiovascular Disease: Yes Cardiovascular Disease Comment: History of A. fib Chronic Kidney Disease: No Chronic Liver Disease: No Chronic blood disorder like Sickle Cell Disease: No Weak immune system due to disease or medication: No Neurologic condition that limits movement: No Developmental delay - Moderate to Severe: No Recent (within past 2 weeks) or current : No Morbid Obesity (>100 pounds over ideal weight): No Obesity Comment: 5 feet 2 inches weight 152 pounds - Objective Temperature: 98.4 F Pulse Rate: 118 Respiratory Rate: 22 Blood Pressure: 135/83 O2 Sat by Pulse Oximetry: 98 Objective: Given above, testing performed: If Testing Performed: Test Specimen Type Sent to General - General Information source: Patient Notes: Patient here at [facility] for COVID testing. Referred by PCP from [facility] with respiratory illness since last July 28. Fever as high as 102 muscle aches cough shortness of breath nausea vomiting and reports a bad headache. Patient has a history of asthma but also takes inhalers and has nee ded to use nebulizer twice this morning. Still short of breath. - HPI Onset: Last week - Related Data Allergies/Adverse Reactions: No Known Allergies Allergy (Verified 04/21/18 15:28) Past Medical History - Social History Smoking Status: Current Every Day Smoker - smokes one pack per day. Family History: CAD, CVA, DM, Hyperlipidemia, Hypertension - Past Medical History Cardiac Medical History: Reports: Hx Hypercholesterolemia, Hx Hypertension Pulmonary Medical History: Reports: Hx Asthma Neurological Medical History: Reports: Hx Migraine Endocrine Medical History: Reports: Hx Diabetes Mellitus Type 2 Renal/ Medical History: Denies: Hx End Stage Renal Disease, Hx Peritoneal Dialysis GI Medical History: Denies: Hx Cirrhosis Musculoskeletal Medical History: Reports Hx Arthritis Skin Medical History: Denies Hx Eczema, Denies Hx Psoriasis Psychiatric Medical History: Reports: Hx Depression Past Surgical History: Reports: Hx Cholecystectomy, Hx Orthopedic Surgery - The patient has had multiple cervical and thoracolumbar fusions., Hx Tubal Ligation, Other - The patient has had several exploratory surgeries for endometriosis. Physical Exam - General General appearance: Appears well - appears uncomfortable, Alert, Other In distress: None Notes: PHYSICAL EXAMINATION: GENERAL: Well-appearing and in no acute distress. HEAD: Atraumatic, normocephalic. EYES: sclera anicteric, conjunctiva are normal. Left eye noted with crust to eyelashes. ENT: nares patent. Moist mucous membranes. NECK: Normal range of motion, supple without lymphadenopathy LUNGS: CTAB and equal. No wheezes rales or rhonchi to right. faint expiratory w heeze noted left anterior. Diminished to left posterior chest. dry cough with deep inspiration. HEART: Regular rate and rhythm without murmurs ABDOMEN: Soft, nontender, normal bowel sounds, no guarding. EXTREMITIES: No cyanosis. NEUROLOGICAL: Normal speech. PSYCH: Normal mood, normal affect. SKIN: Warm, Dry, normal turgor, Diagnostic Results Laboratory Results: Rapid Strep and Rapid flu are negative. Pending strep culture pending COVID test results. provided instructions for COVID to include: As a person under investigation for Covid 19, the [place] department of Health and Human Services, division of public health advises you to adhere to the following guidance until your test results are reported to you. If your test result is positive, you will receive additional information from your provider and your local health department at that time. Remain at home until you are cleared by the health provider or public health authorities. Keep a log of visitors to your home, notify any visitors to your home of your isolation status. If you plan to move to a new address or leave the [facility], notify the local health department in your County. Call your doctor or seek care if you have an urgent medical need. Before seeking medical care, call ahead to get instructions from the provider before arriving at the medical office clinic or hospital. Notify them that you are being tested for the virus that causes Covid 19 so that arrangements can be made, as necessary, to prevent transmission to others in the healthcare setting. Next, notify the local health department in your county. If a medical emergency arises and you need to call 911, inform the first responders that you are being tested for the virus that causes Covid 19. Next, notify the local health department in your county. Patient Education/Counseling Counseling/Education: Patient presents with upper respiratory symptoms worrisome for possible Covid 19. Patient does not have emergency worring symptoms such as difficulty breathing, shortness of breath, chest pain, pressure, confusion or cyanosis. Patient sent to ED for further evaluation via POV with family/SO. Charge nurse notified. Patient's vital signs are stable and patient is nontoxic in appearance. Good return precautions have been discussed with patient, patient verbalized understanding and is agreeable with discharge plan of care at this time. RDC Discharge - Discharge Clinical Impression: COVID - 19 SCREENING Condition: Stable Disposition: To ED
[2019-08-03 11:02] VITALS: BP 135/83
[2019-08-03 11:50] LABS: A TYPE INFLUENZA AG NEGATIVE (NEGATIVE); B INFLUENZA AG NEGATIVE (NEGATIVE)
== END ==
LOC: RDC 10:16
PROVIDERS: ATTEND Nurse Practitioner Family
DX: Z20.828 Contact with and (suspected) exposure to other viral communicable diseases (principal)
CPT/HCPCS: 87070; 87880; 87804; U0003; G0463; 87635; 99211

== ENCOUNTER 2019-10-05 17:07 | Emergency (ER) | payer MEDICARE, MEDICAID ==
[2019-10-05] MEDS ORDERED: NORMAL SALINE 1000 ML 1,000 ML IV ONE (17:48)
[2019-10-05] MEDS ORDERED: OXYCODONE-ACETAMINOPHEN 5-325 MG TABLET PO ONE (17:52)
--- NOTE | 2019-10-05 17:52 | ER Document Report ---
ED Medical Screen (RME) - General Chief Complaint: Fall Stated Complaint: FALL Time Seen by Provider: 10/05/19 17:44 Mode of Arrival: Wheelchair Information source: Patient Notes: 54-year-old female presented to ED via EMS for dizziness large blisters and bruising and pain to multiple areas of her body. She states she did not fall. She does have bruises to both arms both legs both ankles and blisters to her back. She is a diabetic. EMS got a sugar of over 400. She states she is in a lot of pain at this time. I have greeted and performed a rapid initial assessment of this patient. A comprehensive ED assessment and evaluation of the patient, analysis of test results and completion of medical decision making process will be conducted by an additional ED providers. TRAVEL OUTSIDE OF THE [place] IN LAST 30 DAYS: No - Related Data Allergies/Adverse Reactions: No Known Allergies Allergy (Verified 10/05/19 17:42) Past Medical History - Past Medical History Cardiac Medical History: Reports: Hx Hypercholesterolemia, Hx Hypertension Pulmonary Medical History: Reports: Hx Asthma Neurological Medical History: Reports: Hx Migraine Endocrine Medical History: Reports: Hx Diabetes Mellitus Type 2 Renal/ Medical History: Denies: Hx End Stage Renal Disease, Hx Peritoneal Dialysis GI Medical History: Denies: Hx Cirrhosis Musculoskeltal Medical History: Reports Hx Arthritis Skin Medical History: Denies Hx Eczema, Denies Hx Psoriasis Psychiatric Medical History: Reports: Hx Depression Past Surgical History: Reports: Hx Cholecystectomy, Hx Orthopedic Surgery - The patient has had multiple cervical and thoracolumbar fusions., Hx Tubal Ligation, Other - The patient has had several exploratory surgeries for endometriosis. - Immunizations Hx Diphtheria, Pertussis, Tetanus Vaccination: Yes Physical Exam - Vital signs Vitals: Temp Pulse Resp BP Pulse Ox 98.0 F 131 H 20 138/102 H 95 10/05/19 17:38 10/05/19 17:38 10/05/19 17:38 10/05/19 17:38 10/05/19 17:38 Course - Vital Signs Vital signs: Temp Pulse Resp BP Pulse Ox 98.0 F 131 H 20 138/102 H 95 10/05/19 17:38 10/05/19 17:38 10/05/19 17:38 10/05/19 17:38 10/05/19 17:38
[2019-10-05 18:37] LABS: HEMATOCRIT 51.5 % (36.0-47.0); HEMOGLOBIN 17.7 g/dL (12.0-15.5); MEAN CORPUSCULAR HEMOGLOBIN 32.3 pg (27.0-33.4); MEAN CORPUSCULAR HGB CONC 34.4 g/dL (32.0-36.0); MEAN CORPUSCULAR VOLUME 94 fl (80-97); RED BLOOD COUNT 5.48 10^6/uL (3.72-5.28); RED CELL DISTRIBUTION WIDTH 13.2 % (11.5-14.0); WHITE BLOOD COUNT 23.7 10^3/uL (4.0-10.5)
[2019-10-05 18:41] LABS: VENOUS BLOOD BASE EXCESS -6.6 mmol/L; VENOUS BLOOD HCO3 20.1 mmol/L (20-32); VENOUS BLOOD PCO2 44.2 mmHg (35-63); VENOUS BLOOD PH 7.28 (7.30-7.42)
[2019-10-05 19:00] LABS: ALBUMIN 4.9 g/dL (3.5-5.0); ALKALINE PHOSPHATASE 98 U/L (38-126); ANION GAP 11 (5-19); ASPARTATE AMINO TRANSFERASE 59 U/L (14-36); BILIRUBIN,TOTAL 0.5 mg/dL (0.2-1.3); BLOOD UREA NITROGEN 19 mg/dL (7-20); CALCIUM 9.6 mg/dL (8.4-10.2); CARBON DIOXIDE 19 mmol/L (22-30); CHLORIDE 103 mmol/L (98-107); CREATINE KINASE 1539 U/L (30-135); GLUCOSE 372 mg/dL (75-110); POTASSIUM 4.8 mmol/L (3.6-5.0); TOTAL PROTEIN 7.8 g/dL (6.3-8.2)
--- NOTE | 2019-10-05 19:00 | RADIOLOGY REPORT (SQ) ---
EXAM DESCRIPTION: FEMUR LEFT IMAGES COMPLETED DATE/TIME: 10/05/2019 6:42 pm REASON FOR STUDY: Bruising pain COMPARISON: None. NUMBER OF VIEWS: Two views. TECHNIQUE: Two radiographic images acquired of the left femur to include hip and knee in at least on e projection. LIMITATIONS: None. FINDINGS: MINERALIZATION: Normal. BONES: No acute fracture. Small well corticated ossific density adjacent to the medial aspect of the junction of the femoral head - femoral neck maybe related prior remote injury. SOFT TISSUES: No obvious swelling or foreign body. OTHER: No other significant finding. IMPRESSION: 1. NEGATIVE STUDY OF THE LEFT FEMUR. TECHNICAL DOCUMENTATION: JOB ID: [id number] 2010 [email or web address]- All Rights Reserved Reading location - IP/workstation name: [email or web address]
[2019-10-05 19:01] LABS: ABSOLUTE LYMPHOCYTES# (MANUAL) 2.8 10^3/uL (0.5-4.7); ABSOLUTE MONOCYTES # (MANUAL) 1.2 10^3/uL (0.1-1.4); BAND NEUTROPHILS % (MANUAL) 1 % (3-5); BASOPHILS % (MANUAL) 0 % (0-2); EOSINOPHILS % (MANUAL) 0 % (0-6); LYMPHOCYTES % (MANUAL) 12 % (13-45); MONOCYTES % (MANUAL) 5 % (3-13); SEGMENTED NEUTROPHILS % (MAN) 82 % (42-78); TOTAL CELLS COUNTED 100
[2019-10-05 19:02] LABS: PLATELET CLUMPS PRESENT; PLATELET COMMENT ADEQUATE; RBC MORPHOLOGY COMMENT NORMO-CYTIC/CHROMIC
--- NOTE | 2019-10-05 19:02 | RADIOLOGY REPORT (SQ) ---
EXAM DESCRIPTION: ANKLE BILATERAL 3 VIEWS MIN IMAGES COMPLETED DATE/TIME: 10/05/2019 6:42 pm REASON FOR STUDY: Bruising pain COMPARISON: None. NUMBER OF VIEWS: Three views. TECHNIQUE: AP, lateral, and oblique radiographic images acquired of the right and left ankle. LIMITATIONS: None. FINDINGS: MINERALIZATION: Normal. BONES: No acute fracture or dislocation. Plantar calcaneal spurs bilaterally. JOINTS: No effusions. SOFT TISSUES: Soft tissue swelling, more so on the right. No foreign body. OTHER: No other significant finding. IMPRESSION: 1. Soft tissue swelling, more so on the right. 2. No acute osseous findings. 3. Plantar calcaneal spurs. TECHNICAL DOCUMENTATION: JOB ID: [id number] 2010 [employer]- All Rights Reserved Reading location - IP/workstation name: [email or web address]
[2019-10-05 19:03] LABS: PLATELET COUNT 276 10^3/uL (150-450)
--- NOTE | 2019-10-05 19:05 | RADIOLOGY REPORT (SQ) ---
EXAM DESCRIPTION: FOOT BILATERAL 3 VIEWS IMAGES COMPLETED DATE/TIME: 10/05/2019 6:42 pm REASON FOR STUDY: Bruising pain COMPARISON: None. NUMBER OF VIEWS: Three views. TECHNIQUE: AP, lateral and oblique radiographic images acquired of the right and left foot. LIMITATIONS: None. FINDINGS: MINERALIZATION: Normal. BONES: No acute fracture or dislocation. Plantar calcaneal spurs. JOINTS: No effusions. SOFT TISSUES: Soft tissue swelling. No foreign body. OTHER: No other significant finding. IMPRESSION: 1. No acute osseous findings. 2. Soft tissue swelling. TECHNICAL DOCUMENTATION: JOB ID: [id number] 2010 [employer]- All Rights Reserved Reading location - IP/workstation name: [email or web address]
[2019-10-05 20:39] LABS: APPEARANCE,URINE SLIGHTLY-CLOUDY; BILIRUBIN,URINE NEGATIVE (NEGATIVE); COLOR,URINE YELLOW; GLUCOSE, URINE 50 mg/dL (NEGATIVE); KETONES,URINE NEGATIVE (NEGATIVE); LEUKOCYTE ESTERASE,URINE NEGATIVE (NEGATIVE); NITRITE,URINE NEGATIVE (NEGATIVE); PROTEIN,URINE 30 mg/dL (NEGATIVE); URINE SPECIFIC GRAVITY 1.003; UROBILINOGEN,URINE NEGATIVE mg/dL (<2.0)
[2019-10-05] MEDS ORDERED: RINGERS SOLUTION,LACTATED 1,000 ML IV ONE (20:41)
[2019-10-05] MEDS ORDERED: HYDROMORPHONE HCL INJ/PF 2 MG/ML AMPULE IV ONE ×3 (20:41→22:40)
[2019-10-05] MEDS ORDERED: VANCOMYCIN HCL INJ 1000 MG VIAL IV ONE (20:58)
[2019-10-05] MEDS ORDERED: PIPERACILLIN/TAZOBACTAM 3.375 GM VIAL IV ONE (20:58)
[2019-10-05] MEDS ORDERED: ONDANSETRON HCL INJ/PF 4 MG/2 ML SDV IV ONE (21:21)
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
[2019-10-05 21:47] LABS: INTERNATIONAL RATION (INR) 1.02; PROTHROMBIN TIME 13.4 SEC (11.4-15.4)
[2019-10-05 21:48] LABS: FIBRINOGEN 341 mg/dL (209-497); PARTIAL THROMBOPLASTIN TIME 26.2 SEC (23.5-35.8)
--- NOTE | 2019-10-05 21:49 | EKG REPORT ---
SEVERITY:- BORDERLINE ECG - SINUS TACHYCARDIA PROBABLE LEFT ATRIAL ABNORMALITY : Confirmed by: Samy Dsouza MD 05-Oct-2019 21:49:16
[2019-10-05 21:50] LABS: D-DIMER 0.58 ug/mL (0.00-0.50)
--- NOTE | 2019-10-05 22:11 | RADIOLOGY REPORT (SQ) ---
XR CHEST 1 VIEW HISTORY: Cough. COMPARISON: 08/03/2019 FINDINGS: The heart size is within normal limits. There is no pulmonary vascular congestion. No consolidation, pleural effusion, or pneumothorax is seen. The bony structures are preserved. IMPRESSION: No evidence of acute cardiopulmonary disease.
[2019-10-05 22:22] VITALS: BP 152/95
[2019-10-05] MEDS ORDERED: LORAZEPAM INJ 2 MG/1 ML VIAL IV ONE (22:42)
== END 2019-10-06 | disposition short-term general hospital (02) ==
LOC: ER 17:07
DX: L51.1 Stevens-Johnson syndrome (principal); E11.9 Type 2 diabetes mellitus without complications; R53.81 Other malaise; R42 Dizziness and giddiness; R53.1 Weakness; R05 Cough; R11.2 Nausea with vomiting, unspecified; M79.671 Pain in right foot; M79.672 Pain in left foot; D72.829 Elevated white blood cell count, unspecified; R31.9 Hematuria, unspecified; R00.0 Tachycardia, unspecified; R09.89 Other specified symptoms and signs involving the circulatory and respiratory systems; R74.0 Nonspecific elevation of levels of transaminase and lactic acid dehydrogenase [LDH]; F41.9 Anxiety disorder, unspecified; R79.89 Other specified abnormal findings of blood chemistry; F17.200 Nicotine dependence, unspecified, uncomplicated; I10 Essential (primary) hypertension; J45.909 Unspecified asthma, uncomplicated; Z20.828 Contact with and (suspected) exposure to other viral communicable diseases; Z79.899 Other long term (current) drug therapy
CPT/HCPCS: 93005; 96376; 99291; 99292; 96361; 96374; 96375; 36415; 87040; 87070 ×2; 87086; 87205; 87880; 82550; 83605; 84443; 85025; 85384; 85610; 85730; 87075; 87088; 80053; 81001; 84484; 85379; 82803; 71045; 73552; 73630; 73610; 93010; U0003; A9270; J1170; J2060; J2405; J7030; J7120; J3370; J2543; C9803; 87186; 87635

== ENCOUNTER 2020-01-04 15:53 | Inpatient (IN) | payer MEDICARE, MEDICAID ==
[2020-01-04] MEDS ORDERED: RINGERS SOLUTION,LACTATED 1,000 ML IV ONE (16:36)
[2020-01-04] MEDS ORDERED: ONDANSETRON HCL INJ/PF 4 MG/2 ML SDV IV ONE (16:48)
[2020-01-04] MEDS ORDERED: HYDROMORPHONE HCL INJ/PF 2 MG/ML AMPULE IV ONE ×2 (16:48→20:26)
[2020-01-04 16:56] LABS: ABSOLUTE EOSINOPHILS # (AUTO) 0.2 10^3/uL (0.0-0.6); ABSOLUTE MONOCYTES (AUTO) 0.9 10^3/uL (0.1-1.4); ABSOLUTE NEUT (AUTO) 9.7 10^3/uL (1.7-8.2); BASOPHILS % (AUTO) 0.2 % (0-2); EOSINOPHILS % (AUTO) 1.3 % (0-6); HEMATOCRIT 51.7 % (36.0-47.0); HEMOGLOBIN 17.9 g/dL (12.0-15.5); LYMPHOCYTES % (AUTO) 26.9 % (13-45); MEAN CORPUSCULAR HEMOGLOBIN 31.3 pg (27.0-33.4); MEAN CORPUSCULAR HGB CONC 34.6 g/dL (32.0-36.0); MEAN CORPUSCULAR VOLUME 90 fl (80-97); MONOCYTES % (AUTO) 6.3 % (3-13); PLATELET COUNT 377 10^3/uL (150-450); RED BLOOD COUNT 5.72 10^6/uL (3.72-5.28); RED CELL DISTRIBUTION WIDTH 13.4 % (11.5-14.0); SEGMENTED NEUTROPHILS % (AUTO) 65.3 % (42-78); TOTAL CELLS COUNTED % (AUTO) 100 %; WHITE BLOOD COUNT 14.9 10^3/uL (4.0-10.5)
[2020-01-04 17:00] LABS: APPEARANCE,URINE CLEAR; BILIRUBIN,URINE NEGATIVE (NEGATIVE); COLOR,URINE YELLOW; GLUCOSE, URINE >=500 mg/dL (NEGATIVE); KETONES,URINE NEGATIVE (NEGATIVE); PROTEIN,URINE NEGATIVE (NEGATIVE); URINE SPECIFIC GRAVITY 1.012; UROBILINOGEN,URINE NEGATIVE mg/dL (<2.0)
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
[2020-01-04 17:07] LABS: ALKALINE PHOSPHATASE 89 U/L (38-126); ANION GAP 18 (5-19); ASPARTATE AMINO TRANSFERASE 25 U/L (14-36); BILIRUBIN,DIRECT 0.4 mg/dL (0.0-0.4); BILIRUBIN,TOTAL 1.1 mg/dL (0.2-1.3); BLOOD UREA NITROGEN 13 mg/dL (7-20); CALCIUM 10.2 mg/dL (8.4-10.2); CARBON DIOXIDE 18 mmol/L (22-30); CHLORIDE 101 mmol/L (98-107); CREATINE KINASE 27 U/L (30-135); GLUCOSE 320 mg/dL (75-110); POTASSIUM 4.4 mmol/L (3.6-5.0); TOTAL PROTEIN 7.9 g/dL (6.3-8.2)
--- NOTE | 2020-01-04 17:25 | RADIOLOGY REPORT (SQ) ---
EXAM DESCRIPTION: CHEST SINGLE VIEW IMAGES COMPLETED DATE/TIME: 01/04/2020 4:08 pm REASON FOR STUDY: WEAKNESS COMPARISON: Chest radiograph 10/05/2019 EXAM PARAMETERS: NUMBER OF VIEWS: One view. TECHNIQUE: Single frontal radiographic view of the chest acquired. RADIATION DOSE: NA LIMITATIONS: None. FINDINGS: LUNGS AND PLEURA: Lungs are hyperinflated. No focal consolidation or pleural effusion. N o pneumothorax. MEDIASTINUM AND HILAR STRUCTURES: No masses. Contour normal. HEART AND VASCULAR STRUCTURES: Heart normal in size. Normal vasculature. BONES: No acute findings. HARDWARE: None in the chest. OTHER: No other significant finding. IMPRESSION: No acute cardiopulmonary disease. Hyperinflated lungs which can be seen with obstructiv e lung disease. TECHNICAL DOCUMENTATION: JOB ID: [id number] 2010 [employer]- All Rights Reserved Reading location - IP/workstation name: [email or web address]
[2020-01-04] MEDS ORDERED: NORMAL SALINE 1000 ML 1,000 ML IV ONE (18:52)
--- NOTE | 2020-01-04 19:52 | EKG REPORT ---
SEVERITY:- BORDERLINE ECG - SINUS TACHYCARDIA BORDERLINE LEFT AXIS DEVIATION LOW VOLTAGE IN FRONTAL LEADS BORDERLINE T ABNORMALITIES, INFERIOR LEADS : Confirmed by: Ioana Hale 04-Jan-2020 19:51:33
[2020-01-05] MEDS ORDERED: HYDROMORPHONE HCL INJ/PF 2 MG/ML AMPULE IV ONE (00:56)
[2020-01-05] MEDS ORDERED: CEFAZOLIN 1 GM/D5W RTU 1 GM/50 ML RTUPB IV ONE ×2 (02:02→05:00)
[2020-01-05] MEDS: CEPHALEXIN 500 MG CAPSULE PO SCH ×2 (05:08→14:06)
[2020-01-05] MEDS ORDERED: ACETAMINOPHEN 325 MG TABLET PO PRN (05:32)
[2020-01-05] MEDS ORDERED: ALBUTEROL SULFATE HFA (90 MCG/PUFF) 8 GM MDI IH PRN (05:33)
[2020-01-05] MEDS: IBUPROFEN 600 MG TABLET PO SCH ×2 (06:46→13:56)
[2020-01-05] MEDS: OXYCODONE HCL IR 5 MG TABLET PO PRN ×3 (06:47→18:17)
[2020-01-05] MEDS ORDERED: GLIPIZIDE XL 5 MG TAB.ER.24 PO SCH (08:00)
[2020-01-05] MEDS: PREGABALIN 75 MG CAPSULE PO SCH ×2 (09:16→18:17)
[2020-01-05] MEDS ORDERED: ATENOLOL 50 MG TABLET PO SCH (10:00)
[2020-01-05] MEDS ORDERED: SERTRALINE HCL 50 MG TABLET PO SCH (10:00)
[2020-01-05] MEDS ORDERED: CHLORTHALIDONE 25 MG TABLET PO SCH (10:00)
--- NOTE | 2020-01-05 17:47 | RADIOLOGY REPORT (SQ) ---
EXAM DESCRIPTION: FOOT RIGHT COMPLETE IMAGES COMPLETED DATE/TIME: 01/05/2020 5:00 pm REASON FOR STUDY: prolonged skin infection COMPARISON: 12/22/2008 EXAM PARAMETERS: NUMBER OF VIEWS: Three views. TECHNIQUE: AP, lateral and oblique radiographic images acquired of the right foot. LIMITATIONS: None. FINDINGS: MINERALIZATION: Normal. BONES: No acute fracture or dislocation. No worrisome bone lesions. JOINTS: No effusion. SOFT TISSUES: No significant soft tissue swelling. No radiopaque foreign body. OTHER: No other significant finding. IMPRESSION: No acute findings. TECHNICAL DOCUMENTATION: JOB ID: [id number] 2010 [employer]- All Rights Reserved Reading location - IP/workstation name: [email or web address]
[2020-01-05] MEDS ORDERED: IPRATROPIUM/ALBUTEROL 0.5-2.5 MG/3 ML AMPUL NEB PRN (19:27)
[2020-01-05] MEDS ORDERED: ONDANSETRON HCL INJ/PF 4 MG/2 ML SDV IV PRN (19:27)
[2020-01-05] MEDS ORDERED: ONDANSETRON 4 MG TAB.RAPDIS PO PRN (19:27)
[2020-01-05] MEDS ORDERED: HYDROXYZINE HCL 10 MG TABLET PO PRN (19:38)
[2020-01-05] MEDS ORDERED: (PENDING PHARMACY ID) (Oxycodone Hcl [Oxycodone Hcl 10 Mg Tablet] 5 MG) PO PRN (19:38)
[2020-01-05] MEDS ORDERED: ALBUTEROL SULFATE HFA (90 MCG/PUFF) 8 GM MDI (1 MDI/ER DISP) IH PRN (19:38)
[2020-01-05] MEDS ORDERED: VANCOMYCIN HCL INJ 1000 MG VIAL IV SCH (19:45)
--- NOTE | 2020-01-05 19:50 | PDOC H&P ---
History of Present Illness Admission Date/PCP: 01/05/20 17:31 History of Present Illness: LLOYD DOMINGO is a 54 year old female with past medical history significant for Cardenas-Jeremy syndrome with chronic wounds, HTN, HLD, T2DM, asthma, ongoing tobacco abuse who presents to the ED after being sent by her home health nurse who is noticing worsening of the patient's right foot wound with increasing area of wound as well as severe pain preventing the patient from ambulating. On admi ssion, x-ray of right foot was done which showed no acute abnormalities. White blood cell count was up to 14.9. Lactate elevated at 2.4. General surgery consulted for debridement of wound. Patient will need placement at rehab nursing facility to help her regain ambulation abilities. Blood cultures were sent and initially 1/2 is positive for gram-positive cocci. Patient was given Keflex by ED and I have changed this to vancomycin. Patient counseled extensively on smoking cessation. Past Medical History Cardiac Medical History: Reports: Hyperlipidema, Hypertension Pulmonary Medical History: Reports: Asthma Neurological Medical History: Reports: Migraine Endocrine Medical History: Reports: Diabetes Mellitus Type 2 Renal/ Medical History: Denies: End Stage Renal Disease GI Medical History: Denies: Cirrhosis Musculoskeltal Medical History: Reports: Arthritis Skin Medical History: Denies: Eczema, Psoriasis Psychiatric Medical History: Reports: Depression, Tobacco Dependency Hematology: Denies: Anemia, Hemophilia, Bleeding Tendencies, Neutropenia Past Surgical History Past Surgical History: Reports: Cholecystectomy, Orthopedic Surgery - The patient has had multiple cervical and thoracolumbar fusions., Tubal Ligation, Other - The patient has had several exploratory surgeries for endometriosis. Social History Information Source: Patient, Emergency Med Personnel Lives with: Family Smoking Status: Current Every Day Smoker Frequency of Alcohol Use: None Hx Recreational Drug Use: No Drugs: None Hx Prescription Drug Abuse: No - Patient is on chronic narcotic analgesia. She denies any history of addict - Advance Directive Resuscitation Status: Full Code Surrogate healthcare decision maker:: Admitting diagnosis: Right foot cellulitis All aspects of code status discussed with patient/POA including cardioversion, chest compressions, and intubation and the patient/POA indicated they wish to be full code MPOA is designated as: SisterHetal Time spent: Greater than 16 minutes Family History Family History: CAD, CVA, DM, Hyperlipidemia, Hypertension Parental Family History Reviewed: Yes Children Family History Reviewed: Yes Sibling(s) Family History Reviewed.: Yes Medication/Allergy Home Medications: Diazepam [Valium] 10 mg PO BID 01/16/18 Oxycodone HCl [Oxycodone HCl 10 MG Tablet] 5 mg PO Q6HP PRN 01/16/18 Acetaminophen [Tylenol 325 mg Tablet] 650 mg PO Q4HP PRN 01/05/20 Albuterol Sulfate [Proair HFA Inhalation Aerosol 8.5 gm MDI] 2 puff IH Q4HP PRN 01/05/20 Atenolol/Chlorthalidone [Tenoretic 50 Tablet] 1 tab PO QAM 01/05/20 Fluticasone/Salmeterol [Advair 250-50 Diskus 14 Dose/Diskus] 1 puff IH Q12 01/05/20 Glipizide [Glucotrol Xl 5 mg Tab.er] 10 mg PO QAM 01/05/20 Hydroxyzine HCl [Atarax 10 mg Tablet] 25 mg PO Q8HP PRN 01/05/20 Ibuprofen [Motrin 800 mg Tablet] 800 mg PO Q8HP PRN 01/05/20 Pregabalin [Lyrica 75 mg Capsule] 75 mg PO Q12 01/05/20 Sertraline HCl [Zoloft 50 mg Tablet] 25 mg PO DAILY 01/05/20 Allergies/Adverse Reactions: No Known Allergies Allergy (Verified 01/04/20 16:03) Review of Systems All systems: reviewed and no additional remarkable complaints except as stated - Review of systems as per HPI, otherwise negative Physical Exam Vital Signs: Temp Pulse Resp BP Pulse Ox 98.4 F 15 115/66 95 01/04/20 15:54 01/05/20 19:01 01/05/20 19:00 01/05/20 18:01 Intake & Output 01/04/20 01/05/20 01/06/20 06:59 06:59 06:59 Intake Total 1050 Balance 1050 Weight 74.389 kg Exam: General appearance: PRESENT: no acute distress, well-developed, well-nourished Head exam: PRESENT: atraumatic, normocephalic Eye exam: PRESENT: conjunctiva pink. ABSENT: scleral icterus Mouth exam: PRESENT: moist Respiratory exam: PRESENT: clear to auscultation mar. ABSENT: rales, rhonchi, wheezes Cardiovascular exam: PRESENT: RRR. ABSENT: diastolic murmur, rubs, systolic murmur GI/Abdominal exam: PRESENT: normal bowel sounds, soft. ABSENT: distended, guarding, mass, organolmegaly, rebound, tenderness Neurological exam: PRESENT: alert, awake, oriented to person, oriented to place, oriented to time, oriented to situation Psychiatric exam: PRESENT: appropriate affect, normal mood Skin exam: PRESENT: dry, intact, warm Extremity: Right foot with severe tenderness, large wound along medial aspect, unstageable Results Laboratory Results: 01/04/20 16:10 01/04/20 16:10 01/05/20 00:10 Lactic Acid 1.3 01/04/20 01/04/20 16:10 16:10 Creatine Kinase 27 L Troponin I < 0.012 Impressions: Chest X-Ray 01/04/20 16:34 IMPRESSION: No acute cardiopulmonary disease. Hyperinflated lungs which can be seen with obstructive lung disease. Foot X-Ray 01/05/20 16:16 IMPRESSION: No acute findings. Assessment and Plan - Diagnosis (1) Cellulitis of right foot Is this a current diagnosis for this admission?: Yes Plan: Acute on recurrent cellulitis of right foot due to previous Cardenas-Jeremy syndrome with resultant wounds General surgery consulted: Planning debridement Vancomycin IV Blood cultures growing gram-positive cocci in clusters Right foot x-ray showed no acute findings (2) Hx of Cardenas-Jeremy toxic epidermal necrolysis overlap syndrome Is this a current diagnosis for this admission?: Yes Plan: Occurred after being treated for pneumonia with multiple antibiotics As above (3) Hypertension Qualifiers: Hypertension type: unspecified Qualified Code(s): I10 - Essential (primary) hypertension Is this a current diagnosis for this admission?: Yes Plan: No medications continued, controlled (4) Asthma Qualifiers: Is this a current diagnosis for this admission?: Yes Plan: Stable on home inhalers, continued Needs to quit smoking (5) Chronic pain disorder Is this a current diagnosis for this admission?: Yes Plan: Pain medication available as needed (6) Diabetes mellitus type 2 in nonobese Is this a current diagnosis for this admission?: Yes Plan: Low-dose correctional insulin, Accu-Cheks (7) Tobacco abuse Is this a current diagnosis for this admission?: Yes Plan: Counseled extensively on smoking Became suicidal on Chantix reportedly per patient - Time Time Spent with patient: 35 or more minutes Smoking Cessation Education: 3 to 10 minutes Medications reviewed and adjusted accordingly: Yes Anticipated Discharge Disposition: [facility] Anticipated Discharge Timeframe: within 72 hours - Inpatient Certification Based on my medical assessment, after consideration of the patient's comorbidities, presenting symptoms, or acuity I expect that the services needed warrant INPATIENT care.: Yes I certify that my determination is in accordance with my understanding of Medicare's requirements for reasonable and necessary INPATIENT services [42 CFR 412.3e].: Yes Medical Necessity: Significant Comorbidiites Make Outpatient Treatment Too Risky, Need Close Monitoring Due to Risk of Patient Decompensation, Need for IV Antibiotics, Risk of Complication if Not Cared For in Hospital, Risk of Diagnosis Which Will Require Inpatient Eval/Care/Monitoring
[2020-01-05] MEDS ORDERED: DEXTROSE 40% GEL 15 GM TUBE X 2 PO PRN (20:00)
[2020-01-05] MEDS ORDERED: DEXTROSE 50%-WATER SYRINGE 12.5 GM/25 ML DOSE IV PRN (20:00)
[2020-01-05] MEDS ORDERED: DEXTROSE 40% GEL 15 GM TUBE PO PRN (20:00)
[2020-01-05] MEDS ORDERED: DEXTROSE 50%-WATER SYRINGE 25 GM/50 ML DOSE IV PRN (20:00)
[2020-01-05] MEDS ORDERED: GLUCAGON,HUMAN RECOMB 1 MG INJ IM PRN (20:00)
[2020-01-05] MEDS ORDERED: (PENDING PHARMACY ID) (Fluticasone/Salmeterol 1 PUFF) IH SCH (22:00)
[2020-01-05] MEDS ORDERED: PREGABALIN 75 MG CAPSULE PO SCH (22:00)
[2020-01-05] MEDS ORDERED: DIAZEPAM 5 MG TABLET PO SCH (22:00)
[2020-01-05] MEDS ORDERED: VANCOMYCIN HCL INJ 1000 MG VIAL ONE (23:20)
[2020-01-06] MEDS: VANCOMYCIN HCL 1,000 MG in DEXTROSE 5%-WATER 250 ML IV SCH ×2 (00:01→09:23)
[2020-01-06] MEDS: HEPARIN SOD (PORCINE) 5,000 UNIT/ML 1 ML VIAL SUBCUT SCH ×4 (00:01→22:33)
[2020-01-06] MEDS: DIAZEPAM 5 MG TABLET PO SCH ×3 (00:01→22:33)
[2020-01-06] MEDS: INSULIN LISPRO 100 UNIT/ML 3 ML VIAL SUBCUT SCH ×5 (00:03→22:33)
[2020-01-06] MEDS: OXYCODONE HCL IR 5 MG TABLET PO PRN ×3 (00:58→20:14)
[2020-01-06] MEDS: NICOTINE 21 MG/24 HR PATCH.TD24 TD PRN ×2 (02:57→14:20)
[2020-01-06] MEDS: HYDROMORPHONE HCL INJ/PF 2 MG/ML AMPULE IV PRN ×4 (05:03→20:59)
[2020-01-06 07:07] LABS: ABSOLUTE BASOPHILS # (AUTO) 0.1 10^3/uL (0.0-0.2); ABSOLUTE EOSINOPHILS # (AUTO) 0.4 10^3/uL (0.0-0.6); ABSOLUTE LYMPHOCYTES (AUTO) 2.7 10^3/uL (0.5-4.7); ABSOLUTE MONOCYTES (AUTO) 0.5 10^3/uL (0.1-1.4); ABSOLUTE NEUT (AUTO) 3.6 10^3/uL (1.7-8.2); BASOPHILS % (AUTO) 0.9 % (0-2); EOSINOPHILS % (AUTO) 5.2 % (0-6); HEMATOCRIT 38.9 % (36.0-47.0); LYMPHOCYTES % (AUTO) 37.4 % (13-45); MEAN CORPUSCULAR HEMOGLOBIN 32.1 pg (27.0-33.4); MEAN CORPUSCULAR VOLUME 89 fl (80-97); MONOCYTES % (AUTO) 6.8 % (3-13); PLATELET COUNT 204 10^3/uL (150-450); RED BLOOD COUNT 4.36 10^6/uL (3.72-5.28); RED CELL DISTRIBUTION WIDTH 13.1 % (11.5-14.0); SEGMENTED NEUTROPHILS % (AUTO) 49.7 % (42-78); TOTAL CELLS COUNTED % (AUTO) 100 %; WHITE BLOOD COUNT 7.2 10^3/uL (4.0-10.5)
[2020-01-06 07:34] LABS: ANION GAP 7 (5-19); BLOOD UREA NITROGEN 17 mg/dL (7-20); CARBON DIOXIDE 25 mmol/L (22-30); CHLORIDE 104 mmol/L (98-107); GLUCOSE 175 mg/dL (75-110); PHOSPHORUS 5.1 mg/dL (2.5-4.5)
[2020-01-06] MEDS ORDERED: GLIPIZIDE XL 5 MG TAB.ER.24 PO SCH (08:00)
[2020-01-06] MEDS ORDERED: CHLORTHALIDONE PO SCH (08:00)
[2020-01-06] MEDS ORDERED: ATENOLOL PO SCH (08:00)
[2020-01-06] MEDS: FLUTICASONE/VILANTEROL 200-25 MCG/DOSE IH SCH (09:24)
[2020-01-06] MEDS: ATENOLOL 50 MG TABLET PO SCH (09:25)
[2020-01-06] MEDS: DOCUSATE SODIUM 100 MG/10 ML UDC PO SCH (09:25)
[2020-01-06] MEDS: CHLORTHALIDONE 25 MG TABLET PO SCH (09:26)
[2020-01-06] MEDS ORDERED: SERTRALINE HCL 50 MG TABLET PO SCH (10:00)
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
--- NOTE | 2020-01-06 16:00 | PDOC DISCHARGE SUMMARY ---
Impression - Admit/DC Date/PCP Admission Date/Primary Care Provider: 01/05/20 17:31 Discharge Date: 01/06/20 - Discharge Diagnosis (1) Cellulitis of right foot Is this a current diagnosis for this admission?: Yes (2) Hx of Cardenas-Jeremy toxic epidermal necrolysis overlap syndrome Is this a current diagnosis for this admission?: Yes (3) Hypertension Is this a current diagnosis for this admission?: Yes (4) Asthma Is this a current diagnosis for this admission?: Yes (5) Chronic pain disorder Is this a current diagnosis for this admission?: Yes (6) Diabetes mellitus type 2 in nonobese Is this a current diagnosis for this admission?: Yes (7) Tobacco abuse Is this a current diagnosis for this admission?: Yes - Additional Information Resuscitation Status: Full Code Discharge Diet: Diabetic Discharge Activity: Activity As Tolerated, Balance Activity w/Rest Home Medications: RX: Diazepam [Valium] 10 mg PO BID 01/16/18 RX: Oxycodone HCl [Oxycodone HCl 10 MG Tablet] 5 mg PO Q6HP PRN 01/16/18 RX: Acetaminophen [Tylenol 325 mg Tablet] 650 mg PO Q4HP PRN 01/05/20 RX: Albuterol Sulfate [Proair HFA Inhalation Aerosol 8.5 gm MDI] 2 puff IH Q4HP PRN 01/05/20 RX: Atenolol/Chlorthalidone [Tenoretic 50 Tablet] 1 tab PO QAM 01/05/20 RX: Fluticasone/Salmeterol [Advair 250-50 Diskus 14 Dose/Diskus] 1 puff IH Q12 01/05/20 RX: Glipizide [Glucotrol Xl 5 mg Tab.er] 10 mg PO QAM 01/05/20 RX: Hydroxyzine HCl [Atarax 10 mg Tablet] 25 mg PO Q8HP PRN 01/05/20 RX: Pregabalin [Lyrica 75 mg Capsule] 75 mg PO Q12 01/05/20 RX: Sertraline HCl [Zoloft 50 mg Tablet] 25 mg PO DAILY 01/05/20 RX: Collagenase Clostridium Hist. [Santyl Ointment 30 gm] 1 applic TOP BID tube 01/06/20 RX: Docusate Sodium [Colace Udc 100 mg/10 ml Oral Soln] 100 mg PO DAILY udc 10/15/20 RX: Nicotine [Nicoderm 21 mg/24 Hr Transderm Patch] 1 each TD PRN PRN dileep [email or web address] 01/06/20 History of Present Illiness History of Present Illness: LLOYD DOMINGO is a 54 year old female with past medical history significant for Cardenas-Jeremy syndrome with chronic wounds, HTN, HLD, T2DM, asthma, ongoing tobacco abuse who presents to the ED after being sent by her home health nurse who is noticing worsening of the patient's right foot wound with increasing area of wound as well as severe pain preventing the patient from ambulating. On admission, x-ray of right foot was done which showed no acute abnormalities. White blood cell count was up to 14.9. Lactate elevated at 2.4. General surgery consulted for debridement of wound. Patient will need placement at rehab nursing facility to help her regain ambulation abilities. Blood cultures were sent and initially 1/2 is positive for gram-positive cocci. Patient was given Keflex by ED and I have changed this to vancomycin. Patient counseled extensively on smoking cessation. Hospital Course Hospital Course: LLOYD DOMINGO is a 54 year old female with past medical history significant for Cardenas-Jeremy syndrome with chronic wounds, HTN, HLD, T2DM, asthma, ongoing tobacco abuse who presents to the ED after being sent by her home health nurse who is noticing worsening of the patient's right foot wound with increasing area of wound as well as severe pain preventing the patient from ambulating. On admission, x-ray of right foot was done which showed no acute abnormalities. White blood cell count was up to 14.9. Lactate elevated at 2.4. General surgery consulted for debridement of wound. Patient will need placement at rehab nursing facility to help her regain ambulation abilities. Blood cultures were sent and initially 1/2 is positive for gram-positive cocci. Patient was given Keflex by ED and I have changed this to vancomycin. Patient counseled extensively on smoking cessation. General surgery consult on patient and agreed that she needs debridement. After my discussion with them, they recommended that she transfer to [facility] where she can have debridement done by general surgery there. Vancomycin changed to oral Bactrim at discharge. (1) Cellulitis of right foot Is this a current diagnosis for this admission?: Yes Plan: Acute on recurrent cellulitis of right foot due to previous Cardenas-Jeremy syndrome with resultant wounds, persistent wounds nonhealing for 3 months General surgery consulted: Planning debridement to be done at [facility], in agreement that this is likely needed in order to help wound heal Vancomycin IV transitioned to oral Bactrim Blood cultures growing gram-positive cocci in clusters Right foot x-ray showed no acute findings Transferred to [facility] for further wound management including likely debridement (2) Hx of Cardenas-Jeremy toxic epidermal necrolysis overlap syndrome Is this a current diagnosis for this admission?: Yes Plan: Occurred after being treated for pneumonia with multiple antibiotics As above (3) Hypertension Qualifiers: Hypertension type: unspecified Qualified Code(s): I10 - Essential (primary) hypertension Is this a current diagnosis for this admission?: Yes Plan: No medications continued, controlled (4) Asthma Qualifiers: Is this a current diagnosis for this admission?: Yes Plan: Stable on home inhalers, continued Needs to quit smoking (5) Chronic pain disorder Is this a current diagnosis for this admission?: Yes Plan: Pain medication available as needed (6) Diabetes mellitus type 2 in nonobese Is this a current diagnosis for this admission?: Yes Plan: Low-dose correctional insulin, Accu-Cheks (7) Tobacco abuse Is this a current diagnosis for this admission?: Yes Plan: Counseled extensively on smoking Became suicidal on Chantix reportedly per patient Physical Exam Vital Signs: Temp Pulse Resp BP Pulse Ox 98.2 F 84 14 103/58 L 94 01/06/20 11:21 01/06/20 13:42 01/06/20 13:42 01/06/20 11:21 01/06/20 13:42 Intake & Output 01/05/20 01/06/20 01/07/20 06:59 06:59 06:59 Intake Total 1050 770 475 Balance 1050 770 475 Weight 74.389 kg 169.5 kg 76.5 kg Exam: General appearance: PRESENT: no acute distress, well-developed, well-nourished, states she would like to be transferred to [facility] for further wound care Head exam: PRESENT: atraumatic, normocephalic Eye exam: PRESENT: conjunctiva pink. ABSENT: scleral icterus Mouth exam: PRESENT: moist Respiratory exam: PRESENT: clear to auscultation mar. ABSENT: rales, rhonchi, wheezes Cardiovascular exam: PRESENT: RRR. ABSENT: diastolic murmur, rubs, systolic murmur GI/Abdominal exam: PRESENT: normal bowel sounds, soft. ABSENT: distended, guarding, mass, organolmegaly, rebound, tenderness Neurological exam: PRESENT: alert, awake, oriented to person, oriented to place, oriented to time, oriented to situation Psychiatric exam: PRESENT: appropriate affect, normal mood Skin exam: PRESENT: dry, intact, warm Extremity: Right foot with severe tenderness, large wound along medial aspect, unstageable Results Laboratory Results: WBC 7.2 10^3/uL (4.0-10.5) 01/06/20 06:23 RBC 4.36 10^6/uL (3.72-5.28) 01/06/20 06:23 Hgb 14.0 g/dL (12.0-15.5) D 01/06/20 06:23 Hct 38.9 % (36.0-47.0) 01/06/20 06:23 MCV 89 fl (80-97) 01/06/20 06:23 MCH 32.1 pg (27.0-33.4) 01/06/20 06:23 MCHC 36.0 g/dL (32.0-36.0) 01/06/20 06:23 RDW 13.1 % (11.5-14.0) 01/06/20 06:23 Plt Count 204 10^3/uL (150-450) 01/06/20 06:23 Lymph % (Auto) 37.4 % (13-45) 01/06/20 06:23 [place] % (Auto) 6.8 % (3-13) 01/06/20 06:23 Eos % (Auto) 5.2 % (0-6) 01/06/20 06:23 Baso % (Auto) 0.9 % (0-2) 01/06/20 06:23 Absolute Neuts (auto) 3.6 10^3/uL (1.7-8.2) 01/06/20 06:23 Absolute Lymphs (auto) 2.7 10^3/uL (0.5-4.7) 01/06/20 06:23 Absolute Monos (auto) 0.5 10^3/uL (0.1-1.4) 01/06/20 06:23 Absolute Eos (auto) 0.4 10^3/uL (0.0-0.6) 01/06/20 06:23 Absolute Basos (auto) 0.1 10^3/uL (0.0-0.2) 01/06/20 06:23 Seg Neutrophils % 49.7 % (42-78) 01/06/20 06:23 Sodium 136.1 mmol/L (137-145) L 01/06/20 06:23 Potassium 4.0 mmol/L (3.6-5.0) 01/06/20 06:23 Chloride 104 mmol/L (98-107) 01/06/20 06:23 Carbon Dioxide 25 mmol/L (22-30) 01/06/20 06:23 Anion Gap 7 (5-19) 01/06/20 06:23 BUN 17 mg/dL (7-20) 01/06/20 06:23 Creatinine 0.78 mg/dL (0.52-1.25) 01/06/20 06:23 Est GFR ( Amer) > 60 (>60) 01/06/20 06:23 Est GFR (MDRD) Non-Af > 60 (>60) 01/06/20 06:23 Glucose 175 mg/dL (75-110) H 01/06/20 06:23 POC Glucose 193 mg/dL (70-110) H 01/06/20 11:15 Lactic Acid 1.3 mmol/L (0.7-2.1) 01/05/20 00:10 Calcium 9.0 mg/dL (8.4-10.2) 01/06/20 06:23 Phosphorus 5.1 mg/dL (2.5-4.5) H 01/06/20 06:23 Magnesium 1.7 mg/dL (1.6-2.3) 01/06/20 06:23 Total Bilirubin 1.1 mg/dL (0.2-1.3) 01/04/20 16:10 Direct Bilirubin 0.4 mg/dL (0.0-0.4) 01/04/20 16:10 Neonat Total Bilirubin Not Reportable 01/04/20 16:10 Neonat Direct Bilirubin Not Reportable 01/04/20 16:10 Neonat Indirect Bili Not Reportable 01/04/20 16:10 AST 25 U/L (14-36) 01/04/20 16:10 ALT 28 U/L (<35) 01/04/20 16:10 Alkaline Phosphatase 89 U/L (38-126) 01/04/20 16:10 Creatine Kinase 27 U/L (30-135) L 01/04/20 16:10 Troponin I < 0.012 ng/mL 01/04/20 16:10 Total Protein 7.9 g/dL (6.3-8.2) 01/04/20 16:10 Albumin 5.0 g/dL (3.5-5.0) 01/04/20 16:10 Urine Color YELLOW 01/04/20 16:10 Urine Appearance CLEAR 01/04/20 16:10 Urine pH 6.0 (5.0-9.0) 01/04/20 16:10 Ur Specific [place] 1.012 01/04/20 16:10 Urine Protein NEGATIVE mg/dL (NEGATIVE) 01/04/20 16:10 Urine Glucose (UA) >=500 mg/dL (NEGATIVE) H 01/04/20 16:10 Urine Ketones NEGATIVE mg/dL (NEGATIVE) 01/04/20 16:10 Urine Blood NEGATIVE (NEGATIVE) 01/04/20 16:10 Urine Nitrite (Reflex) NEGATIVE (NEGATIVE) 01/04/20 16:10 Urine Bilirubin NEGATIVE (NEGATIVE) 01/04/20 16:10 Urine Urobilinogen NEGATIVE mg/dL (<2.0) 01/04/20 16:10 Leukocyte Esterase Rfl NEGATIVE (NEGATIVE) 01/04/20 16:10 Urine RBC (Auto) 0 /HPF 01/04/20 16:10 U Hyaline Cast (Auto) 1 /LPF 01/04/20 16:10 Urine Bacteria (Auto) TRACE /HPF 01/04/20 16:10 Urine WBC (Reflex) 1 /HPF 01/04/20 16:10 Squamous Epi Cells Auto 5 /HPF 01/04/20 16:10 Urine Ascorbic Acid NEGATIVE (NEGATIVE) 01/04/20 16:10 01/04/20 16:10 Troponin I < 0.012 Impressions: Chest X-Ray 01/04/20 16:34 IMPRESSION: No acute cardiopulmonary disease. Hyperinflated lungs which can be seen with obstructive lung disease. Foot X-Ray 01/05/20 16:16 IMPRESSION: No acute findings. Stroke Is this a Stroke Patient?: No Acute Heart Failure Is this a Heart Failure Patient?: No
[2020-01-06] MEDS: COLLAGENASE CLOSTRIDIUM HIST. OINT 30 GM TOP SCH (18:09)
[2020-01-06] MEDS: SULFAMETHOXAZOLE/TRIMETHOPRIM 800-160 MG TABLET PO SCH (18:10)
[2020-01-07] MEDS: HYDROMORPHONE HCL INJ/PF 2 MG/ML AMPULE IV PRN ×4 (01:16→21:06)
[2020-01-07 06:24] LABS: ABSOLUTE BASOPHILS # (AUTO) 0.1 10^3/uL (0.0-0.2); ABSOLUTE EOSINOPHILS # (AUTO) 0.3 10^3/uL (0.0-0.6); ABSOLUTE LYMPHOCYTES (AUTO) 2.6 10^3/uL (0.5-4.7); ABSOLUTE MONOCYTES (AUTO) 0.4 10^3/uL (0.1-1.4); ABSOLUTE NEUT (AUTO) 3.6 10^3/uL (1.7-8.2); EOSINOPHILS % (AUTO) 4.6 % (0-6); HEMATOCRIT 40.6 % (36.0-47.0); HEMOGLOBIN 14.5 g/dL (12.0-15.5); LYMPHOCYTES % (AUTO) 37.4 % (13-45); MEAN CORPUSCULAR HGB CONC 35.7 g/dL (32.0-36.0); MEAN CORPUSCULAR VOLUME 90 fl (80-97); MONOCYTES % (AUTO) 6.1 % (3-13); PLATELET COUNT 244 10^3/uL (150-450); RED BLOOD COUNT 4.53 10^6/uL (3.72-5.28); SEGMENTED NEUTROPHILS % (AUTO) 50.9 % (42-78); TOTAL CELLS COUNTED % (AUTO) 100 %
[2020-01-07 06:32] LABS: ANION GAP 12 (5-19); BLOOD UREA NITROGEN 14 mg/dL (7-20); CALCIUM 9.8 mg/dL (8.4-10.2); CARBON DIOXIDE 25 mmol/L (22-30); CHLORIDE 99 mmol/L (98-107); GLUCOSE 169 mg/dL (75-110)
[2020-01-07] MEDS: OXYCODONE HCL IR 5 MG TABLET PO PRN (06:34)
[2020-01-07] MEDS: HEPARIN SOD (PORCINE) 5,000 UNIT/ML 1 ML VIAL SUBCUT SCH ×3 (06:34→21:06)
[2020-01-07] MEDS: INSULIN LISPRO 100 UNIT/ML 3 ML VIAL SUBCUT SCH ×4 (08:33→21:06)
[2020-01-07] MEDS: ATENOLOL 50 MG TABLET PO SCH (08:34)
[2020-01-07] MEDS: CHLORTHALIDONE 25 MG TABLET PO SCH (08:35)
[2020-01-07 09:58] LABS: VANCOMYCIN,TROUGH < 5.0 ug/mL (5.0-20.0)
[2020-01-07] MEDS: DOCUSATE SODIUM 100 MG/10 ML UDC PO SCH (10:25)
[2020-01-07] MEDS: SULFAMETHOXAZOLE/TRIMETHOPRIM 800-160 MG TABLET PO SCH ×2 (10:25→17:09)
[2020-01-07] MEDS: FLUTICASONE/VILANTEROL 200-25 MCG/DOSE IH SCH (10:25)
[2020-01-07] MEDS: COLLAGENASE CLOSTRIDIUM HIST. OINT 30 GM TOP SCH ×3 (10:26→19:49)
[2020-01-07] MEDS: DIAZEPAM 5 MG TABLET PO SCH ×2 (10:26→21:07)
[2020-01-07] MEDS: NICOTINE 21 MG/24 HR PATCH.TD24 TD PRN (11:55)
--- NOTE | 2020-01-07 18:53 | PDOC PROGRESS REPORT ---
Subjective Subjective:: LLOYD DOMINGO is a 54 year old female with past medical history significant for Cardenas-Jeremy syndrome with chronic wounds, HTN, HLD, T2DM, asthma, ongoing tobacco abuse who presents to the ED after being sent by her home health nurse who is noticing worsening of the patient's right foot wound with increasing area of wound as well as severe pain preventing the patient from ambulating. On admission, x-ray of right foot was done which showed no acute abnormalities. White blood cell count was up to 14.9. Lactate elevated at 2.4. General surgery consulted for debridement of wound. Patient will need placement at rehab nursing facility to help her regain ambulation abilities. Blood cultures were sent and initially 1 is positive for gram-positive cocci. Patient was given Keflex by ED and I have changed this to vancomycin. Patient counseled extensively on smoking cessation. 01/06/2020 Informed that patient can be discharged to [facility] to have debridement and discharge was arranged 01/07/2020 Discussed the case with the accepting physician at the [facility] and he stated that they do not actually have a general surgeon on staff to contact the patient to the OR for debridement. I have attempted to contact Dr. Barnett multiple times today and he would not speak with me on the phone. We will need him to take the patient to the OR tomorrow for debridement so that [facility]. Per my discussions with case management, they have discussed this with him and this is the plan going forward. She will need to be n.p.o. at midnight tonight. If all goes well, she can go to [facility] tomorrow afternoon. Reason For Visit: RIGHT FOOT CELLULITIS Physical Exam Vital Signs: Temp Pulse Resp BP Pulse Ox 98.5 F 78 18 97/55 L 94 01/07/20 16:09 01/07/20 16:09 01/07/20 16:09 01/07/20 16:09 01/07/20 16:09 Intake & Output 01/06/20 01/07/20 01/08/20 06:59 06:59 06:59 Intake Total 770 1235 940 Balance 770 1235 940 Weight 169.5 kg 81.6 kg Exam: General appearance: PRESENT: no acute distress, well-developed, well-nourished, states she is glad she has been accepted at [facility] Head exam: PRESENT: atraumatic, normocephalic Eye exam: PRESENT: conjunctiva pink. ABSENT: scleral icterus Mouth exam: PRESENT: moist Respiratory exam: PRESENT: clear to auscultation mar. ABSENT: rales, rhonchi, wheezes Cardiovascular exam: PRESENT: RRR. ABSENT: diastolic murmur, rubs, systolic murmur GI/Abdominal exam: PRESENT: normal bowel sounds, soft. ABSENT: distended, guarding, mass, organolmegaly, rebound, tenderness Neurological exam: PRESENT: alert, awake, oriented to person, oriented to place, oriented to time, oriented to situation Psychiatric exam: PRESENT: appropriate affect, normal mood Skin exam: PRESENT: dry, intact, warm Extremity: Right foot with severe tenderness, large closed wound along medial aspect, unstageable, jumps and yells in pain before I have even touched her foot Results Laboratory Results: 01/07/20 05:43 01/07/20 09:15 01/07/20 01/07/20 01/07/20 05:43 05:43 09:15 WBC 7.0 RBC 4.53 Hgb 14.5 Hct 40.6 MCV 90 MCH 32.0 MCHC 35.7 RDW 13.0 Plt Count 244 Seg Neutrophils % 50.9 Sodium 135.6 L Potassium 4.0 Chloride 99 Carbon Dioxide 25 Anion Gap 12 BUN 14 Creatinine 0.69 0.67 Est GFR ( Amer) > 60 > 60 Glucose 169 H Calcium 9.8 01/04/20 17:00 Blood Blood Culture - Final Staphylococcus Epidermidis 01/04/20 17:00 Foot - Ankle Gram Stain - Final 01/04/20 17:00 Foot - Ankle Wound Culture - Final Staphylococcus Aureus Enterococcus Faecalis(Group D) 01/04/20 01/04/20 16:10 16:10 Creatine Kinase 27 L Troponin I < 0.012 Impressions: Chest X-Ray 01/04/20 16:34 IMPRESSION: No acute cardiopulmonary disease. Hyperinflated lungs which can be seen with obstructive lung disease. Foot X-Ray 01/05/20 16:16 IMPRESSION: No acute findings. Assessment and Plan - Diagnosis (1) Cellulitis of right foot Is this a current diagnosis for this admission?: Yes Plan: Acute on recurrent cellulitis of right foot due to previous Cardenas-Jeremy syndrome with resultant wounds General surgery consulted: Planning debridement 01/07 Vancomycin IV Blood cultures growing gram-positive cocci in clusters Right foot x-ray showed no acute findings Pain severely out of proportion to the appearance of wound (2) Hx of Cardenas-Jeremy toxic epidermal necrolysis overlap syndrome Is this a current diagnosis for this admission?: Yes (3) Hypertension Qualifiers: Hypertension type: unspecified Qualified Code(s): I10 - Essential (primary) hypertension Is this a current diagnosis for this admission?: Yes (4) Asthma Qualifiers: Is this a current diagnosis for this admission?: Yes (5) Chronic pain disorder Is this a current diagnosis for this admission?: Yes (6) Diabetes mellitus type 2 in nonobese Is this a current diagnosis for this admission?: Yes (7) Tobacco abuse Is this a current diagnosis for this admission?: Yes - Time Time Spent with patient: 25-34 minutes Medications reviewed and adjusted accordingly: Yes Anticipated Discharge Disposition: [facility] Anticipated Discharge Timeframe: within 24 hours - Inpatient Certification Based on my medical assessment, after consideration of the patient's comorbidities, presenting symptoms, or acuity I expect that the services needed warrant INPATIENT care.: Yes I certify that my determination is in accordance with my understanding of Medicare's requirements for reasonable and necessary INPATIENT services [42 CFR 412.3e].: Yes Medical Necessity: Significant Comorbidiites Make Outpatient Treatment Too Risky, Need Close Monitoring Due to Risk of Patient Decompensation, Need for IV Antibiotics, Risk of Complication if Not Cared For in Hospital, Risk of Diagnosis Which Will Require Inpatient Eval/Care/Monitoring
[2020-01-07] MEDS: HYDROXYZINE PAMOATE 25 MG CAPSULE PO PRN (22:38)
[2020-01-08] MEDS: HEPARIN SOD (PORCINE) 5,000 UNIT/ML 1 ML VIAL SUBCUT SCH ×3 (05:09→21:03)
[2020-01-08] MEDS: HYDROMORPHONE HCL INJ/PF 2 MG/ML AMPULE IV PRN ×4 (05:16→22:24)
[2020-01-08 06:19] LABS: ABSOLUTE BASOPHILS # (AUTO) 0.1 10^3/uL (0.0-0.2); ABSOLUTE EOSINOPHILS # (AUTO) 0.4 10^3/uL (0.0-0.6); ABSOLUTE LYMPHOCYTES (AUTO) 2.3 10^3/uL (0.5-4.7); ABSOLUTE MONOCYTES (AUTO) 0.5 10^3/uL (0.1-1.4); ABSOLUTE NEUT (AUTO) 4.1 10^3/uL (1.7-8.2); BASOPHILS % (AUTO) 1.1 % (0-2); EOSINOPHILS % (AUTO) 5.3 % (0-6); HEMATOCRIT 41.6 % (36.0-47.0); HEMOGLOBIN 14.8 g/dL (12.0-15.5); LYMPHOCYTES % (AUTO) 31.4 % (13-45); MEAN CORPUSCULAR HEMOGLOBIN 32.1 pg (27.0-33.4); MEAN CORPUSCULAR HGB CONC 35.7 g/dL (32.0-36.0); MEAN CORPUSCULAR VOLUME 90 fl (80-97); MONOCYTES % (AUTO) 7.3 % (3-13); PLATELET COUNT 252 10^3/uL (150-450); RED BLOOD COUNT 4.62 10^6/uL (3.72-5.28); RED CELL DISTRIBUTION WIDTH 13.2 % (11.5-14.0); SEGMENTED NEUTROPHILS % (AUTO) 54.9 % (42-78); TOTAL CELLS COUNTED % (AUTO) 100 %; WHITE BLOOD COUNT 7.4 10^3/uL (4.0-10.5)
[2020-01-08 06:38] LABS: ANION GAP 10 (5-19); BLOOD UREA NITROGEN 16 mg/dL (7-20); CALCIUM 9.5 mg/dL (8.4-10.2); CARBON DIOXIDE 26 mmol/L (22-30); CHLORIDE 99 mmol/L (98-107); GLUCOSE 220 mg/dL (75-110); POTASSIUM 3.9 mmol/L (3.6-5.0)
[2020-01-08] MEDS ORDERED: GLUCAGON,HUMAN RECOMB 1 MG INJ SUBCUT PRN (08:41)
[2020-01-08] MEDS ORDERED: DEXTROSE 50%-WATER 25 GM/50 ML DISP.SYRIN IV PRN ×2 (08:41)
[2020-01-08] MEDS ORDERED: DEXTROSE 40% GEL 15 GM TUBE PO PRN ×2 (08:41)
[2020-01-08] MEDS: INSULIN LISPRO 100 UNIT/ML 3 ML VIAL SUBCUT SCH ×4 (09:02→21:03)
[2020-01-08] MEDS: ATENOLOL 50 MG TABLET PO SCH ×2 (09:03→09:23)
[2020-01-08] MEDS: CHLORTHALIDONE 25 MG TABLET PO SCH (09:03)
[2020-01-08] MEDS: DOCUSATE SODIUM 100 MG CAPSULE PO SCH (09:04)
[2020-01-08] MEDS: DIAZEPAM 5 MG TABLET PO SCH ×3 (09:04→21:03)
[2020-01-08] MEDS: COLLAGENASE CLOSTRIDIUM HIST. OINT 30 GM TOP SCH (09:14)
[2020-01-08] MEDS: FLUTICASONE/VILANTEROL 200-25 MCG/DOSE IH SCH (09:24)
[2020-01-08] MEDS ORDERED: LIDOCAINE 0.5% INJ-PF (5 MG/ML) 50 ML SDV ONE (12:45)
[2020-01-08] MEDS ORDERED: ONDANSETRON HCL INJ/PF 4 MG/2 ML SDV ONE (12:52)
[2020-01-08] MEDS ORDERED: FENTANYL CITRATE INJ/PF 100 MCG/2 ML AMPUL ONE ×2 (12:52→14:04)
[2020-01-08] MEDS ORDERED: KETAMINE HCL INJ 500 MG/10 ML VIAL ONE (12:52)
[2020-01-08] MEDS ORDERED: PROPOFOL INJ 200 MG/20 ML VIAL IV ONE (12:52)
[2020-01-08] MEDS ORDERED: MIDAZOLAM 2 MG/2 ML INJ ONE (12:52)
[2020-01-08] MEDS ORDERED: CEFAZOLIN INJ 1 GM VIAL ONE (13:03)
[2020-01-08] MEDS ORDERED: SILVER SULFADIAZINE 1% CREAM 25 GM ONE (13:05)
[2020-01-08] MEDS ORDERED: DIPHENHYDRAMINE HCL 50 MG/ML VIAL IV PRN (14:04)
[2020-01-08] MEDS ORDERED: MORPHINE SULFATE 10 MG/ML INJ IV PRN (14:04)
[2020-01-08] MEDS ORDERED: FENTANYL CITRATE INJ/PF 100 MCG/2 ML AMPUL IV PRN ×3 (14:04)
[2020-01-08] MEDS ORDERED: PROMETHAZINE HCL INJ 25 MG/1 ML VIAL IV PRN (14:04)
[2020-01-08] MEDS ORDERED: MEPERIDINE HCL/PF INJ 25 MG/1 ML DISP.SYRIN IV PRN (14:04)
--- NOTE | 2020-01-08 14:20 | Operative Report ---
Operative Report DATE OF SURGERY: 01/08/20 PREOPERATIVE DIAGNOSIS: Chronic thickened blister formation along the right foot medial aspect and along the right heel POSTOPERATIVE DIAGNOSIS: Same OPERATION: Sharp debridement of necrotic full-thickness skin and subcutaneous a tiana on the right foot. The main wound roughly measured 8 x 3 cm and the more distal near the heel is about 2 x 2 cm. TISSUE REMOVED OR ALTERED: Necrotic skin full-thickness and small amount of drainage sent for culture COMPLICATIONS: None ESTIMATED BLOOD LOSS: 5 cc QUANTITATIVE BLOOD LOSS: 5 INTRAOPERATIVE FINDINGS: Full-thickness necrotic skin down to the subcutaneous area with the larger wound measuring 8 cm long by 3 cm wide and the right heel necrotic skin area measuring 2 x 2 cm. Small amount of light purulent material noted and this was sent for CT culture PROCEDURE: After adequate IV sedation patient was placed in supine position on the right foot prepped and draped in the usual sterile fashion. Appropriate timeout was then called. The right foot was then prepped and draped in the usual sterile fashion. Local anesthesia infiltrated around the wounds on the right foot and heel using about 10 cc of half percent lidocaine. The necrotic full-thickness skin area was then debrided sharply using 10 blade down to the subcutaneous area. Small amount of yellowish drainage was sent for culture. The subcu necrotic area was sharply debrided further using 10 blade. The necrotic skin area on the right heel which was roughly measuring 2 x 2 cm was then done using 15 blade. The main ulcer site roughly measures 8 cm x 3 cm wide. The operative sites were then irrigated as well as the whole right foot and in between the toes. A Silvadene cream was then placed over the wounds and wrapped with 4 x 4's and Kerlix. Patient tolerated procedure well and brought to the recovery room in satisfactory condition.
[2020-01-08] MEDS ORDERED: OXYCODONE HCL IR 5 MG TABLET ONE (14:37)
[2020-01-08] MEDS: OXYCODONE HCL IR 5 MG TABLET PO PRN ×2 (14:38→21:02)
[2020-01-08] MEDS ORDERED: CEFAZOLIN 1 GM/D5W RTU 1 GM/50 ML RTUPB IV ONE ×2 (17:00→17:44)
--- NOTE | 2020-01-08 18:00 | PDOC PROGRESS REPORT ---
Subjective Subjective:: LLOYD DOMINGO is a 54 year old female with past medical history significant for Cardenas-Jeremy syndrome with chronic wounds, HTN, HLD, T2DM, asthma, ongoing tobacco abuse who presents to the ED after being sent by her home health nurse who is noticing worsening of the patient's right foot wound with increasing area of wound as well as severe pain preventing the patient from ambulating. On admission, x-ray of right foot was done which showed no acute abnormalities. White blood cell count was up to 14.9. Lactate elevated at 2.4. General surgery consulted for debridement of wound. Patient will need placement at rehab nursing facility to help her regain ambulation abilities. Blood cultures were sent and initially 03/25 is positive for gram-positive cocci. Patient was given Keflex by ED and I have changed this to vancomycin. Patient counseled extensively on smoking cessation. 01/06/2020 Informed that patient can be discharged to [facility] to have debridement and discharge was arranged 01/07/2020 Discussed the case with the accepting physician at the [facility] and he stated that they do not actually have a general surgeon on staff to contact the patient to the OR for debridement. I have attempted to contact Dr. Barnett multiple times today and he would not speak with me on the phone. We will need him to take the patient to the OR tomorrow for debridement so that she can go to [facility] afterwards. Per my discussions with case management, they have discussed this with him and this is the plan going forward. She will need to be n.p.o. at midnight tonight. If all goes well, she can go to [facility] tomorrow afternoon. 01/08/2020 Patient underwent debridement today successfully, discussed with general acuna darlene. I believe patient can go to [facility] whenever they are able to accept her. We will plan on trying to get her there tomorrow and if this is not feasible then we will do it on Friday. Labs and vitals reviewed and these are stable. I increased the patient's as needed Dilaudid in anticipation of pain after surgery. Reason For Visit: RIGHT FOOT CELLULITIS Physical Exam Vital Signs: Temp Pulse Resp BP Pulse Ox 98.2 F 88 18 92/62 L 93 01/08/20 17:25 01/08/20 17:25 01/08/20 17:25 10/17/20 17:25 01/08/20 17:25 Intake & Output 01/07/20 01/08/20 01/09/20 06:59 06:59 06:59 Intake Total 1235 940 650 Output Total 5 Balance 1235 940 645 Weight 81.6 kg 74.2 kg Exam: General appearance: PRESENT: no acute distress, well-developed, well-nourished, states she feels well today and is anticipating her surgery Head exam: PRESENT: atraumatic, normocephalic Eye exam: PRESENT: conjunctiva pink. ABSENT: scleral icterus Mouth exam: PRESENT: moist Respiratory exam: PRESENT: clear to auscultation mar. ABSENT: rales, rhonchi, wheezes Cardiovascular exam: PRESENT: RRR. ABSENT: diastolic murmur, rubs, systolic murmur GI/Abdominal exam: PRESENT: normal bowel sounds, soft. ABSENT: distended, guarding, mass, organolmegaly, rebound, tenderness Neurological exam: PRESENT: alert, awake, oriented to person, oriented to place, oriented to time, oriented to situation Psychiatric exam: PRESENT: appropriate affect, normal mood Skin exam: PRESENT: dry, intact, warm Extremity: Right foot with severe tenderness, large closed wound along medial aspect, unstageable, jumps and yells in pain before I have even touched her foot Results Laboratory Results: 01/08/20 05:50 01/08/20 05:50 01/08/20 01/08/20 05:50 05:50 WBC 7.4 RBC 4.62 Hgb 14.8 Hct 41.6 MCV 90 MCH 32.1 MCHC 35.7 RDW 13.2 Plt Count 252 Seg Neutrophils % 54.9 Sodium 134.6 L Potassium 3.9 Chloride 99 Carbon Dioxide 26 Anion Gap 10 BUN 16 Creatinine 0.72 Est GFR ( Amer) > 60 Glucose 220 H Calcium 9.5 01/04/20 01/04/20 16:10 16:10 Creatine Kinase 27 L Troponin I < 0.012 Impressions: Chest X-Ray 01/04/20 16:34 IMPRESSION: No acute cardiopulmonary disease. Hyperinflated lungs which can be seen with obstructive lung disease. Foot X-Ray 01/05/20 16:16 IMPRESSION: No acute findings. Assessment and Plan - Diagnosis (1) Cellulitis of right foot Is this a current diagnosis for this admission?: Yes Plan: Acute on recurrent cellulitis of right foot due to previous Cardenas-Jeremy syndrome with resultant wounds General surgery consulted: Completed debridement 01/07 Vancomycin IV Blood cultures growing gram-positive cocci in clusters Right foot x-ray showed no acute findings Pain severely out of proportion to the appearance of wound (2) Hx of Cardenas-Jeremy toxic epidermal necrolysis overlap syndrome Is this a current diagnosis for this admission?: Yes Plan: Occurred after being treated for pneumonia with multiple antibiotics As above (3) Hypertension Qualifiers: Hypertension type: unspecified Qualified Code(s): I10 - Essential (primary) hypertension Is this a current diagnosis for this admission?: Yes (4) Asthma Qualifiers: Is this a current diagnosis for this admission?: Yes (5) Chronic pain disorder Is this a current diagnosis for this admission?: Yes (6) Diabetes mellitus type 2 in nonobese Is this a current diagnosis for this admission?: Yes (7) Tobacco abuse Is this a current diagnosis for this admission?: Yes - Time Time Spent with patient: 25-34 minutes Medications reviewed and adjusted accordingly: Yes Anticipated Discharge Disposition: Intermediate Care Facility Anticipated Discharge Timeframe: within 24 hours - Inpatient Certification Based on my medical assessment, after consideration of the patient's comorbidities, presenting symptoms, or acuity I expect that the services needed warrant INPATIENT care.: Yes I certify that my determination is in accordance with my understanding of Medicare's requirements for reasonable and necessary INPATIENT services [42 CFR 412.3e].: Yes Medical Necessity: Significant Comorbidiites Make Outpatient Treatment Too Risky, Need Close Monitoring Due to Risk of Patient Decompensation, Risk of Complication if Not Cared For in Hospital, Risk of Diagnosis Which Will Require Inpatient Eval/Care/Monitoring
[2020-01-08] MEDS: NICOTINE 21 MG/24 HR PATCH.TD24 TD PRN (18:18)
[2020-01-09] MEDS: HYDROXYZINE PAMOATE 25 MG CAPSULE PO PRN (00:30)
[2020-01-09] MEDS: HYDROMORPHONE HCL INJ/PF 2 MG/ML AMPULE IV PRN ×2 (04:45→09:12)
[2020-01-09] MEDS: HEPARIN SOD (PORCINE) 5,000 UNIT/ML 1 ML VIAL SUBCUT SCH (05:31)
[2020-01-09] MEDS: INSULIN LISPRO 100 UNIT/ML 3 ML VIAL SUBCUT SCH ×2 (08:01→11:56)
[2020-01-09] MEDS: OXYCODONE HCL IR 5 MG TABLET PO PRN (08:02)
[2020-01-09] MEDS: ATENOLOL 50 MG TABLET PO SCH (08:03)
[2020-01-09] MEDS: CHLORTHALIDONE 25 MG TABLET PO SCH (08:03)
[2020-01-09] MEDS: DOCUSATE SODIUM 100 MG CAPSULE PO SCH (09:13)
[2020-01-09] MEDS: DIAZEPAM 5 MG TABLET PO SCH (09:13)
[2020-01-09] MEDS: FLUTICASONE/VILANTEROL 200-25 MCG/DOSE IH SCH (09:13)
[2020-01-09 12:10] VITALS: BP 105/65
== END 2020-01-09 12:47 | disposition short-term general hospital (02) | DRG 571 ==
LOC: ER 15:53 → EH 01-05 17:31 → 4S 01-05 23:12
PROVIDERS: ADMIT Internal Medicine; ATTEND Internal Medicine
PROC: 0JBQ0ZZ Excision of Right Foot Subcutaneous Tissue and Fascia, Open Approach (ICD-10-PCS; principal; 2020-01-08 13:00)
DX: L03.115 Cellulitis of right lower limb (principal); L51.3 Stevens-Johnson syndrome-toxic epidermal necrolysis overlap syndrome; I10 Essential (primary) hypertension; G89.29 Other chronic pain; E11.9 Type 2 diabetes mellitus without complications; J45.909 Unspecified asthma, uncomplicated; E78.5 Hyperlipidemia, unspecified; F32.9 Major depressive disorder, single episode, unspecified; E78.00 Pure hypercholesterolemia, unspecified; B95.61 Methicillin susceptible Staphylococcus aureus infection as the cause of diseases classified elsewhere; B95.2 Enterococcus as the cause of diseases classified elsewhere; T36.8X5S Adverse effect of other systemic antibiotics, sequela; F17.210 Nicotine dependence, cigarettes, uncomplicated; Z03.818 Encounter for observation for suspected exposure to other biological agents ruled out; Z79.899 Other long term (current) drug therapy; Z79.891 Long term (current) use of opiate analgesic; Z79.51 Long term (current) use of inhaled steroids; Z87.898 Personal history of other specified conditions; Z82.49 Family history of ischemic heart disease and other diseases of the circulatory system; Z82.3 Family history of stroke; Z83.3 Family history of diabetes mellitus
CPT/HCPCS: 00400; 36415; 71045; 80048; 80053; 80202; 81001; 82550; 82565; 82962; 83605; 83735; 84100; 84484; 85025; 87040; 87070; 87075; 87077; 87186; 87205; 87635; 93005; 93010; 96374; 96375; 99140; 99285; C9803; J0690; J1170; J1644; J1815; J2250; J2405; J2704; J3010; J3370; J3490; J7030; J7060; J7120

== ENCOUNTER → 2020-04-05 | Outpatient (CLI) | payer MEDICARE, MEDICAID ==
--- NOTE | 2020-04-05 14:07 | ER RDC ASSESSMENT REPORT ---
Intake - In the Last 14 days Have you traveled outside [place]?: No Have you been in close contact with someone CONFIRMED: Yes Worked in Healthcare?: No - Symptoms Subjective Fever([place] feverish): No Chills: No Muscule Aches: No Runny Nose: Yes Sore Throat: Yes Cough (New or worsening chronic cough): No Shortness of breath: No Nausea or Vomiting: Yes Headache: Yes Abdominal Pain: No Diarrhea(3 or more loose stools in last 24 hours): Yes - Do you have any of the following Chronic lung disease: Asthma or emphysema or COPD: Yes Cystic Fibrosis: No Diabetes: Yes High Blood Pressure: Yes Cardiovascular Disease: Yes Chronic Kidney Disease: No Chronic Liver Disease: No Chronic blood disorder like Sickle Cell Disease: No Weak immune system due to disease or medication: No Neurologic condition that limits movement: No Developmental delay - Moderate to Severe: No Recent (within past 2 weeks) or current : No Morbid Obesity (>100 pounds over ideal weight): No - Objective Temperature: 98.1 F Pulse Rate: 79 Respiratory Rate: 16 Blood Pressure: 118/65 O2 Sat by Pulse Oximetry: 96 Objective: Given above, testing performed: flu, strep, covid Disposition: Home; Selfcare General - General Stated Complaint: nausea, headache Mode of Arrival: Ambulatory Information source: Patient - HPI Notes: 55-year-old female presents to [facility] clinic for COVID-19 testing. Patient does report contact with Covid positive individual within the past week. Onset of symptoms 03/26/2020. Patient is reporting rhinorrhea, sore throat, nausea, headache, and a few episodes of diarrhea. Denies any change in taste or smell, fever or chills, myalgia, cough or shortness of breath, or abdominal pain. - Related Data Allergies/Adverse Reactions: No Known Allergies Allergy (Verified 01/04/20 16:03) Past Medical History - General Information source: Patient - Social History Smoking Status: Current Every Day Smoker Cigarette use (# per day): Yes - 20 Smoking Education Provided: Yes Family History: CAD, CVA, DM, Hyperlipidemia, Hypertension - Past Medical History Cardiac Medical History: Reports: Hx Hypercholesterolemia, Hx Hypertension Pulmonary Medical History: Reports: Hx Asthma EENT Medical History: Reports: None Neurological Medical History: Reports: Hx Migraine Endocrine Medical History: Reports: Hx Diabetes Mellitus Type 2 Renal/ Medical History: Reports: None. Denies: Hx End Stage Renal Disease, Hx Peritoneal Dialysis Malignancy Medical History: Reports: None GI Medical History: Reports: None. Denies: Hx Cirrhosis Musculoskeletal Medical History: Reports Hx Arthritis Skin Medical History: Reports None, Denies Hx Eczema, Denies Hx Psoriasis Psychiatric Medical History: Reports: Hx Bipolar Disorder, Hx Depression Traumatic Medical History: Reports: None Infectious Medical History: Reports: None Past Surgical History: Reports: Hx Cholecystectomy, Hx Orthopedic Surgery - The patient has had multiple cervical and thoracolumbar fusions., Hx Tubal Ligation, Other - The patient has had several exploratory surgeries for endometriosis. Physical Exam - General General appearance: Appears well, Alert In distress: None Notes: PHYSICAL EXAMINATION: GENERAL: Well-appearing and in no acute distress. HEAD: Atraumatic, normocephalic. EYES: sclera anicteric, conjunctiva are normal. ENT: nares patent. Moist mucous membranes. NECK: Normal range of motion, supple without lymphadenopathy. LUNGS: No increased work of breathing. Lung sounds CTAB and equal. No wheezes rales or rhonchi. HEART: Regular rate and rhythm without murmurs. ABDOMEN: Soft, nontender, normal bowel sounds, no guarding. EXTREMITIES: Normal range of motion, no pitting edema. No cyanosis. NEUROLOGICAL: A&O x 3. Normal speech. PSYCH: Normal mood, normal affect. SKIN: Warm, Dry, normal turgor, no rashes or lesions noted Patient Education/Counseling Counseling/Education: Patient presents with symptoms associated with possible Covid 19 infection. Patient does not have emergency worrying symptoms such as difficulty breathing, shortness of breath, chest pain, pressure, confusion or cyanosis. Patient appears suitable for discharge as vital signs are stable and patient is nontoxic in appearance. Good return precautions have been discussed with patient, patient verbalized understanding and is agreeable with discharge plan of care at this time. Guidance for worsening S/SX: As a person under investigation for Covid 19, the [facility] of Health and Human Services, division of public health advises you to adhere to the following guidance until your test results are reported to you. If your test result is positive, you will receive additional information from your provider and your local health department at that time. Remain at home until you are cleared by the health provider or public health authorities. Keep a log of visitors to your home, notify any visitors to your home of your isolation status. If you plan to move to a new address or leave the county, notify the local health department in your County. Call your doctor or seek care if you have an urgent medical need. Before seeking medical care, call ahead to get instructions from the provider before arriving at the medical office clinic or hospital. Notify them that you are being tested for the virus that causes Covid 19 so that arrangements can be made, as necessary, to prevent transmission to others in the healthcare setting. Next, notify the local health department in your county. If a medical emergency arises and you need to call 911, inform the first responders that you are being tested for the virus that causes Covid 19. Next, notify the local health department in your county. RDC Discharge - Discharge Clinical Impression: Encounter for screening for COVID-19 Condition: Good Disposition: Home; Selfcare
[2020-04-05 14:10] VITALS: BP 118/65
[2020-04-05 14:35] LABS: A TYPE INFLUENZA AG NEGATIVE (NEGATIVE); B INFLUENZA AG NEGATIVE (NEGATIVE)
== END ==
LOC: RDC 13:13
PROVIDERS: ATTEND Registered Nurse
DX: Z20.822 Contact with and (suspected) exposure to COVID-19 (principal); J02.9 Acute pharyngitis, unspecified; R11.0 Nausea; J34.89 Other specified disorders of nose and nasal sinuses; R51.9 Headache, unspecified; R19.7 Diarrhea, unspecified; I10 Essential (primary) hypertension; E78.00 Pure hypercholesterolemia, unspecified; E11.9 Type 2 diabetes mellitus without complications; F17.210 Nicotine dependence, cigarettes, uncomplicated; Z71.6 Tobacco abuse counseling; M13.80 Other specified arthritis, unspecified site; F31.9 Bipolar disorder, unspecified; Z87.09 Personal history of other diseases of the respiratory system
CPT/HCPCS: 87070; 87880; 87804; 99211; U0003; G0463; C9803; 87635